=== PATIENT | male | born 2000 | race Two or more races ===

== ENCOUNTER 2018-05-27 19:21 | Observation (INO) | payer SELFPAY ==
[~2018-05-27] VITALS: Ht 185.4 cm; Wt 72.6 kg
[2018-05-27] MEDS ORDERED: SODIUM CHLORIDE 0.9% 1,000 ML IV ONE (20:00)
[2018-05-27 20:27] LABS: Basophils # (auto) 0 uL; Basophils % (auto) 0.6 % (0.0-2.0); Eosinophils # (auto) 0 uL; Eosinophils % (auto) 0.5 % (0.0-7.0); Hematocrit 44.4 % (41.0-53.0); Hemoglobin 15.2 g/dL (13.5-17.5); Lymphocytes # (auto) 0.7 uL; Lymphocytes % (auto) 12.4 % (10.0-50.0); Mean Corpuscular Hemoglobin 31.7 pg (28.0-32.0); Mean Corpuscular Hgb Conc. 34.3 g/dL (32.0-36.0); Mean Corpuscular Volume 92.3 fL (80.0-100.0); Monocytes # (auto) 0.4 uL; Monocytes % (auto) 6.2 % (0.0-12.0); Neutrophils # (auto) 4.6 uL; Neutrophils % (auto) 80.3 % (37.0-80.0); Platelet Count (auto) 237 10^3/uL (140-450); Red Blood Cells 4.81 10^6/uL (4.5-5.90); Red Cell Distribution Width 13.2 % (11.8-14.3); White Blood Cell 5.7 10^3/uL (4.4-10.8)
[2018-05-27 20:30] VITALS: BP 127/57
[2018-05-27 20:43] LABS: Anion Gap 9 (5-15); Blood Alcohol < 3.0 mg/dL (0-5); Calcium 8.3 mg/dL (8.5-10.1); Carbon Dioxide 26 mmol/L (21-32); Chloride 106 mmol/L (98-107); Glucose 125 mg/dL (74-106); Potassium 4.7 mmol/L (3.5-5.1); Sodium 141 mmol/L (136-145)
[2018-05-27 20:48] LABS: Alanine Aminotransferase 18 U/L (16-61); Aspartate Aminotransferase 17 U/L (15-37); Bilirubin, Total 0.6 mg/dL (0.2-1.0); Blood Urea Nitrogen 14 mg/dL (7-18); GFR African American 123 mL/min; GFR Non-African American 101 mL/min
[2018-05-27 20:50] LABS: Alkaline Phosphatase 104 U/L (45-117); Total Protein 7.3 g/dL (6.4-8.2)
[2018-05-27 22:05] LABS: Urine Bacteria NONE SEEN /hpf (None Seen); Urine Blood Negative /uL (Negative); Urine Hyaline Cast FEW /lpf (0 - 2); Urine Mucus FEW (None Seen); Urine Specific Gravity 1.024 (1.001-1.035); Urine WBC 2 /hpf (0 - 3)
[2018-05-27 22:16] LABS: Amphetamine Screen, Urine NEGATIVE (NEGATIVE); Barbiturate Scree,Urine NEGATIVE (NEGATIVE); Benzodiazephine Screen, Urine NEGATIVE (NEGATIVE); Cannabinoid Screen, Urine POSITIVE (NEGATIVE); Cocaine Screen, Urine NEGATIVE (NEGATIVE); Opiate Scree,Urine NEGATIVE (NEGATIVE); Phencyclidine Screen, Urine NEGATIVE (NEGATIVE)
== END 2018-05-27 22:45 | disposition home or self-care (01) | DRG 312 ==
LOC: ER 19:21 → OVERFLOW 19:22 → ER 22:43
PROVIDERS: ADMIT Family Medicine; ATTEND Family Medicine
DX: R55 Syncope and collapse (principal); F12.90 Cannabis use, unspecified, uncomplicated; R51 Headache
CPT/HCPCS: 36415; 70450; 71045; 80053; 80307; 80320; 81001; 82962; 83735; 85025; 96360; 99285; G0378

== ENCOUNTER 2020-02-13 17:55 | Inpatient (IN) | payer MEDICAID ==
[~2020-02-13] VITALS: Ht 188 cm; Wt 79.6 kg
[2020-02-13] MEDS ORDERED: MORPHINE SULFATE 4 MG/ML SYR/VIAL IV ONE (19:00)
[2020-02-13] MEDS ORDERED: ONDANSETRON HCL 4 MG/2 ML VIAL IV ONE (19:00)
[2020-02-13 19:22] LABS: Basophils # (auto) 0 10 ^3/uL (0-0.2); Basophils % (auto) 0.3 % (0.0-2.0); Eosinophils # (auto) 0.1 10 ^3/uL (0-0.8); Eosinophils % (auto) 0.8 % (0.0-7.0); Hematocrit 42.8 % (41.0-53.0); Hemoglobin 14.4 g/dL (13.5-17.5); Lymphocytes # (auto) 0.9 10 ^3/uL (0.4-5.4); Lymphocytes % (auto) 8.7 % (10.0-50.0); Mean Corpuscular Hemoglobin 31.6 pg (28.0-32.0); Mean Corpuscular Hgb Conc. 33.6 g/dL (32.0-36.0); Mean Corpuscular Volume 93.9 fL (80.0-100.0); Monocytes # (auto) 0.8 10 ^3/uL (0-1.3); Monocytes % (auto) 7.7 % (0.0-12.0); Neutrophils # (auto) 8.2 10 ^3/uL (1.6-8.6); Neutrophils % (auto) 82.5 % (37.0-80.0); Nucleated Red Blood Cells % 0.1 %; Platelet Count (auto) 227 10^3/uL (140-450); Red Blood Cells 4.56 10^6/uL (4.5-5.90); Red Cell Distribution Width 12.9 % (11.8-14.3); White Blood Cell 9.9 10^3/uL (4.4-10.8)
[2020-02-13] MEDS ORDERED: SODIUM CHLORIDE 0.9% 1,000 ML IV SCH (19:32)
[2020-02-13 19:37] LABS: Albumin 3.2 g/dL (3.4-5.0); Calcium 7.9 mg/dL (8.5-10.1); Potassium 3.9 mmol/L (3.5-5.1)
[2020-02-13 19:40] LABS: BUN/Creatinine Ratio 15.1; Bilirubin, Total 0.2 mg/dL (0.2-1.0); Total Protein 6.5 g/dL (6.4-8.2)
[2020-02-13] MEDS ORDERED: DOCUSATE SOD 100 MG CAP PO PRN (19:45)
[2020-02-13] MEDS ORDERED: ALUM & MAG HYDROX-SIMETH LIQ(MAALOX) 30 ML PO PRN (19:45)
[2020-02-13] MEDS ORDERED: METOCLOPRAMIDE HCL 5MG/ml INJ 2ml VIAL IV PRN (19:45)
[2020-02-13] MEDS ORDERED: MORPHINE SULF INJ 2 MG/ML SYRINGE 1ML IV PRN (19:45)
[2020-02-13] MEDS ORDERED: NITROGLYCERIN 0.4 MG SL TAB SL PRN (19:45)
[2020-02-13] MEDS ORDERED: LORazepam 0.5 MG TAB PO PRN (19:45)
[2020-02-13 19:48] LABS: INR 1.07 (0.9-1.15); Partial Thromboplastin Time 25.1 sec (23.64-32.05)
[2020-02-13] MEDS: HYDROcodone-ACET 5/325MG TAB PO PRN (20:05)
--- NOTE | 2020-02-13 21:15 | NUR ---
MS admit from ER GABI HANNA admitted to tele/MS after SBAR received. Patient oriented to Evelia Myrick, primary RN, unit, room, bed, and unit policies regarding patient care and visiting hours. Patient weighed by bedscale and encouraged to call if they need something. All questions and concerns addressed, patient verbalized understanding. Note:
[2020-02-13 21:30] VITALS: BP 134/83
[2020-02-13] MEDS: MORPHINE SULFATE 4 MG/ML SYR/VIAL IV PRN (21:33)
--- NOTE | 2020-02-13 21:33 | NUR ---
PT MEDICATED WITH MORPHINE FOR PAIN IN RIGHT LEG SCALE 1-10 -9.
[2020-02-14] VITALS (7 sets, daily range): BP systolic 144–170; BP diastolic 81–96
[2020-02-14] MEDS: SODIUM CHLORIDE 0.9% 1,000 ML IV SCH ×3 (00:30→21:30)
[2020-02-14] MEDS: HYDROcodone-ACET 5/325MG TAB PO PRN ×2 (05:56→12:52)
[2020-02-14 06:06] LABS: Basophils # (auto) 0 10 ^3/uL (0-0.2); Basophils % (auto) 0.3 % (0.0-2.0); Eosinophils # (auto) 0.2 10 ^3/uL (0-0.8); Eosinophils % (auto) 2.6 % (0.0-7.0); Hemoglobin 14.4 g/dL (13.5-17.5); Lymphocytes # (auto) 1.4 10 ^3/uL (0.4-5.4); Lymphocytes % (auto) 19.3 % (10.0-50.0); Mean Corpuscular Hgb Conc. 34.2 g/dL (32.0-36.0); Mean Corpuscular Volume 93.5 fL (80.0-100.0); Monocytes # (auto) 0.8 10 ^3/uL (0-1.3); Monocytes % (auto) 11.2 % (0.0-12.0); Neutrophils # (auto) 4.8 10 ^3/uL (1.6-8.6); Neutrophils % (auto) 66.6 % (37.0-80.0); Nucleated Red Blood Cells % 0.1 %; Platelet Count (auto) 214 10^3/uL (140-450); Red Blood Cells 4.49 10^6/uL (4.5-5.90); Red Cell Distribution Width 12.7 % (11.8-14.3); White Blood Cell 7.2 10^3/uL (4.4-10.8)
[2020-02-14 06:23] LABS: INR 1.05 (0.9-1.15); Partial Thromboplastin Time 26.8 sec (23.64-32.05)
[2020-02-14 06:36] LABS: Potassium 3.9 mmol/L (3.5-5.1)
[2020-02-14 06:53] LABS: Albumin 3.1 g/dL (3.4-5.0); BUN/Creatinine Ratio 14.1; Bilirubin, Total 0.4 mg/dL (0.2-1.0); Magnesium 2.3 mg/dL (1.6-2.6); Phosphorus 4.1 mg/dL (2.5-4.90); Total Protein 6.2 g/dL (6.4-8.2)
--- NOTE | 2020-02-14 07:21 | NUR ---
GOOD RELIEF FROM [facility] 1 TAB GIVEN AT 0556 FOR BONE PAIN. PT RESTING COMFORTABLY WITH EYES CLOSED AND RESP EVEN UNLAB. CALL LIGHT IN REACH WITH TWO SIDERAILS UP.
--- NOTE | 2020-02-14 07:25 | NUR ---
CARE ENDORSED TO ALEXANDER TOBIN.
--- NOTE | 2020-02-14 07:25 | NUR ---
Opening Shift Note Assumed care of patient, resting in bed with eyes closed. No S/S of distress/SOB or pain. Bed is set in lowest locked position with side rails up x 2 for safety and call light is within reach, will continue to monitor for changes Q1hr and PRN.
[2020-02-14] MEDS: ENOXAPARIN SOD 40 MG/0.4 ML SYRINGE SC SCH (10:00)
[2020-02-14] MEDS: MORPHINE SULFATE 4 MG/ML SYR/VIAL IV PRN ×3 (10:43→21:36)
--- NOTE | 2020-02-14 16:00 | NUR ---
paged in regards to pain Dr. Logan, patient reports pain at a level of 10/10 to his right leg. Awaiting call back.
[2020-02-14] MEDS ORDERED: HYDROcodone-ACET 5/325MG TAB PO ONE (16:30)
--- NOTE | 2020-02-14 16:30 | NUR ---
Spoke to MD Dr. Doreen MD aware of patient's pain level, new orders received and read back for verification, will proceed to carry out orders.
--- NOTE | 2020-02-14 17:50 | NUR ---
overhead crane technician at bedside Zoran, currently assessing patient and re-applied splint to right leg.
--- NOTE | 2020-02-14 18:30 | NUR ---
Spoke to MD in regards to pain Patient states he has pain to his right leg 07/25. New orders received and read back for verification. Will proceed to carry out orders.
[2020-02-14] MEDS: CALCIUM W/VIT D (600MG/400IU) TAB PO SCH (18:41)
[2020-02-14] MEDS: HYDROmorphone HCL 2 MG/ML VL IV PRN ×2 (18:41→23:11)
--- NOTE | 2020-02-14 19:19 | NUR ---
Care endorsed to NOC RN.
--- NOTE | 2020-02-14 19:25 | NUR ---
Opening Shift Note Received report from Radha TOBIN. Assumed care of patient, asleep at this time. No S/S of distress/SOB or pain. Will continue to monitor for changes Q1hr and PRN.
[2020-02-15 01:50] LABS: Urine WBC None Seen /hpf (0 - 3)
[2020-02-15 01:59] LABS: Urine Amorphous Crystal FEW /hpf (None Seen); Urine Bacteria NONE SEEN /hpf (None Seen); Urine Blood Negative /uL (Negative); Urine Specific Gravity 1.009 (1.001-1.035)
[2020-02-15] MEDS: MORPHINE SULFATE 4 MG/ML SYR/VIAL IV PRN (03:37)
[2020-02-15 05:00] VITALS: BP 147/77
--- NOTE | 2020-02-15 05:00 | NUR ---
Patient's temp is 99.9, ice pack placed under armpit, will recheck after 1 hour.
[2020-02-15] MEDS: HYDROmorphone HCL 2 MG/ML VL IV PRN ×2 (05:25→11:40)
--- NOTE | 2020-02-15 06:00 | NUR ---
Latest temp is 98.8, continue care.
--- NOTE | 2020-02-15 07:18 | NUR ---
Opening Shift Note Assumed care of patient, resting in bed with eyes closed. No S/S of distress/SOB or pain, breaths are even and unlabored. Right leg is elevated at this time, splint is in place. Bed is set in lowest locked position with side rails up x 2 for safety and call light is within reach, will continue to monitor for changes Q1hr and PRN.
[2020-02-15] MEDS: HYDROcodone-ACET 7.5/325MG TAB PO PRN ×2 (07:58→13:21)
[2020-02-15] MEDS: SODIUM CHLORIDE 0.9% 1,000 ML IV SCH (08:00)
[2020-02-15 08:02] VITALS: BP 132/84
[2020-02-15] MEDS: CALCIUM W/VIT D (600MG/400IU) TAB PO SCH (08:12)
[2020-02-15 09:00] VITALS: BP 149/89
[2020-02-15] MEDS: ENOXAPARIN SOD 40 MG/0.4 ML SYRINGE SC SCH (09:31)
--- NOTE | 2020-02-15 09:58 | NUR ---
Spoke to , Dr. Logan Per MD, Dr. Bolton communicated verbally patient is clear to be discharged home from orthopedic standpoint. Patient is to follow up with orthopedic MD outpatient 10 days following discharge for intervention due to skin risk, patient is to be non-weight bearing to right leg, and to be discharged home on PO antibiotics and pain medication. Per MD request, will communicate message to the hospitalist assigned to patient.
--- NOTE | 2020-02-15 12:51 | NUR ---
Physical therapy at bedside Currently adjusting crutches to patient, patient educated on proper use of crutches at this time. All questions answered.
[2020-02-15 13:00] VITALS: BP 148/88
[2020-02-15 13:03] VITALS: BP_SYST 132; BP_SYST 148; BP_DIAS 84; BP_DIAS 88
--- NOTE | 2020-02-15 13:55 | NUR ---
Spoke to patient's friend Eileen, after verifying the patient information password, updated friend on patient's plan for discharge, provided discharge instructions and answered all questions. Eileen verbalized understanding.
--- NOTE | 2020-02-15 14:44 | NUR ---
Discharge instructions given as ordered. Encourage to follow up with PMD as instructed. All questions and concerns addressed. Patient verbalized understanding. IV removed with catheter intact, pressure dressing applied. Patient educated on non-weight bearing to right lower extremity, use of crutches and to follow-up with Dr. Bolton 10 days following discharge. Patient taken to vehicle via wheelchair with all personal belongings, accompanied by staff. No distress noted at time of departure.
== END 2020-02-15 14:46 | disposition home or self-care (01) | DRG 342 ==
LOC: ER 17:55 → OVERFLOW 17:56 → CENTRAL 21:29
PROVIDERS: ADMIT Hospitalist; ATTEND Internal Medicine Nephrology
PROC: 2W3MX1Z Immobilization of Left Lower Extremity using Splint (ICD-10-PCS; principal; 2020-02-13)
DX: S82.251A Displaced comminuted fracture of shaft of right tibia, initial encounter for closed fracture (principal); E83.51 Hypocalcemia; E88.09 Other disorders of plasma-protein metabolism, not elsewhere classified; F90.9 Attention-deficit hyperactivity disorder, unspecified type; S82.301A Unspecified fracture of lower end of right tibia, initial encounter for closed fracture; Y92.89 Other specified places as the place of occurrence of the external cause; S82.491A Other fracture of shaft of right fibula, initial encounter for closed fracture; R74.0 Nonspecific elevation of levels of transaminase and lactic acid dehydrogenase [LDH]; Z79.899 Other long term (current) drug therapy; Y99.8 Other external cause status; Z86.79 Personal history of other diseases of the circulatory system; V86.56XA Driver of dirt bike or motor/cross bike injured in nontraffic accident, initial encounter; Y93.55 Activity, bike riding; Z86.59 Personal history of other mental and behavioral disorders
CPT/HCPCS: 36415; 71045; 73590; 73610; 73630; 73700; 80053; 81001; 83735; 84100; 85025; 85610; 85730; 86850; 86900; 86901; G0378; J2405

== ENCOUNTER 2021-03-16 14:09 | Inpatient (IN) | payer MEDICAID ==
[~2021-03-16] VITALS: Ht 193 cm; Wt 72.1 kg
[2021-03-16] MEDS ORDERED: methylPREDNISolone SOD SUCC 125 MG/2 ML VL ONE (14:18)
[2021-03-16] MEDS ORDERED: diphenhdrAMINE HCL 50 MG/1 ML VL ONE (14:18)
[2021-03-16] MEDS ORDERED: FAMOTIDINE (10MG/ML) 2ML VL IV ONE ×2 (14:18→14:30)
[2021-03-16] MEDS ORDERED: methylPREDNISolone SOD SUCC 125 MG/2 ML VL IV ONE (14:30)
[2021-03-16] MEDS ORDERED: diphenhdrAMINE HCL 50 MG/1 ML VL IV ONE (14:30)
[2021-03-16] MEDS ORDERED: SODIUM CHLORIDE 0.9% 1,000 ML IV ONE (14:30)
[2021-03-16 15:22] LABS: Basophils # (auto) 0 10 ^3/uL (0-0.2); Basophils % (auto) 0.2 % (0.0-2.0); Eosinophils # (auto) 0 10 ^3/uL (0-0.8); Eosinophils % (auto) 0.4 % (0.0-7.0); Hematocrit 37.8 % (41.0-53.0); Hemoglobin 13.4 g/dL (13.5-17.5); Lymphocytes # (auto) 0.6 10 ^3/uL (0.4-5.4); Lymphocytes % (auto) 6.2 % (10.0-50.0); Mean Corpuscular Hemoglobin 32.3 pg (28.0-32.0); Mean Corpuscular Hgb Conc. 35.5 g/dL (32.0-36.0); Mean Corpuscular Volume 90.9 fL (80.0-100.0); Monocytes # (auto) 0.6 10 ^3/uL (0-1.3); Monocytes % (auto) 5.3 % (0.0-12.0); Neutrophils # (auto) 9.2 10 ^3/uL (1.6-8.6); Neutrophils % (auto) 87.9 % (37.0-80.0); Platelet Count (auto) 214 10^3/uL (140-450); Red Blood Cells 4.16 10^6/uL (4.5-5.90); Red Cell Distribution Width 13.1 % (11.8-14.3); White Blood Cell 10.5 10^3/uL (4.4-10.8)
[2021-03-16 15:34] LABS: Calcium 7.9 mg/dL (8.5-10.1); Potassium 3.7 mmol/L (3.5-5.1)
[2021-03-16 15:49] LABS: Albumin 3.4 g/dL (3.4-5.0); BUN/Creatinine Ratio 16.3; Bilirubin, Total 0.3 mg/dL (0.2-1.0); Magnesium 2.1 mg/dL (1.6-2.6); Total Protein 6.5 g/dL (6.4-8.2)
[2021-03-16] MEDS ORDERED: diphenhdrAMINE HCL 50 MG/1 ML VL IV PRN (16:15)
[2021-03-16] MEDS ORDERED: MORPHINE SULF INJ 2 MG/ML SYRINGE 1ML IV PRN (16:15)
[2021-03-16 16:22] LABS: Urine Bacteria NONE SEEN /hpf (None Seen); Urine Blood Negative /uL (Negative); Urine Specific Gravity 1.021 (1.001-1.035); Urine WBC <1 /hpf (0 - 3)
[2021-03-16] MEDS: SODIUM CHLORIDE 0.9% 1,000 ML IV SCH (16:40)
[2021-03-16] MEDS: ONDANSETRON HCL 4 MG/2 ML VIAL IV PRN (16:53)
[2021-03-16] MEDS ORDERED: KETOROLAC TROMETH 30 MG/ML 1ML VIAL IV ONE (20:00)
[2021-03-16] MEDS ORDERED: KETOROLAC TROMETH 60MG/2ML VIAL ONE (20:01)
[2021-03-16] MEDS: FAMOTIDINE (10MG/ML) 2ML VL IV SCH (21:24)
[2021-03-16] MEDS: methylPREDNISolone SOD SUCC 125 MG/2 ML VL IV SCH (21:24)
[2021-03-16 22:00] VITALS: BP 122/61
[2021-03-17] MEDS: SODIUM CHLORIDE 0.9% 1,000 ML IV SCH ×2 (01:48→13:34)
[2021-03-17 04:35] VITALS: BP 107/48
[2021-03-17] MEDS: methylPREDNISolone SOD SUCC 125 MG/2 ML VL IV SCH (05:13)
[2021-03-17] MEDS: MORPHINE SULF INJ 2 MG/ML SYRINGE 1ML IV PRN ×4 (05:14→22:30)
[2021-03-17 09:00] VITALS: BP 120/64
[2021-03-17] MEDS ORDERED: cefTRIAXone 1GM/50ML D5W 50 ML IV SCH (09:00)
[2021-03-17] MEDS: FAMOTIDINE (10MG/ML) 2ML VL IV SCH ×2 (09:54→22:10)
[2021-03-17] MEDS ORDERED: AZITHROMYCIN 500MG/ 250ML 250 ML IV SCH (10:00)
[2021-03-17] MEDS ORDERED: AMOXICILLIN/CLAVUL 875 MG TAB PO SCH (11:15)
[2021-03-17] MEDS ORDERED: IOHEXOL 300 MG/ML 100ML BOTTLE IJ ONE (11:27)
[2021-03-17 13:00] VITALS: BP 128/77
[2021-03-17] MEDS: THROAT LOZENGES(CEPASTAT) MT PRN ×2 (13:34→19:51)
[2021-03-17] MEDS ORDERED: VANCOMYCIN 1GM/250ML 250 ML IV ONE (14:59)
[2021-03-17] MEDS ORDERED: VANCOMYCIN PER PHARMACY 0 MG IV SCH (15:00)
[2021-03-17 17:00] VITALS: BP 136/75
[2021-03-17] MEDS: D5W/SOD CHL 0.45% 1,000 ML IV SCH (17:25)
[2021-03-17] MEDS: ACETAMINOPHEN 325 MG TAB PO PRN (17:26)
[2021-03-17 21:57] VITALS: BP 123/77
[2021-03-18] MEDS: VANCOMYCIN 1GM/250ML 250 ML IV SCH ×3 (01:56→17:34)
[2021-03-18] MEDS: D5W/SOD CHL 0.45% 1,000 ML IV SCH ×3 (04:38→21:48)
[2021-03-18 04:46] VITALS: BP 112/64
[2021-03-18 07:30] VITALS: BP 133/78
[2021-03-18] MEDS: FAMOTIDINE (10MG/ML) 2ML VL IV SCH ×2 (09:02→21:48)
[2021-03-18] MEDS: cefTRIAXone 1GM/50ML D5W 50 ML IV SCH (09:02)
[2021-03-18] MEDS: predniSONE 20 MG TAB PO SCH (09:03)
[2021-03-18] MEDS: ONDANSETRON HCL 4 MG/2 ML VIAL IV PRN ×2 (09:03→13:15)
[2021-03-18] MEDS: MORPHINE SULF INJ 2 MG/ML SYRINGE 1ML IV PRN ×4 (09:03→21:48)
[2021-03-18 13:00] VITALS: BP 121/67
[2021-03-18] MEDS ORDERED: methylPREDNISolone SOD SUCC 40 MG/ML VL IV ONE (15:00)
[2021-03-18 16:19] VITALS: BP 118/63
[2021-03-18] MEDS: THROAT LOZENGES(CEPASTAT) MT PRN (19:34)
[2021-03-18 22:00] VITALS: BP 136/77
[2021-03-19] MEDS: VANCOMYCIN 1GM/250ML 250 ML IV SCH ×2 (01:42→10:00)
[2021-03-19 05:00] VITALS: BP 109/60
[2021-03-19 06:03] VITALS: BP 109/60
[2021-03-19] MEDS: D5W/SOD CHL 0.45% 1,000 ML IV SCH (07:00)
[2021-03-19 08:00] VITALS: BP 126/78
[2021-03-19] MEDS: cefTRIAXone 1GM/50ML D5W 50 ML IV SCH ×2 (09:37→09:39)
[2021-03-19] MEDS: FAMOTIDINE (10MG/ML) 2ML VL IV SCH (10:00)
[2021-03-19] MEDS: predniSONE 20 MG TAB PO SCH (10:00)
[2021-03-19] MEDS: ACETAMINOPHEN 325 MG TAB PO PRN (10:48)
== END 2021-03-19 11:40 | disposition short-term general hospital (02) | DRG 113 ==
LOC: ER 14:09 → OVERFLOW 16:10 → CENTRAL 18:33 → TELE-CENTR 03-17 16:24
PROVIDERS: ADMIT Nurse Practitioner Acute Care; ATTEND Internal Medicine
DX: J05.10 Acute epiglottitis without obstruction (principal); B95.0 Streptococcus, group A, as the cause of diseases classified elsewhere; T78.3XXA Angioneurotic edema, initial encounter; Z83.3 Family history of diabetes mellitus; Z87.892 Personal history of anaphylaxis; Z20.822 Contact with and (suspected) exposure to COVID-19
CPT/HCPCS: 36415; 70491; 71045; 80053; 80202; 81001; 82565; 83735; 85025; 87040; 87426; 87880; 96365; 96367; 96375; 99291; G0378; J0696; J1885; J2405; J3490

== ENCOUNTER 2022-08-03 04:33 | Emergency (ER) | payer BC, MEDICAID ==
[~2022-08-03] VITALS: Ht 182.9 cm; Wt 68.0 kg
[2022-08-03] MEDS ORDERED: IOHEXOL 300 MG/ML 100ML BOTTLE IJ ONE (05:00)
[2022-08-03 06:32] LABS: Basophils # (auto) 0 10 ^3/uL (0-0.2); Basophils % (auto) 0.2 % (0.0-2.0); Eosinophils # (auto) 0 10 ^3/uL (0-0.8); Eosinophils % (auto) 0.1 % (0.0-7.0); Hematocrit 40.9 % (41.0-53.0); Hemoglobin 14.2 g/dL (13.5-17.5); Lymphocytes # (auto) 0.3 10 ^3/uL (0.4-5.4); Lymphocytes % (auto) 2.1 % (10.0-50.0); Mean Corpuscular Hemoglobin 31.1 pg (28.0-32.0); Mean Corpuscular Hgb Conc. 34.7 g/dL (32.0-36.0); Mean Corpuscular Volume 89.6 fL (80.0-100.0); Monocytes # (auto) 0.6 10 ^3/uL (0-1.3); Monocytes % (auto) 4.9 % (0.0-12.0); Neutrophils % (auto) 92.7 % (37.0-80.0); Red Blood Cells 4.56 10^6/uL (4.5-5.90); White Blood Cell 12.9 10^3/uL (4.4-10.8)
[2022-08-03] MEDS ORDERED: DexAMETHasone SOD PHOS 10MG/1ML VIAL INJ IV ONE ×2 (06:45→09:00)
[2022-08-03] MEDS ORDERED: LACTATED RINGER'S 1,000 ML IV ONE (06:45)
[2022-08-03] MEDS ORDERED: ACETAMINOPHEN 325 MG TAB PO ONE (06:45)
[2022-08-03] MEDS ORDERED: CLINDAMYCIN 600MG IV 50 ML IV ONE (06:45)
[2022-08-03 06:52] LABS: Albumin 3.5 g/dL (3.4-5.0); Potassium 3.9 mmol/L (3.5-5.1)
[2022-08-03 06:54] LABS: BUN/Creatinine Ratio 10.5
[2022-08-03] MEDS ORDERED: MORPHINE SULFATE INJ 2 MG/ml SYRG IV ONE (07:00)
[2022-08-03 07:09] LABS: Bilirubin, Total 0.4 mg/dL (0.2-1.0); Total Protein 6.7 g/dL (6.4-8.2)
[2022-08-03] MEDS ORDERED: CEFTRIAXONE SODIUM 2 GM in D5W 5% 50 ML IV ONE (07:15)
[2022-08-03] MEDS ORDERED: ACETAMINOPHEN 650 MG RECT SUPP PR ONE (07:15)
[2022-08-03] MEDS ORDERED: VANCOMYCIN 1GM/250ML 250 ML IV ONE (07:15)
[2022-08-03] MEDS ORDERED: D5W/SOD CHLO 0.9% 1,000 ML IV ONE (07:15)
[2022-08-03] MEDS ORDERED: LORazepam 2MG/ML-1ML VIAL IV ONE ×2 (07:30→08:45)
[2022-08-03] MEDS ORDERED: ONDANSETRON HCL 4 MG/2 ML VIAL IV ONE (07:30)
[2022-08-03] MEDS ORDERED: EPINEPHrine HCL 0.5 ML NEB NEB ONE ×2 (07:30→09:15)
[2022-08-03] MEDS ORDERED: ACETAMINOPHEN 325 MG RECT SUPP PR ONE (08:00)
[2022-08-03] MEDS ORDERED: EPINEPHrine HCL 0.5 ML NEB ONE (09:06)
[2022-08-03 12:04] VITALS: BP 134/77
== END 2022-08-03 09:49 | disposition short-term general hospital (02) ==
LOC: ER 04:33 → EDBD 04:33 → ER 09:49
DX: J05.10 Acute epiglottitis without obstruction (principal); D72.829 Elevated white blood cell count, unspecified; J03.90 Acute tonsillitis, unspecified; R51.9 Headache, unspecified; Z20.822 Contact with and (suspected) exposure to COVID-19
CPT/HCPCS: 36415; 70491; 80053; 83605; 85025; 87426; 93005; 94640; 96365; 96368; 96375; 99285; J0696; J1100; J2060; J2270; J2405; J3370; J7060; Q9967

== ENCOUNTER 2025-07-16 01:24 | Inpatient (IN) | payer BC, MEDICAID ==
[~2025-07-16] VITALS: Ht 182.9 cm; Wt 81.7 kg
--- NOTE | 2025-07-16 01:50 | ECG ---
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
--- NOTE | 2025-07-16 01:54 | ED.PDOC ---
SOB-HPI HPI Comments 25-year-old male who came to ER for shortness of breath. Patient has history of SVTs. States for the past 2 weeks, he has been having shortness of breath associated with the cough with the occasional blood-tinged sputum, associated with left-sided chest pains, pressure, with nausea and vomiting states he could not keep anything in. Patient is saturating 100% on room air Chief Complaint: Shortness of Breath Time Seen by MD: 01:54 Primary Care Provider: NONE Reviewed notes: Nurses Notes Information Source: Patient Mode of Arrival: Ambulatory Severity: Moderate Timing: Hours Duration: Minutes Past Medical History Past Medical History (Other): SVTs Surgical History: Denies all surgeries Family History Family History: Family hx of DM Social History Smoker: Non-Smoker Alcohol: Denies ETOH Use Drugs: Denies Drug Use Lives In: Home Constitutional: denies: chills, diaphoresis, fatigue, fever, malaise, sweats, weakness, others EENTM: denies: blurred vision, double vision, ear bleeding, ear discharge, ear drainage, ear pain, ear ringing, eye pain, eye redness, hearing loss, mouth pain, mouth swelling, nasal discharge, nose bleeding, nose congestion, nose pain, photophobia, tearing, throat pain, throat swelling, voice changes, others Respiratory: reports: cough, SOB at rest, shortness of breath; denies: hemoptysis, orthopnea, SOB with excertion, stridor, wheezing, others Cardiovascular: reports: chest pain; denies: dizzy spells, diaphoresis, Dyspnea on exertion, edema, irregular heart beat, left arm pain, lightheadedness, palpitations, PND, syncope, others Gastrointestinal: reports: nausea, vomiting; denies: abdomen distended, abdominal pain, blood streaked bowels, constipated, diarrhea, dysphagia, difficulty swallowing, hematemesis, melena, poor appetite, poor fluid intake, rectal bleeding, rectal pain, others Genitourinary: denies: burning, dysuria, flank pain, frequency, hematuria, incontinence, penile discharge, penile sore, pain, testicle pain, testicle swelling, urgency, others Neurological: denies: dizziness, fainting, headache, left sided numbness, left sided weakness, numbness, paresthesia, pre-existing deficit, right sided numbness, right sided weakness, seizure, speech problems, tingling, tremors, weakness, others Musculoskeletal: denies: back pain, gout, joint pain, joint swelling, muscle pain, muscle stiffness, neck pain, others Integumetry: denies: bruises, change in color, change in hair/nails, dryness, laceration, lesions, lumps, rash, wounds, others Allergic/Immunocompromised: denies: Difficulty Healing, Frequent Infections, Hives, Itching, others Hematologic/Lymphatic: denies: anemia, blood clots, easy bleeding, easy bruising, swollen glands, others Endocrine: denies: excessive hunger, excessive sweating, excessive thirst, excessive urination, flushing, intolerance to cold, intolerance to heat, unexplained weight gain, unexplained weight loss, others Psychiatric: denies: anxiety, bipolar disorder, depression, hopeless, panic disorder, schizophrenia, sleepless, suicidal, others Physical Exam General Appearance: No Apparent Distress, Normal HEENT: Normal ENT Inspection, Pharynx Normal, TMs Normal Neck: Full Range of Motion, Non-Tender, Normal, Normal Inspection Respiratory: Chest Non-Tender, Lungs Clear, No Accessory Muscle Use, No Respiratory Distress, Normal Breath Sounds Cardiovascular: No Edema, No JVD, No Murmur, No Gallop, Normal Peripheral Pulses, Tachycardia Breast Exam: Deferred Gastrointestinal: No Organomegaly, Non Tender, No Pulsatile Mass, Normal Bowel Sounds, Soft Genitalia: Deferred Pelvic: Deferred Rectal: Deferred Extremities: No calf tenderness, Normal capillary refill, Normal inspection, Normal range of motion, Non-tender, No pedal edema Musculoskeletal : Apperance: Normal Neurologic: Alert, optometric tech II-XII nml as Tested, No Motor Deficits, Normal Affect, Normal Mood, No Sensory Deficits Cerebellar Function: Normal Reflexes: Normal Skin: Dry, Normal Color, Warm Lymphatic: No Adenopathy EKG EKG : Pulse Rate (adult): 123 Cardiac Rhythm: ST Hypertrophy: LAE Was a procedure done? Was a procedure done?: No Differential Dx Differential Diagnosis: Bronchitis, Panic Attack, Pneumonia, Respiratory Distre ss, Pharyngitis, URI X-Ray, Labs, Meds, VS Vital Signs Date Time Temp Pulse Resp B/P (MAP) Pulse Ox O2 Delivery O2 Flow Rate FiO2 07/16/25 04:42 128 07/16/25 02:54 98.1 130 20 123/88 (100) 100 98.1 07/16/25 02:43 130 07/16/25 01:54 123 07/16/25 01:40 133 07/16/25 01:32 97.5 67 18 124/79 100 97.5 Lab Test 07/16/25 04:44 07/16/25 02:26 07/16/25 01:46 Range/Units Lactic Acid Level Pending 3.1 *H 0.4-2.0 mmol/L Troponin I High Sensitivity Pending 42 45 </=54 ng/L White Blood Count 6.7 4.4-10.8 10^3/uL Red Blood Count 5.00 4.5-5.90 10^6/uL Hemoglobin 15.6 13.5-17.5 g/dL Hematocrit 46.3 41.0-53.0 % Mean Corpuscular Volume 92.7 80.0-100.0 fL Mean Corpuscular Hemoglobin 31.1 28.0-32.0 pg Mean Corpuscular Hemoglobin Concent 33.6 32.0-36.0 g/dL Red Cell Distribution Width 14.6 H 11.8-14.3 % Platelet Count 234 140-450 10^3/uL Mean Platelet Volume 8.6 6.9-10.8 fL Neutrophils (%) (Auto) 73.1 37.0-80.0 % Lymphocytes (%) (Auto) 20.4 10.0-50.0 % Monocytes (%) (Auto) 5.9 0.0-12.0 % Eosinophils (%) (Auto) 0.3 0.0-7.0 % Basophils (%) (Auto) 0.3 0.0-2.0 % Neutrophils # (Auto) 4.9 1.6-8.6 10 ^3/uL Lymphocytes # (Auto) 1.4 0.4-5.4 10 ^3/uL Monocytes # (Auto) 0.4 0-1.3 10 ^3/uL Eosinophils # (Auto) 0 0-0.8 10 ^3/uL Basophils # (Auto) 0 0-0.2 10 ^3/uL Nucleated Red Blood Cells 0.3 % D-Dimer, Quantitative 7.29 H 0.0-0.49 mg/L FEU Sodium Level 139 136-145 mmol/L Potassium Level 4.6 3.5-5.1 mmol/L Chloride Level 105 98-107 mmol/L Carbon Dioxide Level 20 20-31 mmol/L Anion Gap 14 5-15 Blood Urea Nitrogen 14 9-23 mg/dL Creatinine 1.31 H 0.700-1.30 mg/dL Glomerular Filtration Rate Calc 77 >90 mL/min BUN/Creatinine Ratio 10.7 10.0-20.0 Serum Glucose 127 H 74-106 mg/dL Calcium Level 8.6 L 8.7-10.4 mg/dL Total Bilirubin 1.7 H 0.2-1.0 mg/dL Aspartate Amino Transferase (AST) 215 H 13-40 U/L Alanine Aminotransferase (ALT) 152 H 7-40 U/L Alkaline Phosphatase 169 H 46-116 U/L B-Type Natriuretic Peptide 1066.13 0-100 pg/mL Total Protein 6.5 5.7-8.2 g/dL Albumin 4.1 3.2-4.8 g/dL Current Medications Medications (Trade) Dose Ordered Sig/Chrystal Route Start Time Stop Time Status Last Admin Sodium Chloride 1,000 ml @ 1,000 mls/hr Q1H ONCE IV 07/16/25 02:00 07/16/25 02:59 DC 07/16/25 03:29 Ondansetron HCl (Zofran) 4 mg ONCE ONCE IV 07/16/25 02:00 07/16/25 02:01 DC 07/16/25 03:29 Piperacillin Sod/ Tazobactam Sod 100 ml @ 100 mls/hr ONCE ONCE IV 07/16/25 03:45 07/16/25 04:44 DC 07/16/25 04:06 CHEST RADIOGRAPH Indication: SOB Technique: Single frontal view of the chest was obtained COMPARISON: EKG on DOS: 08/03/22, CHEST PORTABLE on DOS: 03/16/21 FINDINGS: Lines and Tubes: None Lungs: Clear Pleura: No effusion. No pneumothorax. Cardiomediastinal contours: Cardiomegaly. Bones: Unremarkable IMPRESSION: 1. Cardiomegaly. Time of 1ST Reevaluation: 01:50 Reevaluation 1ST: Unchanged Patient Education/Counseling: Diagnosis, Treatment Family Education/Counseling: Diagnosis, Treatment SEPSIS Sepsis Screen Date sepsis recognized/suspect: Jul 16, 2025 Time Sepsis recognized/suspect: 0138 Recent Procedure: No On Antibiotic Therapy: No Respiratory Rate >20: No Heart Rate >90: No Temp<36 C (96.8 F) or >38.3 C: No SBP <90 or MAP <65 mmHG: No New Acute Mental Status Change: No Is the patient on CPAP, BIPAP,: No Physician Orders Chest Portable (07/16/25 01:47) Troponin-I Hs (07/16/25 04:47) Blood Culture (07/16/25 01:47) Covid19 Antigen Kait (07/16/25 ) Rapid Influenza A&B (07/16/25 01:47) Ct Angio Chest Contrast (07/16/25 03:43) Vital Signs Date Time Temp Pulse Resp B/P (MAP) Pulse Ox O2 Delivery O2 Flow Rate FiO2 07/16/25 04:42 128 07/16/25 02:54 98.1 130 20 123/88 (100) 100 98.1 07/16/25 02:43 130 07/16/25 01:54 123 07/16/25 01:40 133 07/16/25 01:32 97.5 67 18 124/79 100 97.5 Laboratory Tests Test 07/16/25 01:46 07/16/25 02:26 07/16/25 04:44 White Blood Count 6.7 10^3/uL (4.4-10.8) Lactic Acid Level 3.1 mmol/L (0.4-2.0) *H Pending Medications Medications Dose Ordered Sig/Chrystal Route Start Time Stop Time Status Last Admin Dose Admin Ondansetron HCl 4 mg ONCE ONCE IV 07/16/25 02:00 07/16/25 02:01 DC 07/16/25 03:29 Piperacillin Sod/ Tazobactam Sod 100 ml @ 100 mls/hr ONCE ONCE IV 07/16/25 03:45 07/16/25 04:44 DC 07/16/25 04:06 Sodium Chloride 1,000 ml @ 1,000 mls/hr Q1H ONCE IV 07/16/25 02:00 07/16/25 02:59 DC 07/16/25 03:29 Departure 1 Departure Time of Disposition: 05:22 Impression: Primary Impression: Diastolic congestive heart failure Disposition: 09 ADMITTED INPATIENT Admit to: Tele Condition: Guarded e-Prescriptions No Active Prescriptions or Reported Meds Discharged With: Self Comments 25-year-old male with shortness of breath. Patient noted to be tachycardic. On his lab review his BNP is quite elevated at a 1000. Chest x-ray shows cardiomegaly. His D-dimer was quite elevated is 7. A CT angio of the chest did not conclusive they show pulmonary embolus. There were some pleural effusions. Patient appears to have diastolic congestive heart failure. Patient will need to be admitted for further cardiac workup and supportive care. Critical Care Note Critical Care Time?: Yes (35 min-critical care time only) Critical care comment: Total critical care time: Approximately 36 minutes Due to a high probability of clinically significant, life threatening deterioration, the patient required my highest level of preparedness to intervene emergently and I personally spent this critical care time directly and personally managing the patient. This critical care time included obtaining a history; examining the patient; pulse oximetry; ordering and review of studies; arranging urgent treatment with development of a management plan; evaluation of patient's response to treatment; frequent reassessment; and, discussions with other providers. This critical care time was performed to assess and manage the high probability of imminent, life-threatening deterioration that could result in multi-organ failure. It was exclusive of separately billable procedures and treating other patients. Stability Stability form required: No Heart Score Heart Score: Heart Score Response (Comments) Value History Moderate Suspicious 1 EKG Repolarization Disturb 1 Age <45 0 Risk Factors 1 or 2 risk factors 1 Troponin Normal limit 0 Total 3 I personally scribed for SOO OLEA MD ([email or web address]) on 07/16/25 at 01:54. Electronically submitted by Ben Dubon ([email or web address]). I personally scribed for SOO OLEA MD ([email or web address]) on 07/16/25 at 03:35. Electronically submitted by Ben Dubon ([email or web address]). SOO OLEA MD Jul 16, 2025 01:54
[2025-07-16 02:15] LABS: Hematocrit 46.3 % (41.0-53.0); Hemoglobin 15.6 g/dL (13.5-17.5); Mean Corpuscular Hemoglobin 31.1 pg (28.0-32.0); Mean Corpuscular Volume 92.7 fL (80.0-100.0); Nucleated Red Blood Cells % 0.3 %
--- NOTE | 2025-07-16 02:17 | DVH ---
CHEST RADIOGRAPH Indication: SOB Technique: Single frontal view of the chest was obtained COMPARISON: EKG on DOS: 08/03/22, CHEST PORTABLE on DOS: 03/16/21 FINDINGS: Lines and Tubes: None Lungs: Clear Pleura: No effusion. No pneumothorax. Cardiomediastinal contours: Cardiomegaly. Bones: Unremarkable IMPRESSION: 1. Cardiomegaly.
[2025-07-16 02:31] LABS: Anion Gap 14 (5-15); BUN/Creatinine Ratio 10.7 (10.0-20.0); Blood Urea Nitrogen 14 mg/dL (9-23); Carbon Dioxide 20 mmol/L (20-31); Chloride 105 mmol/L (98-107); Potassium 4.6 mmol/L (3.5-5.1); Sodium 139 mmol/L (136-145); Total Protein 6.5 g/dL (5.7-8.2)
[2025-07-16 02:32] LABS: Albumin 4.1 g/dL (3.2-4.8)
--- NOTE | 2025-07-16 02:46 | ECG ---
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
[2025-07-16 03:06] LABS: Alanine Aminotransferase 152 U/L (7-40); Alkaline Phosphatase 169 U/L (46-116); Bilirubin, Total 1.7 mg/dL (0.2-1.0); Calcium 8.6 mg/dL (8.7-10.4); Glucose 127 mg/dL (74-106)
[2025-07-16 03:23] LABS: Lactic Acid w/Reflex 3.1 mmol/L (0.4-2.0)
[2025-07-16] MEDS: SODIUM CHLORIDE 0.9% 1,000 ML IV ONE (03:29)
[2025-07-16] MEDS: ONDANSETRON HCL 4 MG/2 ML VIAL IV ONE (03:29)
[2025-07-16] MEDS: IOHEXOL 350 MG/ML 100ML IJ ONE (04:05)
[2025-07-16] MEDS: PIPERACILLIN-TAZOB 3.375GM 100 ML IV ONE ×2 (04:06→10:15)
--- NOTE | 2025-07-16 04:50 | ECG ---
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
--- NOTE | 2025-07-16 05:04 | DVH ---
CTA Chest with intravenous contrast INDICATION: SOB r/o PE. COMPARISON: XY CHEST PORTABLE on DOS: 07/16/25 TECHNIQUE: Multidetector spiral CTA of the chest was performed of the chest with 100 cc of Omnipaque 350 intravenous contrast. PULMONARY ANGIOGRAPHY PROTOCOL was utilized using a bolus-tracking techniqu e centered on the main pulmonary artery. Coronal and sagittal multiplanar and MIP reformats were perf ormed. Radiation Dose : 1. Chest: CTDI volume is 21.52 mGy. Dose-length product is 2.54 mGy*cm The dose indicators for CT are the volume Computed Tomography (CT) Dose Index (CTDIvol) and the Dose Length Product (DLP), and are measured in units of mGy and mGy-cm, respectively. These indicators are not patient dose, but values generated from the CT scanner acquisition factors. The report includes radiation exposure data for exposures received during this examination. FINDINGS: Pulmonary artery: No central or lobar pulmonary embolus. There is limited enhancement of the segme ntal branches of the pulmonary arteries which precludes assessment. Lower neck: Unremarkable thyroid. Lungs: Bilateral lower lobe atelectasis. Pleura: No pneumothorax. Moderate right and small left pleural effusion. Heart/Vascular Structures: The heart is enlarged. No pericardial effusion. Thoracic aorta is normal i n caliber. No aneurysm or dissection. Lymph Nodes: No mediastinal or hilar lymphadenopathy. Esophagus:Grossly unremarkable. Musculoskeletal: Unremarkable. Body wall: Unremarkable. Upper abdomen: Unremarkable. IMPRESSION: 1. No central or lobar pulmonary embolus. Limited evaluation of the segmental branches of the pulmon daniela arteries due to poor contrast opacification. 2. Moderate right and small left pleural effusion. 3. Bilateral lower lobe atelectasis. 4. Cardiomegaly.
[2025-07-16] MEDS ORDERED: NITROGLYCERIN 0.4 MG SL TAB SL PRN ×2 (08:30)
[2025-07-16] MEDS ORDERED: MORPHINE SULFATE INJ 2 MG/ml SYRG IV PRN (08:30)
--- NOTE | 2025-07-16 09:21 | DVHHP2 ---
History of Present Illness Reason for Visit: Chest pain with shortness of breath History of Present Illness John Guevara is a 25-year-old male with past medical history of SVTs and right 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 Patient reports that the pain is 10/10 sharp and constant. He states that there are no alleviating or triggering factors. Patient also reports that he drinks 2-3 shots of hard liquor per day. Patient reports that he does not take any medications at home. He also denies any family history of medical problems. Patient denies any recent trauma or injury, recent sick contacts, recent travels, recent ingestion of spoiled food, fever, chills, lightheadedness, weakness, dizziness, abdominal pain, nausea, vomiting, diarrhea, or urinary symptoms. Past Medical History SVTs Past Surgical History: Other (Right tib-fib surgery) Family History: None Smoke: No ALCOHOL: heavy Drugs: None Lives: with Family Domestic Violence: Neg Review of Systems Respiratory: Shortness of breath Cardiovascular: Chest Pain Allergies: Coded Allergies: NO KNOWN ALLERGIES (Unverified , 11/18/15) Medications Current Medications Medications Dose Ordered Sig/Chrystal Route Start Time Stop Time Status Last Admin Dose Admin Enoxaparin Sodium 80 mg Q12HR SC 07/16/25 10:00 UNV Furosemide 40 mg BIDD IV 07/16/25 18:00 UNV Exam Vital Signs Vital Signs Date Time Temp Pulse Resp B/P (MAP) Pulse Ox O2 Delivery O2 Flow Rate FiO2 07/16/25 08:51 126 07/16/25 08:51 97.5 18 110/90 (97) 100 97.5 General Appearance: Alert, Oriented X3, Cooperative, mild distress HEENT: Atraumatic, PERRLA, EOMI, Mucous membr. moist/pink Respiratory: Clear to auscultation, Normal air movement Cardiovascular: Normal S1, Normal S2, No murmurs Abdominal: Normal bowel sounds, Soft Extremities: Normal pulses Skin: No significant lesion Neuro: Normal gait, Normal speech, Strength at 5/5 X4 ext, Normal tone, Sensation intact Psych/Mental Status: Mental status NL, Mood NL Labs/Xrays Labs Test 07/16/25 04:44 07/16/25 01:46 Range/Units Lactic Acid Level 3.2 *H 0.4-2.0 mmol/L Troponin I High Sensitivity 41 </=54 ng/L White Blood Count 6.7 4.4-10.8 10^3/uL Red Blood Count 5.00 4.5-5.90 10^6/uL Hemoglobin 15.6 13.5-17.5 g/dL Hematocrit 46.3 41.0-53.0 % Mean Corpuscular Volume 92.7 80.0-100.0 fL Mean Corpuscular Hemoglobin 31.1 28.0-32.0 pg Mean Corpuscular Hemoglobin Concent 33.6 32.0-36.0 g/dL Red Cell Distribution Width 14.6 H 11.8-14.3 % Platelet Count 234 140-450 10^3/uL Mean Platelet Volume 8.6 6.9-10.8 fL Neutrophils (%) (Auto) 73.1 37.0-80.0 % Lymphocytes (%) (Auto) 20.4 10.0-50.0 % Monocytes (%) (Auto) 5.9 0.0-12.0 % Eosinophils (%) (Auto) 0.3 0.0-7.0 % Basophils (%) (Auto) 0.3 0.0-2.0 % Neutrophils # (Auto) 4.9 1.6-8.6 10 ^3/uL Lymphocytes # (Auto) 1.4 0.4-5.4 10 ^3/uL Monocytes # (Auto) 0.4 0-1.3 10 ^3/uL Eosinophils # (Auto) 0 0-0.8 10 ^3/uL Basophils # (Auto) 0 0-0.2 10 ^3/uL Nucleated Red Blood Cells 0.3 % D-Dimer, Quantitative 7.29 H 0.0-0.49 mg/L FEU Sodium Level 139 136-145 mmol/L Potassium Level 4.6 3.5-5.1 mmol/L Chloride Level 105 98-107 mmol/L Carbon Dioxide Level 20 20-31 mmol/L Anion Gap 14 5-15 Blood Urea Nitrogen 14 9-23 mg/dL Creatinine 1.31 H 0.700-1.30 mg/dL Glomerular Filtration Rate Calc 77 >90 mL/min BUN/Creatinine Ratio 10.7 10.0-20.0 Serum Glucose 127 H 74-106 mg/dL Calcium Level 8.6 L 8.7-10.4 mg/dL Total Bilirubin 1.7 H 0.2-1.0 mg/dL Aspartate Amino Transferase (AST) 215 H 13-40 U/L Alanine Aminotransferase (ALT) 152 H 7-40 U/L Alkaline Phosphatase 169 H 46-116 U/L B-Type Natriuretic Peptide 1066.13 0-100 pg/mL Total Protein 6.5 5.7-8.2 g/dL Albumin 4.1 3.2-4.8 g/dL CTA Chest with intravenous contrast INDICATION: SOB r/o PE. COMPARISON: XY CHEST PORTABLE on DOS: 07/16/25 TECHNIQUE: Multidetector spiral CTA of the chest was performed of the chest with 100 cc of Omnipaque 350 intravenous contrast. PULMONARY ANGIOGRAPHY PROTOCOL was utilized using a bolus-tracking technique centered on the main pulmonary artery. Coronal and sagittal multiplanar and MIP reformats were performed. Radiation Dose : 1. Chest: CTDI volume is 21.52 mGy. Dose-length product is 2.54 mGy*cm The dose indicators for CT are the volume Computed Tomography (CT) Dose Index (CTDIvol) and the Dose Length Product (DLP), and are measured in units of mGy and mGy-cm, respectively. These indicators are not patient dose, but values generated from the CT scanner acquisition factors. The report includes radiation exposure data for exposures received during this examination. FINDINGS: Pulmonary artery: No central or lobar pulmonary embolus. There is limited enhancement of the segmental branches of the pulmonary arteries which precludes assessment. Lower neck: Unremarkable thyroid. Lungs: Bilateral lower lobe atelectasis. Pleura: No pneumothorax. Moderate right and small left pleural effusion. Heart/Vascular Structures: The heart is enlarged. No pericardial effusion. Thoracic aorta is normal in caliber. No aneurysm or dissection. Lymph Nodes: No mediastinal or hilar lymphadenopathy. Esophagus:Grossly unremarkable. Musculoskeletal: Unremarkable. Body wall: Unremarkable. Upper abdomen: Unremarkable. IMPRESSION: 1. No central or lobar pulmonary embolus. Limited evaluation of the segmental branches of the pulmonary arteries due to poor contrast opacification. 2. Moderate right and small left pleural effusion. 3. Bilateral lower lobe atelectasis. 4. Cardiomegaly. CHEST RADIOGRAPH Indication: SOB Technique: Single frontal view of the chest was obtained COMPARISON: EKG on DOS: 08/03/22, CHEST PORTABLE on DOS: 03/16/21 FINDINGS: Lines and Tubes: None Lungs: Clear Pleura: No effusion. No pneumothorax. Cardiomediastinal contours: Cardiomegaly. Bones: Unremarkable IMPRESSION: 1. Cardiomegaly. SEPSIS Sepsis Screen Date sepsis recognized/suspect: Jul 16, 2025 Time Sepsis recognized/suspect: 0138 Recent Procedure: No On Antibiotic Therapy: No Respiratory Rate >20: No Heart Rate >90: No Temp<36 C (96.8 F) or >38.3 C: No SBP <90 or MAP <65 mmHG: No New Acute Mental Status Change: No Is the patient on CPAP, BIPAP,: No Physician Orders Chest Portable (07/16/25 01:47) Blood Culture (07/16/25 01:47) Covid19 Antigen Kait (07/16/25 ) Rapid Influenza A&B (07/16/25 01:47) Ct Angio Chest Contrast (07/16/25 03:43) Enoxaparin Sodium (Lovenox) (07/16/25 10:00) Furosemide Injection (Lasix Injection) (07/16/25 18:00) Admit (07/16/25 08:25) Code Status (07/16/25 08:25) Vital Signs .PER UNIT PROTOCOL (07/16/25 08:25) Grease Rack Worker (07/16/25 08:25) Aspirin Tablet (07/16/25 10:00) Lipitor 40mg Hs Hi-Intensity (07/16/25 22:00) Morphine Sulfate Injection (07/16/25 08:30) Acetaminophen Tablet (Tylenol Tablet) (07/16/25 08:30) Complete Blood Count (07/17/25 04:00) Basic Metabolic Panel (07/17/25 04:00) Magnesium (07/17/25 04:00) Lipid Panel (07/17/25 04:00) Echo 2d Mode Cardiac Dop (07/16/25 08:25) Nitroglycerin Sublingual (Ntrostat Subli (07/16/25 08:30) Ondansetron Hcl (Zofran) (07/16/25 08:30) Electrocardigram (07/17/25 04:00) Troponin-I Hs (07/17/25 04:00) Cardiac Rehabilitation - Outpa (07/16/25 ) Nitroglycerin Sublingual (Ntrostat Subli (07/16/25 08:30) Morphine Sulfate Injection (07/16/25 08:30) Stat Ekg For Chest Pain (07/16/25 08:25) Notify Of Changes From Base (07/16/25 08:25) Border Measurer And Cutter For 24 Hours (07/16/25 08:25) Emergency Dysrhythmia Protocol (07/16/25:25) Rhythm Strips Once Every Shift (07/16/25 08:25) Oxygen By Nasal Cannula (07/16/25:25) Urinalysis (07/16/25:) Drug Screen (07/16/25:25) Free T4 (Free Thyroxine) (07/16/25:) Thyroid Stimulating Hormone (07/16/25:25) Hemoglobin A1c (07/16/25:25) Vital Signs Date Time Temp Pulse Resp B/P (MAP) Pulse Ox O2 Delivery O2 Flow Rate FiO2 07/16/25 08:51 126 07/16/25 08:51 97.5 126 18 110/90 (97) 100 97.5 07/16/25 05:39 98.3 125 20 116/82 (93) 99 98.3 07/16/25 04:42 128 07/16/25 02:54 98.1 130 20 123/88 (100) 100 98.1 07/16/25 02:43 130 07/16/25 01:54 123 07/16/25 01:40 133 07/16/25 01:32 97.5 67 18 124/79 100 97.5 Laboratory Tests Test 07/16/25 01:46 07/16/25 02:26 07/16/25 04:44 White Blood Count 6.7 10^3/uL (4.4-10.8) Lactic Acid Level 3.1 mmol/L (0.4-2.0) *H 3.2 mmol/L (0.4-2.0) *H Medications Medications Dose Ordered Sig/Chrystal Route Start Time Stop Time Status Last Admin Dose Admin Ondansetron HCl 4 mg ONCE ONCE IV 07/16/25 02:00 07/16/25 02:01 DC 07/16/25 03:29 4 MG Piperacillin Sod/ Tazobactam Sod 100 ml @ 100 mls/hr ONCE ONCE IV 07/16/25 03:45 07/16/25 04:44 DC 07/16/25 04:06 100 MLS/HR Sodium Chloride 1,000 ml @ 1,000 mls/hr Q1H ONCE IV 07/16/25 02:00 07/16/25 02:59 DC 07/16/25 03:29 1,000 MLS/HR Assessment/Plan Assessment/Plan Assessment Chest pain with shortness of breath likely due to PE, possibly segmental Moderate right and small left pleural effusion Bilateral lower lobe atelectasis Cardiomegaly Alcohol use History of right tib-fib surgery due to crushed bones now has rods in them patient reports History of SVTs Plan Admit to tele Aspirin + statin IV antibiotics Zosyn given in ED NS 1 L given ED Chest x-ray CTA chest noted EKG Flu test COVID test D-dimer noted Blood cultures Lactic BNP Troponin noted negative x3 Diuretics ACS workup Echo ordered CIWA Multivitamins Thiamine Folic acid UA UDS Antiemetics Pain management No home medications taken per patient DVT prophylaxis-therapeutic Lovenox PUD prophylaxis-not indicated no history of GERD or GI bleed Discussed plan of care with patient and nurse Consider Cardiology consult Counseled patient on cessation of alcohol use [id number] Preventive counseling healthy eating habits, physical activity, and regular checkups Plan discussed with: Patient My Orders Orders - SEVERO CRUZ GLASS SCIENCE ENGINEER Procedure Category Date Status Time Enoxaparin Sodium PHA 07/16/25 Logged (Lovenox) 10:00 Furosemide Injection PHA 07/16/25 Logged (Lasix Injection) 18:00 Admit ADMIT 07/16/25 Transmitted 08:25 Code Status CODE 07/16/25 Transmitted 08:25 Vital Signs MONICO 07/16/25 Transmitted 08:25 Grease Rack Worker MONICO 07/16/25 Transmitted 08:25 Aspirin Tablet PHA 07/16/25 Transmitted 10:00 Lipitor 40mg Hs PHA 07/16/25 Transmitted Hi-Intensity 22:00 Morphine Sulfate PHA 07/16/25 Transmitted Injection 08:30 Acetaminophen Tablet PHA 07/16/25 Transmitted (Tylenol Tablet) 08:30 Complete Blood Count LAB 07/17/25 Verified 04:00 Basic Metabolic Panel LAB 07/17/25 Verified 04:00 Magnesium LAB 07/17/25 Verified 04:00 Lipid Panel LAB 07/17/25 Verified 04:00 Echo 2d Mode Cardiac US 07/16/25 Transmitted DOP 08:25 Nitroglycerin PHA 07/16/25 Transmitted Sublingual (Ntrostat 08:30 Ondansetron Hcl PHA 07/16/25 Transmitted (Zofran) 08:30 Electrocardigram EKG 07/17/25 Transmitted 04:00 Troponin-I Hs LAB 07/17/25 Verified 04:00 Cardiac MONICO 07/16/25 Transmitted Rehabilitation - Outpa Nitroglycerin PHA 07/16/25 Transmitted Sublingual (Ntrostat 08:30 Morphine Sulfate PHA 07/16/25 Transmitted Injection 08:30 Stat Ekg For Chest MONICO 07/16/25 Transmitted Pain 08:25 Notify Of Changes MONICO 07/16/25 Transmitted From Base 08:25 Border Measurer And Cutter For MONICO 07/16/25 Transmitted 24 Hours 08:25 Emergency Dysrhythmia MONICO 07/16/25 Transmitted Protocol 08:25 Rhythm Strips Once MONICO 07/16/25 Transmitted Every Shift 08:25 Oxygen By Nasal RT 07/16/25 Transmitted Cannula 08:25 Urinalysis LAB 07/16/25 Verified 08:25 Drug Screen LAB 07/16/25 Verified 08:25 Free T4 (Free LAB 07/16/25 Verified Thyroxine) 08:25 Thyroid Stimulating LAB 07/16/25 Verified Hormone 08:25 Hemoglobin A1c LAB 07/16/25 Verified 08:25 Date of Service: Jul 16, 2025 Billing Provider: SEVERO CRUZ Common Visit Codes: [id number] INP/OBS CARE (HIGH) Secondary Visit Codes: [id number] COUNSELING IND SEVERO CRUZ Jul 16, 2025 09:21
[2025-07-16] MEDS: ONDANSETRON HCL 4 MG/2 ML VIAL ONE (09:40)
[2025-07-16] MEDS: ONDANSETRON HCL 4 MG/2 ML VIAL IV PRN (09:40)
[2025-07-16] MEDS: MULTIPLE VITAMIN TAB PO SCH (10:00)
[2025-07-16 12:16] LABS: COVID19 ANTIGEN SOFIA FIA NEGATIVE (NEGATIVE)
[2025-07-16] MEDS: FOLIC ACID 1 MG TAB PO SCH (12:46)
[2025-07-16] MEDS: ENOXAPARIN SOD 80 MG/0.8ML SYRINGE SC SCH (12:46)
[2025-07-16] MEDS: THIAMINE HCL 100 MG TAB PO SCH (12:58)
[2025-07-16 13:34] VITALS: PULSE 124; RESP 14; O2SAT 98
[2025-07-16] MEDS ORDERED: IPRATROPIUM BROM 0.5 MG/2.5ML INH SOL NEB PRN (13:45)
[2025-07-16] MEDS ORDERED: ALBUTEROL SULF 2.5 MG/0.5ML(0.5%) NEB SOLN NEB PRN (13:45)
[2025-07-16] MEDS: ACETAMINOPHEN 325 MG TAB PO PRN (13:52)
[2025-07-16] MEDS: PIPERACILLIN-TAZOB 3.375GM 100 ML IV SCH (14:00)
[2025-07-16 14:49] VITALS: BP 119/90; PULSE 126; RESP 20; TEMP 97.5; O2SAT 97
[2025-07-16 15:27] LABS: Magnesium 1.8 mg/dL (1.6-2.6); Triglycerides 87 mg/dL (< 150)
[2025-07-16 15:29] LABS: Cholesterol 102 mg/dL (< 200)
[2025-07-16 15:31] LABS: HDL Cholesterol 22 mg/dL (40-59)
[2025-07-16] MEDS: MORPHINE SULFATE 4 MG/ML SYR/VIAL IV PRN (15:55)
--- NOTE | 2025-07-16 16:04 | DVHINCON2 ---
Date Seen: Jul 16, 2025 Referring Physician HAIM Null Reason for Consultation CHF History of Present Illness This is a 25-year-old male patient who presents to emergency room with chief complaint of chest pain, shortness of breath, nausea and vomiting for two weeks. The patient reports he has been experiencing symptoms such as chest pain and shortness of breath for approximately two weeks. He also describes nausea and vomiting episodes after every meal. He describes the chest pain as constant, sharp in nature, left-sided and nonradiating. He reports that the pain is worse when lying down and feels better when he sits up. Initial troponin level of 45ng/L with flat trend thereafter. Initial twelve lead electrocardiogram reveals sinus tachycardia with nonspecific ST segment changes to lateral leads. Significant past medical history includes supraventricular tachycardia, epiglottitis, and alcohol abuse. The patient admits he drinks a fifth of Vodka per day. He denies taking any prescribed medications and does not follow up with a dispatcher street department in the outpatient setting. Past Medical History Past medical history reviewed. No other significant than mentioned above. Past Surgical History Tibia and fibula repair Family History: Diabetes mellitus G8 FATHER Family History Family history reviewed. Social History Patient admits to drinking a fifth of vodka per day. States that his last drink was one month ago. The patient admits to vaping nicotine daily Denies illicit drug use. Toxicology screen positive for amphetamines Allergies: Coded Allergies: NO KNOWN ALLERGIES (Unverified , 11/18/15) Home Meds No Active Prescriptions or Reported Meds Home Meds Denies taking any prescribed medications Current Medications Current Medications Medications (Trade) Dose Ordered Sig/Chrystal Route PRN Reason Start Time Stop Time Status Last Admin Enoxaparin Sodium (Lovenox) 80 mg Q12HR SC 07/16/25 10:07/16/25 12:46 Furosemide (Lasix Injection) 40 mg BIDD IV 07/16/25 18:00 Aspirin 81 mg DAILY PO 07/16/25 10:07/16/25 10:00 Atorvastatin Calcium (Lipitor) 40 mg HS PO 07/16/25 22:00 Morphine Sulfate 2 mg Q30MP PRN IV FOR CHEST PAIN 07/16/25 08:30 Acetaminophen (Tylenol Tablet) 650 mg Q6HP PRN PO MILD PAIN (1-3 PAIN SCALE) 07/16/25 08:30 07/16/25 13:52 Nitroglycerin (Ntrostat Sublingual) 0.4 mg Q5MINP PRN SL FOR CHEST PAIN 07/16/25 08:30 07/16/25 09:48 DC Ondansetron HCl (Zofran) 4 mg Q4HP PRN IV NAUSEA / VOMITING 07/16/25 08:30 07/16/25 09:40 Nitroglycerin (Ntrostat Sublingual) 0.4 mg Q5MINP PRN SL FOR CHEST PAIN 07/16/25 08:30 Morphine Sulfate 2 mg Q30M PRN IV FOR CHEST PAIN 07/16/25 08:30 07/16/25 09:48 DC Thiamine HCl 100 mg DAILY PO 07/16/25 10:00 07/16/25 12:58 Folic Acid 1 mg DAILY PO 07/16/25 10:00 07/16/25 12:46 Multivitamins (Mvi Tab) 1 tab DAILY PO 07/16/25 10:00 07/16/25 10:00 Piperacillin Sod/ Tazobactam Sod 100 ml @ 25 mls/hr Q8HR IV 07/16/25 14:00 Oseltamivir Phosphate (Tamiflu 75MG Capsule) 75 mg Q12HR PO 07/16/25 22:00 07/21/25 21:59 Albuterol (Ventolin Medneb) 2.5 mg Q4HPRN PRN NEB SHORTNESS OF BREATH 07/16/25 13:45 Ipratropium Fortuna (Atrovent Medneb) 0.5 mg Q4HPRN PRN NEB SHORTNESS OF BREATH 07/16/25 13:45 Review of Systems Constitutional: No symptom reported Ears, Nose, & Throat: No symptom reported Eyes: No symptom reported Neurological: No symptoms reported Pulmonary/Respiratory: Shortness of breath Cardiovascular: Chest pain Gastrointestinal: Nausea and vomiting Genitourinary: No symptom reported Musculoskeletal: No symptom reported Skin: No symptom reported Psychiatric: No symptom reported Endocrine: No symptom reported Hematologic/Lymphatic: No symptom reported Vital Signs Vital Signs Date Time Temp Pulse Resp B/P (MAP) Pulse Ox O2 Delivery O2 Flow Rate FiO2 07/16/25 14:49 97.5 126 20 119/90 97 0.0 21 97.5 Physical Exam General Appearance: Cooperative. Restless, anxious Pulmonary/Respiratory: Clear, bilateral breaths sounds. Cardiovascular/Chest: Regular rate and rhythm. Peripheral Pulses: 2+ Radial (R). 2+ Radial (L). 2+ Pedal (R). 2+ Pedal (L) Abdominal Exam: Normal bowel sounds. Ankle Exam: Nonpitting bilateral ankle edema Lower extremities: Negative lower extremity edema Neuro/Mental Status: A/OX4, coherent. Thoughts/Psych: Normal thought pattern. Appropriate mood and affect. Good judgment and insight. Appearance: No acute distress. Skin Exam: Normal inspection. Normal color. Warm and dry. Labs/Diagnostic Data Labs Test 07/16/25 09:30 07/16/25 09:19 07/16/25 04:44 07/16/25 04:16 Range/Units Influenza Type A Antigen Negative Negative Influenza Type B Antigen Positive Negative SARS-CoV-2 Antigen (Rapid) Negative NEGATIVE Hemoglobin A1c 5.8 H <5.7 % A1C Thyroid Stimulating Hormone (TSH) 4.87 H 0.55-4.78 uIU/mL Free Thyroxine (T4) Calculated 1.47 0.89-1.76 ng/dL Lactic Acid Level 3.2 *H 0.4-2.0 mmol/L Troponin I High Sensitivity 41 </=54 ng/L Magnesium Level 1.8 1.6-2.6 mg/dL Triglycerides Level 87 < 150 mg/dL Cholesterol Level 102 < 200 mg/dL LDL Cholesterol 71 < 100 mg/dL HDL Cholesterol 22 L 40-59 mg/dL Plasma/Serum Blood Alcohol < 3.0 <10 mg/dL Test 07/16/25 01:46 Range/Units White Blood Count 6.7 4.4-10.8 10^3/uL Red Blood Count 5.00 4.5-5.90 10^6/uL Hemoglobin 15.6 13.5-17.5 g/dL Hematocrit 46.3 41.0-53.0 % Mean Corpuscular Volume 92.7 80.0-100.0 fL Mean Corpuscular Hemoglobin 31.1 28.0-32.0 pg Mean Corpuscular Hemoglobin Concent 33.6 32.0-36.0 g/dL Red Cell Distribution Width 14.6 H 11.8-14.3 % Platelet Count 234 140-450 10^3/uL Mean Platelet Volume 8.6 6.9-10.8 fL Neutrophils (%) (Auto) 73.1 37.0-80.0 % Lymphocytes (%) (Auto) 20.4 10.0-50.0 % Monocytes (%) (Auto) 5.9 0.0-12.0 % Eosinophils (%) (Auto) 0.3 0.0-7.0 % Basophils (%) (Auto) 0.3 0.0-2.0 % Neutrophils # (Auto) 4.9 1.6-8.6 10 ^3/uL Lymphocytes # (Auto) 1.4 0.4-5.4 10 ^3/uL Monocytes # (Auto) 0.4 0-1.3 10 ^3/uL Eosinophils # (Auto) 0 0-0.8 10 ^3/uL Basophils # (Auto) 0 0-0.2 10 ^3/uL Nucleated Red Blood Cells 0.3 % D-Dimer, Quantitative 7.29 H 0.0-0.49 mg/L FEU Sodium Level 139 136-145 mmol/L Potassium Level 4.6 3.5-5.1 mmol/L Chloride Level 105 98-107 mmol/L Carbon Dioxide Level 20 20-31 mmol/L Anion Gap 14 5-15 Blood Urea Nitrogen 14 9-23 mg/dL Creatinine 1.31 H 0.700-1.30 mg/dL Glomerular Filtration Rate Calc 77 >90 mL/min BUN/Creatinine Ratio 10.7 10.0-20.0 Serum Glucose 127 H 74-106 mg/dL Calcium Level 8.6 L 8.7-10.4 mg/dL Total Bilirubin 1.7 H 0.2-1.0 mg/dL Aspartate Amino Transferase (AST) 215 H 13-40 U/L Alanine Aminotransferase (ALT) 152 H 7-40 U/L Alkaline Phosphatase 169 H 46-116 U/L B-Type Natriuretic Peptide 1066.13 0-100 pg/mL Total Protein 6.5 5.7-8.2 g/dL Albumin 4.1 3.2-4.8 g/dL Assessment De Dottie HFrEF, NYHA class III ?Alcohol-induced cardiomyopathy Rule out apical thrombus Influenza B positive Pneumonia Moderate right sided pleural effusion Transaminitis Prediabetes Alcohol abuse Acute amphetamine intoxication Plan/Recommendation We will continue with the following plan/recommendations (Dr. Sullivan): Case discussed with . Preliminary echocardiogram reveals an EF of approximately 10%. Initiate guideline directed medical therapy for CHF as tolerated. We will start MRA (spironolactone) with stable potassium level. Transition metoprolol tartrate to metoprolol succinate with stable blood pressures. Preload and afterload reduction. Possible apical thrombus seen on transthoracic echocardiogram. Initiate therapeutic Lovenox in the meantime. Given patients history of severe alcohol abuse (drinks one fifth of vodka per day), CIWA score of 13 points, initiate Librium and Ativan therapy as needed. Upgrade to LUIS for possible risk of cardiogenic shock and/or delirium tremens. Given patient's severely reduced ejection fraction and end-stage heart failure, we will recommend to transfer the patient to higher level of care for possible heart transplant evaluation. In the meantime, continue with close cardiac surveillance. Thank you for allowing us to care for this patient. Please call with any questions or concerns. Critical care time spent: 44 minutes This medical document was created using an electronic medical record system with voice recognition software and computerized dictation system. Although this document has been carefully reviewed, there might still be some phonetic and typographical errors. Occasional wrong-word or ``sound-alike substitutions ma y have occurred due to the inherent limitations of voice recognition software. These areas are purely typographical due to imperfections of the software programs and do not reflect any compromise in the patient's medical care. Please read the chart carefully and recognize, using context, where these substitutions have occurred. Plan discussed with: Patient NYHA Physical activity limitations: Class3(Marked) ordinary (activity causes symtoms) Date of Service: Jul 16, 2025 Billing Provider: ZELALEM LUONG Cardiology Common Codes: [id number] INP/OBS CARE (High) Cardiology Consultation Codes: [id number] CONSULT <45MIN ZELALEM LUONG Jul 16, 2025 16:04
--- NOTE | 2025-07-16 18:01 | DVH ---
BILATERAL upper extremities. Date: 07/16/2025 04:25 PM Clinical History: Cyanotic DANIEL hands Comparison: None Technique: Duplex Doppler evaluation including color Doppler and spectral/pulsed waveform analysis of the upper extremity arteries was performed. Finding: RIGHT: Peak systolic velocities are as follows: Subclavian: 71 cm per sec triphasic waveform Axillary artery: 25 cm/sec, triphasic waveform Proximal Brachial artery: 52 cm/sec, triphasic waveform Mid brachial artery: 51 cm/s Distal brachial artery: 49 cm/sec Radial artery: 31 cm/sec, triphasic waveform Ulnar artery: 16 cm/sec, triphasic waveform The waveforms are triphasic waveform throughout LEFT: Peak systolic velocities are as follows: Subclavian artery: 57 cm/sec, triphasic waveform Axillary artery: 29 cm/sec, triphasic waveform Proximal Brachial artery: 54 cm/sec, triphasic waveform Mid brachial artery: 54 cm/sec triphasic waveform. Distal brachial artery: 47 cm/sec, triphasic waveform Radial artery: 20 m/sec, triphasic waveform Ulnar artery: 36 m/sec, triphasic waveform The waveforms are triphasic waveform throughout IMPRESSION: 1. Decreased right ulnar flow 16 cm/sec compared to the left which is 36 cm/sec. 2. Normal left arterial flow. HS:Y
[2025-07-16] MEDS: FUROSEMIDE 40 MG/4 ML VIAL IV SCH (18:41)
[2025-07-16 19:54] VITALS: PULSE 111; RESP 20; O2SAT 96
[2025-07-16 20:00] VITALS: O2SAT 100
[2025-07-16 21:03] LABS: Opiate Scree,Urine Neg (NEGATIVE)
[2025-07-16 21:04] LABS: Phencyclidine Screen, Urine Neg (NEGATIVE)
[2025-07-16] MEDS: METOPROLOL TARTRATE 25 MG TAB PO SCH (21:25)
[2025-07-16 21:27] LABS: Urine Budding Yeast OCCASIONAL /hpf (None Seen); Urine Protein, UAD 1+ (Negative)
[2025-07-16 21:28] LABS: Amphetamine Screen, Urine Pos (NEGATIVE); Barbiturate Scree,Urine Neg (NEGATIVE); Benzodiazephine Screen, Urine Neg (NEGATIVE); Cannabinoid Screen, Urine Neg (NEGATIVE); Cocaine Screen, Urine Neg (NEGATIVE)
[2025-07-16] MEDS: SACUBITRIL-VALSARTAN 24mg/26mg TAB PO SCH (21:34)
[2025-07-16] MEDS: ATORVASTATIN 20 MG TAB PO SCH (21:35)
[2025-07-16] MEDS: OSELTAMIVIR 75 MG CAP PO SCH (21:35)
[2025-07-17] VITALS (25 sets, daily range): BP systolic 84–103; BP diastolic 48–65; PULSE 90–110; RESP 15–25; TEMP 99.7–101.1; O2SAT 89–100
[2025-07-17] MEDS: ALBUMIN 5% 250 ML IV ONE (01:30)
[2025-07-17 03:47] LABS: Hematocrit 43.0 % (41.0-53.0); Hemoglobin 14.4 g/dL (13.5-17.5); Mean Corpuscular Hemoglobin 31.1 pg (28.0-32.0); Mean Corpuscular Volume 93.2 fL (80.0-100.0); Nucleated Red Blood Cells % 0.2 %
[2025-07-17 03:51] LABS: Chloride 101 mmol/L (98-107); Potassium 4.7 mmol/L (3.5-5.1)
[2025-07-17 03:52] LABS: Anion Gap 12 (5-15); Carbon Dioxide 23 mmol/L (20-31)
[2025-07-17 03:57] LABS: BUN/Creatinine Ratio 12.8 (10.0-20.0); Blood Urea Nitrogen 23 mg/dL (9-23); Calcium 7.8 mg/dL (8.7-10.4); Sodium 136 mmol/L (136-145); Triglycerides 46 mg/dL (< 150)
[2025-07-17 03:58] LABS: Glucose 112 mg/dL (74-106); Magnesium 1.8 mg/dL (1.6-2.6)
[2025-07-17 03:59] LABS: Cholesterol 69 mg/dL (< 200)
[2025-07-17 04:00] LABS: HDL Cholesterol 15 mg/dL (40-59)
[2025-07-17] MEDS: FUROSEMIDE 40 MG/4 ML VIAL IV ONE (08:26)
[2025-07-17] MEDS: EMPAGLIFLOZIN 10 MG TAB PO SCH (10:00)
[2025-07-17 14:05] LABS: Base Excess -6.9 mmol/L (-2.0-3.0)
--- NOTE | 2025-07-17 15:07 | DVH ---
Bilateral Chest Sonogram Date: 07/17/2025 02:42 PM Clinical history: bilateral effusion Findings: Limited sonographic evaluation of the right and left chest was performed to localize and jesus fluid f or thoracentesis. Moderate right pleural effusion. Small left pleural effusion IMPRESSION: Moderate right pleural effusion. Small left pleural effusion
--- NOTE | 2025-07-17 15:11 | DVH ---
CHEST RADIOGRAPH Indication: chf Technique: Single frontal view of the chest was obtained Comparison: XY CHEST PORTABLE on DOS: 07/16/25, EKG on DOS: 08/03/22, CHEST PORTABLE on DOS: 03/16/21 FINDINGS: Lines and Tubes: None Lungs: Bibasilar airspace disease and small pleural effusions. Pleura: No effusion. No pneumothorax. Cardiomediastinal contours: Cardiomegaly Bones: No acute osseous abnormality. IMPRESSION: 1. Findings may represent pneumonia. 2. Possibility of congestive failure is also in the differential although unlikely in a person of the age of 25. HS:Y
--- NOTE | 2025-07-17 15:27 | DVHPN2 ---
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 Borderline low blood pressures at time of assessment (SBP 90's) Objective vital signs Vital Sign Date Time Temp Pulse Resp B/P (MAP) Pulse Ox O2 Delivery O2 Flow Rate FiO2 07/17/25 12:00 98.0 109 21 97/64 (75) 95 98.0 07/17/25 07:46 Nasal Cannula* 4 36 Total Intake and Output 07/16/25 07/16/25 07/17/25 15:00 23:00 07:00 Intake Total 25 ml 350 ml Output Total 400 ml 1200 ml Balance -375 ml -850 ml medications Current Medications Medications Dose Ordered Sig/Chrystal Route Start Time Stop Time Status Last Admin Dose Admin Enoxaparin Sodium 80 mg Q12HR SC 07/16/25 10:00 07/17/25 10:25 80 MG Furosemide 40 mg BIDD IV 07/16/25 18:00 07/16/25 18:41 40 MG Aspirin 81 mg DAILY PO 07/16/25 10:00 07/17/25 10:27 81 MG Atorvastatin Calcium 40 mg HS PO 07/16/25 22:00 07/16/25 21:35 40 MG Morphine Sulfate 2 mg Q30MP PRN IV 07/16/25 08:30 07/16/25 19:55 2 MG Acetaminophen 650 mg Q6HP PRN PO 07/16/25 08:30 07/16/25 13:52 650 MG Ondansetron HCl 4 mg Q4HP PRN IV 07/16/25 08:30 07/16/25 15:55 4 MG Nitroglycerin 0.4 mg Q5MINP PRN SL 07/16/25 08:30 Thiamine HCl 100 mg DAILY PO 07/16/25 10:00 07/17/25 10:27 100 MG Folic Acid 1 mg DAILY PO 07/16/25 10:00 07/17/25 10:25 1 MG Multivitamins 1 tab DAILY PO 07/16/25 10:00 07/17/25 10:26 1 TAB Oseltamivir Phosphate 75 mg Q12HR PO 07/16/25 22:00 07/21/25 21:59 07/17/25 10:25 75 MG Albuterol 2.5 mg Q4HPRN PRN NEB 07/16/25 13:45 Ipratropium [place] 0.5 mg Q4HPRN PRN NEB 07/16/25 13:45 Chlordiazepoxide HCl 25 mg Q6HR PO 07/16/25 18:00 07/17/25 12:11 25 MG Lorazepam 1 mg Q6HP PRN IV 07/16/25 17:00 Metoprolol Tartrate 12.5 mg BID PO 07/16/25 22:00 07/17/25 10:26 12.5 MG Empaglifozin 10 mg DAILY PO 07/17/25 10:00 07/17/25 10:31 10 MG Examination: GENERAL:Abnormal (Generalized weakness), LUNGS:Abnormal (Diminished bases, now on simple mask), CVS:Normal, NEURO:Normal laboratory and microbiology Laboratory Tests 07/17/25 03:26 Test 07/17/25 03:26 Range/Units Serum Glucose 112 H 74-106 mg/dL Problem List/Assessment/Plan Problem List/Assessment/Plan De Dottie HFrEF, NYHA class III ?Alcohol/Drug-induced cardiomyopathy Rule out apical thrombus Influenza B positive Pneumonia Moderate right sided pleural effusion Transaminitis Prediabetes Alcohol abuse Acute amphetamine intoxication Plan/Recommendations (Dr. Sullivan): Case discussed with . Preliminary echocardiogram reveals an EF of approximately 10%. Initiate guideline directed medical therapy for CHF as tolerated by blood pressure. We will start MRA (spironolactone) with stable potassium level. Transition metoprolol tartrate to metoprolol succinate with stable blood pressures. Preload and afterload reduction. Possible apical thrombus seen on transthoracic echocardiogram. Continue therapeutic Lovenox in the meantime. Given patients history of severe alcohol abuse (drinks one fifth of vodka per day), CIWA score of 13 points, initiate Librium and Ativan therapy as needed. Keep LUIS for possible risk of cardiogenic shock and/or delirium tremens. The patient toxicology also notable for amphetamines. Long discussion had with the patient regarding cessation of drugs and alcohol. Given patient's severely reduced ejection fraction and end-stage heart failure, we will recommend to transfer the patient to higher level of care for possible heart transplant evaluation. Patient has been accepted to [facility], pending authorization from insurance. In the meantime, continue with close cardiac surveillance. Thank you for allowing us to care for this patient. Please call with any questions or concerns. This medical document was created using an electronic medical record system with voice recognition software and computerized dictation system. Although this document has been carefully reviewed, there might still be some phonetic and typographical errors. Occasional wrong-word or ``sound-alike substitutions may have occurred due to the inherent limitations of voice recognition software. These areas are purely typographical due to imperfections of the software programs and do not reflect any compromise in the patient's medical care. Please read the chart carefully and recognize, using context, where these substitutions have occurred. Plan discussed with: Patient Date of Service: Jul 17, 2025 Billing Provider: ZELALEM LUONG Common Visit Codes: [id number] CARE 30-74 MIN ZELALEM LUONG Jul 17, 2025 15:27
[2025-07-17] MEDS: LORazepam 2MG/ML-1ML VIAL IV PRN (16:05)
--- NOTE | 2025-07-17 16:45 | DVHDS2 ---
Discharge Summary Date of Admission Jul 16, 2025 at 08:25 Date of Discharge: Jul 17, 2025 Admitting Diagnosis Rule out PE Labs/Diagnostic Data: Laboratory Results Test 07/17/25 11:21 07/17/25 10:29 07/17/25 03:26 07/16/25 20:44 Blood Gas Specimen Type Arterial Blood Gas Sample Site Right radial Blood Gas Patient Temperature 37.0 Arterial Blood Date Drawn [id number] Arterial Blood pH 7.404 (7.350-7.450) Arterial Blood Partial Pressure CO2 25.7 mmHg (35.0-48.0) Arterial Blood Partial Pressure O2 108.4 mmHg (83.0-108.0) Arterial Blood HCO3 15.7 mmol/L (21.0-28.0) Arterial Blood Oxygen Saturation 97.8 % (94.0-98.0) Arterial Blood Base Excess -6.9 mmol/L (-2.0-3.0) Arterial Blood Oxyhemoglobin 96.3 % (94.0-98.0) Arterial Blood Carboxyhemoglobin 0.8 % (0.5-1.5) Arterial Blood Methemoglobin 0.7 % (0.0-1.5) Alfredo Test Yes Blood Gas Total Hemoglobin 16.10 g/dL (13.5-17.5) Blood Gas Liter Flow 5.00 Blood Gas Modality Nasal cannula FiO2 % 36.0 POC Glucose 116 mg/dl (70-106) White Blood Count 9.9 10^3/uL (4.4-10.8) Red Blood Count 4.62 10^6/uL (4.5-5.90) Hemoglobin 14.4 g/dL (13.5-17.5) Hematocrit 43.0 % (41.0-53.0) Mean Corpuscular Volume 93.2 fL (80.0-100.0) Mean Corpuscular Hemoglobin 31.1 pg (28.0-32.0) Mean Corpuscular Hemoglobin Concent 33.3 g/dL (32.0-36.0) Red Cell Distribution Width 14.1 % (11.8-14.3) Platelet Count 145 10^3/uL (140-450) Mean Platelet Volume 9.4 fL (6.9-10.8) Neutrophils (%) (Auto) 79.6 % (37.0-80.0) Lymphocytes (%) (Auto) 13.4 % (10.0-50.0) Monocytes (%) (Auto) 6.7 % (0.0-12.0) Eosinophils (%) (Auto) 0.1 % (0.0-7.0) Basophils (%) (Auto) 0.2 % (0.0-2.0) Neutrophils # (Auto) 7.9 10 ^3/uL (1.6-8.6) Lymphocytes # (Auto) 1.3 10 ^3/uL (0.4-5.4) Monocytes # (Auto) 0.7 10 ^3/uL (0-1.3) Eosinophils # (Auto) 0 10 ^3/uL (0-0.8) Basophils # (Auto) 0 10 ^3/uL (0-0.2) Nucleated Red Blood Cells 0.2 % Sodium Level 136 mmol/L (136-145) Potassium Level 4.7 mmol/L (3.5-5.1) Chloride Level 101 mmol/L (98-107) Carbon Dioxide Level 23 mmol/L (20-31) Anion Gap 12 (5-15) Blood Urea Nitrogen 23 mg/dL (9-23) Creatinine 1.80 mg/dL (0.700-1.30) Glomerular Filtration Rate Calc 52 mL/min (>90) BUN/Creatinine Ratio 12.8 (10.0-20.0) Serum Glucose 112 mg/dL (74-106) Calcium Level 7.8 mg/dL (8.7-10.4) Magnesium Level 1.8 mg/dL (1.6-2.6) Troponin I High Sensitivity 52 ng/L (</=54) Triglycerides Level 46 mg/dL (< 150) Cholesterol Level 69 mg/dL (< 200) LDL Cholesterol 49 mg/dL (< 100) HDL Cholesterol 15 mg/dL (40-59) Urine Color Yellow (Yellow) Urine Clarity Clear (Clear) Urine pH 5.5 (5.0-9.0) Urine Specific [place] > 1.050 (1.001-1.035) Urine Protein 1+ (Negative) Urine Ketones Trace (Negative) Urine Blood Trace /uL (Negative) Urine Nitrite Negative (Negative) Urine Bilirubin Negative (Negative) Urine Urobilinogen Normal mg/dL (Negative) Urine Leukocyte Esterase Negative /uL (Negative) Urine RBC 2 /hpf (0 - 3) Urine Microscopic WBC 4 /HPF (0-3) Urine Squamous Epithelial Cells Few /hpf (<5) Urine Bacteria Few /hpf (None Seen) Urine Yeast (Budding) Occasional /hpf (None Urine Glucose Normal mg/dL (Normal) Urine Opiates Screen Neg (NEGATIVE) Urine Fentanyl Screen Neg (NEGATIVE) Urine Barbiturates Screen Neg (NEGATIVE) Urine Phencyclidine Screen Neg (NEGATIVE) Urine Amphetamines Screen Pos (NEGATIVE) Urine Benzodiazepines Screen Neg (NEGATIVE) Urine Cocaine Screen Neg (NEGATIVE) Urine Cannabinoids Screen Neg (NEGATIVE) Test 07/16/25 09:30 07/16/25 09:19 07/16/25 04:44 07/16/25 04:16 Influenza Type A Antigen Negative (Negative) Influenza Type B Antigen Positive (Negative) SARS-CoV-2 Antigen (Rapid) Negative (NEGATIVE) Erythrocyte Sedimentation Rate 2 mm/hr (0-20) Hemoglobin A1c 5.8 % A1C (<5.7) C-Reactive Protein High Sensitivity 2.43 mg/dL (<1.0) Thyroid Stimulating Hormone (TSH) 4.87 uIU/mL (0.55-4.78) Free Thyroxine (T4) Calculated 1.47 ng/dL (0.89-1.76) Lactic Acid Level 3.2 mmol/L (0.4-2.0) Plasma/Serum Blood Alcohol < 3.0 mg/dL (<10) Test 07/16/25 01:46 D-Dimer, Quantitative 7.29 mg/L FEU (0.0-0.49) Total Bilirubin 1.7 mg/dL (0.2-1.0) Aspartate Amino Transferase (AST) 215 U/L (13-40) Alanine Aminotransferase (ALT) 152 U/L (7-40) Alkaline Phosphatase 169 U/L (46-116) B-Type Natriuretic Peptide 1066.13 pg/mL (0-100) Total Protein 6.5 g/dL (5.7-8.2) Albumin 4.1 g/dL (3.2-4.8) Other Laboratory Tests 07/17/25 03:26 Brief Hx & Hospital Course: History of Present Illness John Guevara is a 25-year-old male with past medical history of SVTs and right 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 Patient reports that the pain is 10/10 sharp and constant. He states that there are no alleviating or triggering factors. Patient also reports that he drinks 2-3 shots of hard liquor per day. Patient reports that he does not take any medications at home. He also denies any family history of medical problems. Course of hospitalization: Patient had echocardiogram which revealed ejection fraction less than 10% as well as apical thrombus. Patient had CT angiogram of the chest which did rule out pulmonary embolism. Patient was found to have influenza B, for which the patient has been placed on Tamiflu. Cardiology consultation was obtained. Patient was found to be severe tachycardia, for which guideline directed medical therapy was initiated with beta-bonilla therapy, Frederick, GLP 1, as well as given the patient IV diuresis. Patient's pulmonary status has slightly improved. Patient continues to be somewhat lethargic. Patient was found to be positive for amphetamines, with the patient also having positive ETOH use. Recommendations by Cardiology were to have patient transferred to higher level of care for possible transplant evaluation versus implantable LVAD device. Patient will be continued on anticoagulation for thrombus. Patient will also have radiology consultation for possible right thoracentesis for noted moderate effusion on ultrasound. Plan of care has been discussed with the patient's family. At this time he is pending transfer to higher level of care. Current medical modalities to be continued at this time. Physical examination General: Alert and Oriented x3. No acute distress. Well-nourished. Eyes: EOMI. Anicteric. HENT: Moist mucous membranes. Lungs: Clear to auscultation bilaterally. No accessory muscle use. Cardiovascular: Regular rate and rhythm. No murmur. No JVD. Abdomen: Soft, non-tender and non-distended. No palpable masses. Extremities: No edema. Non-tender. Skin: No rashes or lesions. Warm. Neurologic: No focal neurological deficits. CN II-XII grossly intact, but not individually tested. Psychiatric: Cooperative. Appropriate mood and affect. Total time spent with patient discussing and formulating plan of care: 35 minutes. This medical document was created using an electronic medical record system with [employer] dictation system. Although this document has been carefully reviewed, there may still be some phonetic and typographical errors. These areas are purely typographical due to imperfections of the software programs, and do not reflect any compromise in the patient's medical care. Condition at Discharge: Poor Final Diagnosis/Problems List Acute Decompensated systolic heart failure Secondary diagnosis: Pulmonary embolism ruled out Amphetamine use Apical thrombus ETOH use Acute hypoxic respiratory failure Influenza B Bilateral pleural effusions Discharge Disposition: Home Discharge Instruct/Medications Diet: Cardiac 2g Na,low cholest Diet comment: Fluid restriction of 1200 mL daily Activity: No Restrictions, As Tolerated Follow Up/Referral: Per accepting provider Medications: Refer to medication reconciliation form No Active Prescriptions or Reported Meds 36 Discharge Statement: "Patient was advised to return to the ER or call 911 if any headaches, dizziness, shortness of breath, chest pain, abdominal pain, bleeding, fevers, or worsening of medical condition. Patient was counseled about treatment plan, medications, possible side effects, patientverbalized understanding. All questions were answered to the best of my ability. This discharge took greater then 30 minutes in planning, reviewing documentation, counseling the patient, and discussing with other team members." ASSESSMENT ASSESSMENT Assessment Acute Decompensated systolic heart failure Date of Service: Jul 17, 2025 Billing Provider: RUSSELL FRIEDMAN NP Common Visit Codes: [id number] DISCH DAY >30min RUSSELL FRIEDMAN NP Jul 17, 2025 16:45
[2025-07-17] MEDS: LORazepam 2MG/ML-1ML VIAL ONE (17:33)
[2025-07-17] MEDS: LORazepam 2MG/ML-1ML VIAL IV ONE (17:33)
[2025-07-17] MEDS: ETOMIDATE (2MG/ML) 20ML VIAL IV ONE ×2 (17:48→17:51)
[2025-07-17] MEDS: SUCCINYLCHOLINE CHLORIDE 20 MG/ML 10ML VIAL IV ONE ×2 (17:49→17:51)
[2025-07-17] MEDS: MIDAZOLAM DRIP 50 mg/50mL 50 ML IV ONE (17:57)
[2025-07-17] MEDS: NOREPINEPHRINE 8 MG/250ML KIT 250 ML IV ONE (17:58)
[2025-07-17] MEDS: MIDAZOLAM DRIP 50 mg/50mL 50 ML IV SCH (18:00)
[2025-07-17] MEDS: fentaNYL Drip 2500mCg/250mlNS 250 ML IV SCH (18:20)
[2025-07-17] MEDS: NOREPINEPHRINE 8 MG/250ML KIT 250 ML IV SCH (18:25)
[2025-07-17 18:29] LABS: Base Excess -12.0 mmol/L (-2.0-3.0)
[2025-07-17] MEDS: fentaNYL Drip 2500mCg/250mlNS 250 ML IV ONE (18:44)
--- NOTE | 2025-07-17 19:55 | DVH ---
CHEST RADIOGRAPH Indication: s/p intubation and central line Technique: Single frontal view of the chest was obtained COMPARISON: XY CHEST XRAY 1 VIEW on DOS: 07/17/25, CT CT ANGIO CHEST CONTRAST on DOS: 07/16/25, XY CHES T PORTABLE on DOS: 07/16/25, EKG on DOS: 08/03/22, CHEST PORTABLE on DOS: 03/16/21 FINDINGS: Lines and Tubes: Endotracheal tube and right central venous catheter in satisfactory position. Lungs: Pulmonary edema. Pleura: No effusion. No pneumothorax. Cardiomediastinal contours: Cardiomegaly. Bones: Unremarkable. IMPRESSION: Endotracheal tube and right central venous catheter in satisfactory position.
[2025-07-17 20:47] LABS: Hematocrit 44.4 % (41.0-53.0); Hemoglobin 14.6 g/dL (13.5-17.5); Mean Corpuscular Hemoglobin 30.6 pg (28.0-32.0); Mean Corpuscular Volume 93.0 fL (80.0-100.0); Nucleated Red Blood Cells % 0.8 %
[2025-07-17 21:00] LABS: Albumin 3.5 g/dL (3.2-4.8); Anion Gap 13 (5-15); BUN/Creatinine Ratio 13.0 (10.0-20.0); Carbon Dioxide 21 mmol/L (20-31); Chloride 102 mmol/L (98-107); Glucose 99 mg/dL (74-106); Potassium 4.4 mmol/L (3.5-5.1)
[2025-07-17 21:21] LABS: Alanine Aminotransferase 1967 U/L (7-40); Alkaline Phosphatase 134 U/L (46-116); Bilirubin, Total 1.9 mg/dL (0.2-1.0); Blood Urea Nitrogen 28 mg/dL (9-23); Calcium 7.4 mg/dL (8.7-10.4); Sodium 136 mmol/L (136-145); Total Protein 5.7 g/dL (5.7-8.2)
--- NOTE | 2025-07-17 23:12 | DVH ---
EXAM: CT HEAD WITHOUT CONTRAST INDICATION: CHANGE IN STATUS TECHNIQUE: CT of the head without intravenous contrast. Radiation Dose : 1. Head: CT Dose: CTDI volume is 54.65 mGy. Dose-length product is 1077.04 mGy*cm The dose indicators for CT are the volume Computed Tomography (CT) Dose Index (CTDIvol) and the Dose Length Product (DLP), and are measured in units of mGy and mGy-cm, respectively. These indicators are not patient dose, but values generated from the CT scanner acquisition factors. The report includes radiation exposure data for exposures received during this examination. COMPARISON: None FINDINGS: There is no evidence of acute intracranial hemorrhage, extra-axial collection, mass effect, midline s hift, herniation or hydrocephalus. The ventricles, sulci and cisterns are age appropriate. The boyer-white differentiation is intact. Bilateral maxillary mucosal sinus disease. The remaining visualized paranasal sinuses and mastoid ai r cells are clear. The surrounding soft tissues and osseous structures are unremarkable. IMPRESSION: 1. No acute intracranial abnormality. Radiation optimization: All CT scans at this facility use at least one of these dose optimization cici hniques: automated exposure control mA and/or kV adjustment per patient size (includes targeted exam s where dose is matched to clinical indication) or iterative reconstruction.
[2025-07-18] VITALS (10 sets, daily range): BP systolic 87–99; BP diastolic 52–59; PULSE 90–107; RESP 16–18; TEMP 99.1–101.3; O2SAT 98–100
== END 2025-07-18 01:39 | disposition short-term general hospital (02) | DRG 133 ==
LOC: ER 01:24 → OVERFLOW 08:25
PROVIDERS: ADMIT Nurse Practitioner Acute Care; ATTEND Nurse Practitioner Acute Care
PROC: 0BH17EZ Insertion of Endotracheal Airway into Trachea, Via Natural or Artificial Opening (ICD-10-PCS; principal; 2025-07-17)
PROC: 5A1935Z Respiratory Ventilation, Less than 24 Consecutive Hours (ICD-10-PCS; 2025-07-17)
DX: J96.01 Acute respiratory failure with hypoxia (principal); I50.23 Acute on chronic systolic (congestive) heart failure; I51.3 Intracardiac thrombosis, not elsewhere classified; I50.84 End stage heart failure; J10.00 Influenza due to other identified influenza virus with unspecified type of pneumonia; E87.20 Acidosis, unspecified; J90 Pleural effusion, not elsewhere classified; J18.9 Pneumonia, unspecified organism; Z20.822 Contact with and (suspected) exposure to COVID-19; J98.11 Atelectasis; R74.01 Elevation of levels of liver transaminase levels; N17.9 Acute kidney failure, unspecified; E80.6 Other disorders of bilirubin metabolism; R73.03 Prediabetes; F15.129 Other stimulant abuse with intoxication, unspecified; F10.10 Alcohol abuse, uncomplicated; Z83.3 Family history of diabetes mellitus; Z79.01 Long term (current) use of anticoagulants; Z79.899 Other long term (current) drug therapy; Y90.9 Presence of alcohol in blood, level not specified
CPT/HCPCS: 36415; 36600; 70450; 71045; 71275; 76604; 80048; 80053; 80061; 80307; 80320; 81001; 82805; 82962; 83036; 83605; 83735; 83880; 84439; 84443; 84484; 85025; 85379; 85652; 86141; 87040; 87070; 87081; 87205; 87426; 87804; 93005; 93306; 94002; 96365; 99291; G0378; J0330; J2405; J2543

== ENCOUNTER 2025-08-30 04:29 | Inpatient (IN) | payer MEDICAID ==
[~2025-08-30] VITALS: Ht 185.4 cm; Wt 80.8 kg
--- NOTE | 2025-08-30 05:29 | DVH ---
CHEST RADIOGRAPH Indication: CHEST PAIN Technique: 1 view Comparison: XY CHEST PORTABLE on DOS: 07/17/25, XY CHEST XRAY 1 VIEW on DOS: 07/17/25, XY CHEST PORTABLE on DOS: 07/16/25, EKG on DOS: 08/03/22, CHEST PORTABLE on DOS: 03/16/21 FINDINGS: Lines and Tubes: External leads. Lungs/Pleura: Resolution of previous patchy airspace disease in the right lung. Bilateral perihilar interstitial prominence. No evident pleural abnormality. Cardiomediastinum: Unchanged, enlarged heart size. Other: No acute osseous abnormality. IMPRESSION: 1. Mild heart failure pattern. No focal consolidation.
[2025-08-30 05:33] LABS: Hematocrit 42.4 % (41.0-53.0); Hemoglobin 14.1 g/dL (13.5-17.5); Mean Corpuscular Hemoglobin 30.2 pg (28.0-32.0); Mean Corpuscular Volume 90.9 fL (80.0-100.0); Nucleated Red Blood Cells % 0.3 %
--- NOTE | 2025-08-30 05:34 | ED.PDOC ---
HPI Comments HPI: 25-year-old male came to ER via EMS for chest pains. Patient states he woke up from sleep due to sudden-onset shortness of breath, along with a left-sided chest pains. Patient admits that he drank 1 pint of Vodka yesterday, but denies using any methamphetamines. States he last used methamphetamines over a month ago when he got admitted here, discharged on July 18, diagnosed with Acute Decompensated systolic heart failure Pulmonary embolism ruled out Amphetamine use Apical thrombus ETOH use Acute hypoxic respiratory failure Influenza B Bilateral pleural effusions Past Medical History: Congestive heart failure Past Surgical History: Denies Social History: Methamphetamine and alcohol abuse HPI: Poor Historian. : REVIEW OF SYSTEMS: CONSTITUTIONAL: Denies acute: fever, diaphoresis, chills, HEAD: Denies acute: headache, photophobia Eyes: Denies acute: Double vision, vision loss, eye pain, eye discharge. EARS: Denies acute: tinnitus, hearing loss, ear discharge, ear pain, THROAT: Denies acute: sore throat, swelling, difficulty swallowing , pain with swallowing, change in voice. NECK: Denies acute: neck pain, neck swelling, stiff neck. HEART: Denies acute : chest pain, palpitations, LUNGS: Denies acute: wheezing, cough, hemoptysis ABDOMEN: Denies acute: abdominal pain, Nausea, Vomiting, diarrhea, melena , hematemesis, hematochezia SKIN: Denies acute: rash, redness, lesions, itchiness. EXTREMITIES: Denies acute: calf pain, numbness, tingling, weakness, denies pain in extremity. Denies acute: Low back pain. Neuro: Denies acute: focal neurological deficit, motor or sensory focal neurological deficit, tremors, seizure like activity, confusion, dizziness, change in mental status, loss of bowel or bladder function, cauda equina like symptoms. : Denies acute: dysuria, hematuria, flank pain, increase in urinary frequency. PSYCH: Denies acute: hallucination, suicidal ideation, homicidal ideation. PHYSICAL EXAM: General: ---[id number]-----acute distress, awake and alert. Head: normocephalic, atraumatic. No raccoon's eyes, no rodríguez sign. Neck: supple, trachea is midline, no swelling. Throat: Normal phonation. Eyes:, no erythema, no purulent discharge, no proptosis, no icterus. Heart: regular tachycardic, no significant murmur appreciated. Lungs: Mild respiratory distress, Able to speak in full sentences. No wheezing, no rhonchi, no crackles. No stridors Clear to auscultation bilaterally. Abdomen: non tender to palpation, non distended, soft, no guarding, no rebound, + bowel sounds. Neuro: Awake, Alert, oriented to name, self, situation, follows commands GCS=15. Speech is normal. Skin: no petechia, no purpura, no cyanosis, non-pale, not jaundice. Lower extremities: --no - Pitting edema no deformity, no focal swelling, no calf TTP. Makes eye contact. moves all four extremities. Face: no apparent facial droop. ED COURSE: DISCLAIMER: This medical document was created using an electronic medical record system with voice recognition software and computerized dictation system. Although this document has been carefully reviewed, there might still be some phonetic and typographical errors. Occasional wrong-word or "sound-alike" substitutions may have occurred due to the inherent limitations of voice recognition software. These areas are purely typographical due to imperfections of the software programs and do not reflect any compromise in the patient's medical care. Please read the chart carefully and recognize, using context, where these substitutions have occurred. Chief Complaint: Chest Pain Time Seen by MD: 05:36 Primary Care Provider: NONE Reviewed Notes: Nurses Notes, Allergies Allergies: Coded Allergies: NO KNOWN ALLERGIES (Unverified , 11/18/15) Home Meds Reported Medications Spironolactone (Spironolactone) 25 Mg Tab, 1 TAB PO DAILY 09/05/25 Dapagliflozin Propanediol (Farxiga) 10 Mg Tab, 1 TAB PO DAILY 09/05/25 Information Source: Patient Mode of Arrival: EMS Past Medical History PAST MEDICAL HISTORY: CHF Surgical History: Denies all surgeries Family History Family History: Family hx of DM Social History Smoker: Non-Smoker Alcohol: Heavy Drugs: Methamphetamine Lives In: Home Was a procedure done? Was a procedure done?: No CP Differential Dx Differential Diagnosis: N/A Differential Diagnosis: Other (Ddx include but not limitied to gastritis, mu sculoskeletal pain, radiculopathy, atypical chest pain, dissection, aneurysm, ACS, unstable angina, hiatal hernia, GERD, anxiety, costochondritis, PE, pneumothroax, neoplasm, cardiac ischemia, drug abuse, anemia.) X-Ray, Labs, Meds, VS Vital Signs Date Time Temp Pulse Resp B/P (MAP) Pulse Ox O2 Delivery O2 Flow Rate FiO2 08/30/25 08:00 97.7 97 12 108/80 (89) 99 97.7 08/30/25 08:00 97 12 99 Nasal Cannula* 2 28 08/30/25 06:26 100 12 100 Nasal Cannula* 2 28 08/30/25 06:26 97.8 106 12 106/76 (86) 100 97.8 08/30/25 05:56 106/76 08/30/25 05:45 103 08/30/25 04:34 111 08/30/25 04:30 97.8 112 24 106/88 99 97.8 Lab Test 08/30/25 08:00 08/30/25 07:57 08/30/25 06:24 08/30/25 05:13 Range/Units Troponin I High Sensitivity 903 *H 953 *H 1001 *H </=54 ng/L Urine Opiates Screen Neg NEGATIVE Urine Fentanyl Screen Neg NEGATIVE Urine Barbiturates Screen Neg NEGATIVE Urine Phencyclidine Screen Neg NEGATIVE Urine Amphetamines Screen Pos NEGATIVE Urine Benzodiazepines Screen Neg NEGATIVE Urine Cocaine Screen Neg NEGATIVE Urine Cannabinoids Screen Neg NEGATIVE Lactic Acid Level 1.9 0.4-2.0 mmol/L White Blood Count 5.9 4.4-10.8 10^3/uL Red Blood Count 4.67 4.5-5.90 10^6/uL Hemoglobin 14.1 13.5-17.5 g/dL Hematocrit 42.4 41.0-53.0 % Mean Corpuscular Volume 90.9 80.0-100.0 fL Mean Corpuscular Hemoglobin 30.2 28.0-32.0 pg Mean Corpuscular Hemoglobin Concent 33.2 32.0-36.0 g/dL Red Cell Distribution Width 14.4 H 11.8-14.3 % Platelet Count 211 140-450 10^3/uL Mean Platelet Volume 9.3 6.9-10.8 fL Neutrophils (%) (Auto) 68.1 37.0-80.0 % Lymphocytes (%) (Auto) 25.6 10.0-50.0 % Monocytes (%) (Auto) 4.9 0.0-12.0 % Eosinophils (%) (Auto) 1.1 0.0-7.0 % Basophils (%) (Auto) 0.3 0.0-2.0 % Neutrophils # (Auto) 4.0 1.6-8.6 10 ^3/uL Lymphocytes # (Auto) 1.5 0.4-5.4 10 ^3/uL Monocytes # (Auto) 0.3 0-1.3 10 ^3/uL Eosinophils # (Auto) 0.1 0-0.8 10 ^3/uL Basophils # (Auto) 0 0-0.2 10 ^3/uL Nucleated Red Blood Cells 0.3 % Sodium Level 136 136-145 mmol/L Potassium Level 3.9 3.5-5.1 mmol/L Chloride Level 99 98-107 mmol/L Carbon Dioxide Level 25 20-31 mmol/L Anion Gap 12 5-15 Blood Urea Nitrogen 18 9-23 mg/dL Creatinine 1.31 H 0.700-1.30 mg/dL Glomerular Filtration Rate Calc 77 >90 mL/min BUN/Creatinine Ratio 13.7 10.0-20.0 Serum Glucose 117 H 74-106 mg/dL Calcium Level 9.2 8.7-10.4 mg/dL Magnesium Level 1.8 1.6-2.6 mg/dL Total Bilirubin 1.1 H 0.2-1.0 mg/dL Aspartate Amino Transferase (AST) 52 H 13-40 U/L Alanine Aminotransferase (ALT) 26 7-40 U/L Alkaline Phosphatase 147 H 46-116 U/L B-Type Natriuretic Peptide 1475.61 0-100 pg/mL Total Protein 6.7 5.7-8.2 g/dL Albumin 3.8 3.2-4.8 g/dL [address] [address] Ph: [phone] DIAGNOSTIC IMAGING Diagnostic Imaging Report : [id number] Signed PATIENT: GABI HANNA ACCT: [id number] UNIT: [id number] : 2000 LOC: ER ROOM / BED: / AGE / SEX: 25 / M ADM STATUS: REG ER SERVICE [id number] ORDERING PHYSICIAN: CHAPINCITO CARDONA DO PROCEDURE(s): CXRP - CHEST PORTABLE REASON: CHEST PAIN ORDER NUMBER(s): [id number], ACCESSION NUMBER(s): [id number] CHEST RADIOGRAPH Indication: CHEST PAIN Technique: 1 view Comparison: XY CHEST PORTABLE on DOS: 07/17/25, XY CHEST XRAY 1 VIEW on DOS: 07/17/25, XY CHEST PORTABLE on DOS: 07/16/25, EKG on DOS: 08/03/22, CHEST PORTABLE on DOS: 03/16/21 FINDINGS: Lines and Tubes: External leads. Lungs/Pleura: Resolution of previous patchy airspace disease in the right lung. Bilateral perihilar interstitial prominence. No evident pleural abnormality. Cardiomediastinum: Unchanged, enlarged heart size. Other: No acute osseous abnormality. IMPRESSION: 1. Mild heart failure pattern. No focal consolidation. ATED BY: ERIKA URBINA MD DICTATED DATE/TIME: 08/30/25525 SIGNED BY: ERIKA URBINA MD SIGNED DATE/TIME: 08/30/25525 CC: Time of 1ST Reevaluation: 05:31 Reevaluation 1ST: Unchanged Patient Education/Counseling: Diagnosis, Treatment Family Education/Counseling: No Family Present Comments MDM: patient presented with the above HPI.---cardiac---workup was initiated. patient was found with the above mentioned diagnosis. the following medications were ordered: please refer to order lists of meds and tests obtained by myself Dr. Cardona. Patient ED course and VS have been stabilized. Patient has been reassessed in the ED and remained in a stable condition. Pertinent incidental findings were discussed with the patient and/or family. Patient/family voices understanding and is agreeable with plan. Patient has been observed in the ED adequate length of time to insure improvement/stability. Escalation of care considered: Consideration of escalation to observation or admission Cardiology was consulted. Patient was given aspirin and thiamine and Lasix. Patient later was started on heparin by the hospitalist team. Patient was ADMITTED to the medicine team for further evaluation and treatment of their presentation. All the reports of any imaging studies that were ordered by myself were reviewed by myself. SEPSIS Sepsis Screen Date sepsis recognized/suspect: Aug 30, 2025 Time Sepsis recognized/suspect: 043 Recent Procedure: No On Antibiotic Therapy: No Respiratory Rate >20: Yes Heart Rate >90: Yes Temp<36 C (96.8 F) or >38.3 C: No SBP <90 or MAP <65 mmHG: No New Acute Mental Status Change: No Is the patient on CPAP, BIPAP,: No Physician Orders Chest Portable (08/30/25 04:35) Electrocardigram (08/30/25 04:35) Electrocardigram (08/30/25 05:35) Electrocardigram (08/30/25 07:35) Certified Professional Coder (08/30/25 ) Vital Signs Date Time Temp Pulse Resp B/P (MAP) Pulse Ox O2 Delivery O2 Flow Rate FiO2 08/30/25 08:00 97.7 97 12 108/80 (89) 99 97.7 08/30/25 08:00 97 12 99 Nasal Cannula* 2 28 08/30/25 06:26 100 12 100 Nasal Cannula* 2 28 08/30/25 06:26 97.8 106 12 106/76 (86) 100 97.8 08/30/25 05:56 106/76 08/30/25 05:45 103 08/30/25 04:34 111 08/30/25 04:30 97.8 112 24 106/88 99 97.8 Laboratory Tests Test 08/30/25 05:13 08/30/25 06:24 White Blood Count 5.9 10^3/uL (4.4-10.8) Lactic Acid Level 1.9 mmol/L (0.4-2.0) Departure 1 Departure Time of Disposition: 05:53 Impression: Primary Impression: Congestive heart failure Additional Impressions: Acute respiratory distress syndrome Tachycardia NSTEMI (non-ST elevated myocardial infarction) Alcohol abuse Methamphetamine abuse Disposition: 09 ADMITTED INPATIENT Admit to: [facility] Condition: Guarded Discharged With: Self Critical Care Note Critical Care Time?: Yes (1 hr-critical care time only) Heart Score Heart Score: Heart Score Response (Comments) Value History Moderate Suspicious 1 EKG Normal 0 Age <45 0 Risk Factors 1 or 2 risk factors 1 Troponin >3 x's Normal limit 2 Total 4 I personally scribed for CHAPINCITO CARDONA DO ([email or web address]) on 08/30/25 at 05:34. Electronically submitted by Ben Dubon ([facility]). I personally scribed for CHAPINCITO CARDONA DO ([email or web address]) on 08/30/25 at 05:36. Electronically submitted by [facility]Bn Dubon ([facility]). I personally scribed for CHAPINCITO CARDONA DO ([email or web address]) on 08/30/25 at 05:37. Electronically submitted by Ben Dubon ([facility] I personally scribed for CHAPINCITO CARDONA DO ([email or web address]) on 08/30/25 at 05:45. Electronically submitted by Ben Dubon ([facility] I personally scribed for CHAPINCITO CARDONA DO ([email or web address]) on 08/30/25 at 05:59. Electr onically submitted by Ben Dubon ([facility]). I personally scribed for CHAPINCITO CARDONA DO ([email or web address]) on 08/30/25 at 06:03. El ectronically submitted by Ben Dubon ([facility] CHAPINCITO CARDONA DO Aug 30, 2025 05:34
[2025-08-30 05:50] LABS: Alanine Aminotransferase 26 U/L (7-40); Albumin 3.8 g/dL (3.2-4.8); Anion Gap 12 (5-15); BUN/Creatinine Ratio 13.7 (10.0-20.0); Blood Urea Nitrogen 18 mg/dL (9-23); Calcium 9.2 mg/dL (8.7-10.4); Carbon Dioxide 25 mmol/L (20-31); Chloride 99 mmol/L (98-107); Magnesium 1.8 mg/dL (1.6-2.6); Potassium 3.9 mmol/L (3.5-5.1); Sodium 136 mmol/L (136-145); Total Protein 6.7 g/dL (5.7-8.2)
[2025-08-30 05:51] LABS: Bilirubin, Total 1.1 mg/dL (0.2-1.0)
[2025-08-30 05:54] LABS: Alkaline Phosphatase 147 U/L (46-116); Glucose 117 mg/dL (74-106)
[2025-08-30] MEDS: FUROSEMIDE 40 MG/4 ML VIAL IV ONE (05:56)
[2025-08-30] MEDS: THIAMINE HCL 100 MG TAB PO ONE (05:57)
[2025-08-30] MEDS: ASPirin-EC 325mg tab PO ONE (05:59)
[2025-08-30 06:26] VITALS: PULSE 100; RESP 12; O2SAT 100
[2025-08-30 08:00] VITALS: PULSE 97; RESP 12; O2SAT 99
[2025-08-30 08:33] LABS: Amphetamine Screen, Urine Pos (NEGATIVE)
[2025-08-30 08:37] LABS: Opiate Scree,Urine Neg (NEGATIVE)
[2025-08-30 08:38] LABS: Barbiturate Scree,Urine Neg (NEGATIVE); Benzodiazephine Screen, Urine Neg (NEGATIVE); Cannabinoid Screen, Urine Neg (NEGATIVE); Cocaine Screen, Urine Neg (NEGATIVE); Phencyclidine Screen, Urine Neg (NEGATIVE)
--- NOTE | 2025-08-30 08:57 | DVHHP2 ---
Admitting Diagnosis: Chest pain History of Present Illness 25-year-old male came to ER via EMS for chest pains. Patient states he woke up from sleep due to sudden-onset shortness of breath, along with a left-sided chest pains. Patient admits that he drank 1 pint of Vodka yesterday, but denies using any methamphetamines. States he last used methamphetamines over a month ago when he got admitted here, discharged on July 18, diagnosed with Acute Decompensated systolic heart failure Pulmonary embolism ruled out Amphetamine use Apical thrombus ETOH use Acute hypoxic respiratory failure Influenza B Bilateral pleural effusions. Patient denies dizziness, nausea vomiting, fever chills, melena. REVIEW OF SYSTEMS: CONSTITUTIONAL: Denies acute: fever, diaphoresis, chills, HEAD: Denies acute: headache, photophobia Eyes: Denies acute: Double vision, vision loss, eye pain, eye discharge. EARS: Denies acute: tinnitus, hearing loss, ear discharge, ear pain, THROAT: Denies acute: sore throat, swelling, difficulty swallowing , pain with swallowing, change in voice. NECK: Denies acute: neck pain, neck swelling, stiff neck. HEART: Denies acute : chest pain, palpitations, LUNGS: Denies acute: wheezing, cough, hemoptysis ABDOMEN: Denies acute: abdominal pain, Nausea, Vomiting, diarrhea, melena , hematemesis, hematochezia SKIN: Denies acute: rash, redness, lesions, itchiness. EXTREMITIES: Denies acute: calf pain, numbness, tingling, weakness, denies pain in extremity. Denies acute: Low back pain. Neuro: Denies acute: focal neurological deficit, motor or sensory focal neurological deficit, tremors, seizure like activity, confusion, dizziness, change in mental status, loss of bowel or bladder function, cauda equina like symptoms. : Denies acute: dysuria, hematuria, flank pain, increase in urinary frequency. PSYCH: Denies acute: hallucination, suicidal ideation, homicidal ideation. PAST MEDICAL HISTORY: CHF Surgical History: Denies all surgeries Family History Family History: Family hx of DM Social History Smoker: Non-Smoker Alcohol: Heavy Drugs: Methamphetamine Lives In: Home Patient Family History: Diabetes mellitus G8 FATHER Allergies: Coded Allergies: NO KNOWN ALLERGIES (Unverified , 11/18/15) Home Meds No Active Prescriptions or Reported Meds Vital Signs Vital Signs Date Time Temp Pulse Resp B/P (MAP) Pulse Ox O2 Delivery O2 Flow Rate FiO2 08/30/25 06:26 100 12 100 Nasal Cannula* 2 28 08/30/25 06:26 97.8 106/76 (86) 97.8 Physical Exam Generally-25 years old male, well nourished well developed. Mild distress HEENT-atraumatic, normocephalic Heart-regular rate and rhythm Lungs clear to auscultate Abdomen soft nontender nondistended Musculoskeletal positive pedal edema negative cyanosis Neuro-resident until, no focal deficits SEPSIS Sepsis Screen Date sepsis recognized/suspect: Aug 30, 2025 Time Sepsis recognized/suspect: 429 Recent Procedure: No On Antibiotic Therapy: No Respiratory Rate >20: Yes Heart Rate >90: Yes Temp<36 C (96.8 F) or >38.3 C: No SBP <90 or MAP <65 mmHG: No New Acute Mental Status Change: No Is the patient on CPAP, BIPAP,: No Physician Orders Chest Portable (08/30/25 04:35) Electrocardigram (08/30/25 04:35) Troponin-I Hs (08/30/25 07:35) Electrocardigram (08/30/25 05:35) Electrocardigram (08/30/25 07:35) Arch Cushion Press Operator (08/30/25 ) * Cardiology Consult (08/30/25 05:53) Admit (08/30/25 08:53) Code Status (08/30/25 08:53) Vital Signs .PER UNIT PROTOCOL (08/30/25 08:53) Review Orders With Adm. (08/30/25 08:53) Encourage Activity As Tolerate (08/30/25 08:53) Sodium Chloride Lock (Saline Lock Ns) (08/30/25 14:00) Docusate Sodium Capsule (Colace Capsule) (08/30/25 09:00) Acetaminophen Tablet (Tylenol Tablet) (08/30/25 09:00) Notify Md Of Changes From Base (08/30/25 08:53) Advance Directive (08/30/25 08:53) Patient Condition (08/30/25 08:53) Allergies (08/30/25 08:53) Hydrocodone-Acet 5/325mg Tab ([place] 5/32 (08/30/25 09:00) Hydromorphone Injection (Dilaudid Inject (08/30/25 09:00) Ondansetron Hcl (Zofran) (08/30/25 09:00) Lovenox 40mg (08/30/25 10:00) Nitroglycerin Sublingual (Ntrostat Subli (08/30/25 09:00) Morphine Sulfate Injection (08/30/25 09:00) Stat Ekg For Chest Pain (08/30/25 08:53) Notify Of Changes From Base (08/30/25 08:53) [place] For 24 Hours (08/30/25 08:53) Emergency Dysrhythmia Protocol (08/30/25 08:53) Rhythm Strips Once Every Shift (08/30/25 08:53) Oxygen By Nasal Cannula (08/30/25 08:53) Cardiac Diet-2gna,Lofat,Lochol (08/30/25 Breakfast) Vital Signs Date Time Temp Pulse Resp B/P (MAP) Pulse Ox O2 Delivery O2 Flow Rate FiO2 08/30/25 06:26 100 12 100 Nasal Cannula* 2 28 08/30/25 06:26 97.8 106 12 106/76 (86) 100 97.8 08/30/25 05:56 106/76 08/30/25 05:45 103 08/30/25 04:34 111 08/30/25 04:30 97.8 112 24 106/88 99 97.8 Laboratory Tests Test 08/30/25 05:13 08/30/25 06:24 White Blood Count 5.9 10^3/uL (4.4-10.8) Lactic Acid Level 1.9 mmol/L (0.4-2.0) Medications Medications Dose Ordered Sig/Chrystal Route Start Time Stop Time Status Last Admin Dose Admin Aspirin 325 mg ONCE ONCE PO 08/30/25 06:00 08/30/25 06:01 DC 08/30/25 05:59 Furosemide 40 mg ONCE ONCE IV 08/30/25 05:45 08/30/25 05:50 DC 08/30/25 05:56 Thiamine HCl 100 mg ONCE ONCE PO 08/30/25 05:45 08/30/25 05:50 DC 08/30/25 05:57 Results Labs Test 08/30/25 08:00 08/30/25 07:57 08/30/25 06:24 08/30/25 05:13 Range/Units Urine Opiates Screen Neg NEGATIVE Urine Fentanyl Screen Neg NEGATIVE Urine Barbiturates Screen Neg NEGATIVE Urine Phencyclidine Screen Neg NEGATIVE Urine Amphetamines Screen Pos NEGATIVE Urine Benzodiazepines Screen Neg NEGATIVE Urine Cocaine Screen Neg NEGATIVE Urine Cannabinoids Screen Neg NEGATIVE Lactic Acid Level 1.9 0.4-2.0 mmol/L White Blood Count 5.9 4.4-10.8 10^3/uL Red Blood Count 4.67 4.5-5.90 10^6/uL Hemoglobin 14.1 13.5-17.5 g/dL Hematocrit 42.4 41.0-53.0 % Mean Corpuscular Volume 90.9 80.0-100.0 fL Mean Corpuscular Hemoglobin 30.2 28.0-32.0 pg Mean Corpuscular Hemoglobin Concent 33.2 32.0-36.0 g/dL Red Cell Distribution Width 14.4 H 11.8-14.3 % Platelet Count 211 140-450 10^3/uL Mean Platelet Volume 9.3 6.9-10.8 fL Neutrophils (%) (Auto) 68.1 37.0-80.0 % Lymphocytes (%) (Auto) 25.6 10.0-50.0 % Monocytes (%) (Auto) 4.9 0.0-12.0 % Eosinophils (%) (Auto) 1.1 0.0-7.0 % Basophils (%) (Auto) 0.3 0.0-2.0 % Neutrophils # (Auto) 4.0 1.6-8.6 10 ^3/uL Lymphocytes # (Auto) 1.5 0.4-5.4 10 ^3/uL Monocytes # (Auto) 0.3 0-1.3 10 ^3/uL Eosinophils # (Auto) 0.1 0-0.8 10 ^3/uL Basophils # (Auto) 0 0-0.2 10 ^3/uL Nucleated Red Blood Cells 0.3 % Sodium Level 136 136-145 mmol/L Potassium Level 3.9 3.5-5.1 mmol/L Chloride Level 99 98-107 mmol/L Carbon Dioxide Level 25 20-31 mmol/L Anion Gap 12 5-15 Blood Urea Nitrogen 18 9-23 mg/dL Creatinine 1.31 H 0.700-1.30 mg/dL Glomerular Filtration Rate Calc 77 >90 mL/min BUN/Creatinine Ratio 13.7 10.0-20.0 Serum Glucose 117 H 74-106 mg/dL Calcium Level 9.2 8.7-10.4 mg/dL Magnesium Level 1.8 1.6-2.6 mg/dL Total Bilirubin 1.1 H 0.2-1.0 mg/dL Aspartate Amino Transferase (AST) 52 H 13-40 U/L Alanine Aminotransferase (ALT) 26 7-40 U/L Alkaline Phosphatase 147 H 46-116 U/L B-Type Natriuretic Peptide 1475.61 0-100 pg/mL Total Protein 6.7 5.7-8.2 g/dL Albumin 3.8 3.2-4.8 g/dL Primary Diagnosis Chest pain rule out ACS Acute on chronic CHF exacerbation Methamphetamines abuse Plan Elevated troponin 1000, plateau at 900 Cardiology consult Check echo of the heart Resume home meds Consult on drug use IV Lasix 40 mg b.i.d. Daily weights Fluid restriction Strict in and out Full code Cardiac diet Lovenox for DVT prophylaxis No GI prophylaxis needed Plan discussed with: Patient Problems List: (1) Congestive heart failure Status: Acute (2) Alcohol abuse Status: Acute Date of Service: Aug 30, 2025 Billing Provider: FRIEDA GARCIA MD Common Visit Codes: 13486-BNOQGAP INP/OBS CARE (HIGH) FRIEDA GARCIA MD Aug 30, 2025 08:57
[2025-08-30] MEDS ORDERED: ACETAMINOPHEN 325 MG TAB PO PRN (09:00)
[2025-08-30] MEDS ORDERED: NITROGLYCERIN 0.4 MG SL TAB SL PRN (09:00)
[2025-08-30] MEDS ORDERED: DOCUSATE SOD 100 MG CAP PO PRN (09:00)
[2025-08-30] MEDS ORDERED: HYDROcodone-ACET 5/325MG TAB PO PRN (09:00)
[2025-08-30] MEDS ORDERED: ONDANSETRON HCL 4 MG/2 ML VIAL IV PRN (09:00)
[2025-08-30] MEDS ORDERED: MORPHINE SULFATE INJ 2 MG/ml SYRG IV PRN (09:00)
--- NOTE | 2025-08-30 10:22 | DVH ---
CLINICAL HISTORY: gael TECHNIQUE: Complete ultrasound exam of the kidneys and bladder was performed. COMPARISON: None FINDINGS: The right kidney has normal echogenicity and measures 8.9 cm. There is no focal parenchymal abnormality or evidence for stone. There is no hydronephrosis. The left kidney has normal echogenicity and measures 10.0 cm. There is no focal parenchymal abnormality or evidence for stone. There is no hydronephrosis. The bladder is grossly unremarkable. There are partially imaged bilateral pleural effusion IMPRESSION: No significant sonographic abnormality of the kidneys. Partially imaged bilateral pleural effusions.
[2025-08-30] MEDS: ENOXAPARIN SOD 40 MG/0.4 ML SYRINGE SC SCH (10:53)
[2025-08-30] MEDS: FUROSEMIDE 40 MG/4 ML VIAL IV SCH (10:54)
[2025-08-30 12:47] VITALS: PULSE 93; RESP 20; RESP 21; O2SAT 100
--- NOTE | 2025-08-30 13:46 | DVHSR ---
APPROVED REPORT EXAM: Two-dimensional and M-mode echocardiogram with Doppler and color Doppler. Blood Pressure: 106/76 mmHg INDICATION Chest Pain R/O ACS RISK FACTORS Height: 6' 1", Weight: 170 DIMENSIONS LVDd 6.2 (3.8-5.7cm) LA (2D) 6.0 (1.9-4.0cm) Aortic Root 3.2 (2.0-3.7cm) LVDs 6.1 (2.5-4.0cm) LA (MM) (1.9-4.0cm) Aortic Cusp Exc 1.9 (1.5-2.0cm) EF (%) 5.0 (55-70%) Rt. Atrium 5.6 (1.9-4.0cm) Asc. Aorta cm IVSd 1.1 (0.7-1.1cm) RV (D) (1.8-2.4cm) PWd 1.2 (0.7-1.1cm) Mitral Valve Mitral Mitral Stenosis E wave 1.00m/s MV Mean GR. mmHg A wave 0.40m/s MV Peak GR. mmHg E/A ratio 2.5 2D MVA cm2 Aortic Valve Aortic Valve Aortic Stenosis V1 0.20m/s AO Mean GR. 0mmHg V2 0.40m/s AO Peak GR. 1mmHg LVOT Diameter 2.4 (1.8-2.4cm) Doppler NIKKY 2.26cm2 Pulmonic Valve V2 0.20m/s Tricuspid Valve TR Velocity 2.10m/s RVSP 25mmHg Conclusion DILATED ALL CARDIAC CHAMBERS LV EF IS ONLY 5% SEVERE GLOBAL HYPOKINESIS OF ALL CARDIAC CHAMBERS SEVERE MR AND TR NORMAL VALVES IT IS END STAGE DILATED CARDIOMYOPATHY NO EFFUSION
[2025-08-30] MEDS: SODIUM CHLOR 0.9% PF (SALINE LOCK) 10ML VIAL/SYR IV SCH (14:03)
[2025-08-30 19:45] VITALS: PULSE 95; RESP 20; O2SAT 100
[2025-08-30 21:24] VITALS: BP 111/70; PULSE 97; RESP 18; TEMP 97.8; O2SAT 97
[2025-08-30 22:20] VITALS: BP 111/70; PULSE 98; RESP 18; TEMP 97.8; O2SAT 98
[2025-08-31] VITALS (9 sets, daily range): BP systolic 82–107; BP diastolic 52–80; PULSE 91–157; RESP 18–20; TEMP 97.6–98.9; O2SAT 94–100
[2025-08-31] MEDS: HYDROmorphone HCL 2 MG/ML VL/or syr IV PRN (01:32)
--- NOTE | 2025-08-31 15:28 | DVHPN2 ---
Subjective The patient is seen and examined at bedside. Very tired and sleepy today. He said the last time he used methamphetamine was three months ago Reviewed: Care Plan, H&P, Labs, Medications, Previous Orders, Radiology Changes from previous H/P or p: No Changes Objective Vitals Vital Signs Date Time Temp Pulse Resp B/P (MAP) Pulse Ox O2 Delivery O2 Flow Rate FiO2 08/31/25 12:48 97.7 101 18 97/71 (80) 94 97.7 08/31/25 08:00 Nasal Cannula* 2 28 Intake/Output Intake and Output 08/31/25 07:00 Intake Total 460 ml Output Total 250 ml Balance 210 ml Intake Oral 460 ml Output Urine Total 250 ml General Appearance: Alert, Cooperative, No acute distress HEENT: Atraumatic, PERRLA, EOMI, Mucous membr. moist/pink Neck: Supple Lungs: Clear to auscultation, Normal air movement Cardiovascular: Regular rate, Normal S1, Normal S2, No murmurs, Gallops, Rubs Abdomen: Normal bowel sounds, Soft, No tenderness Neuro: Cranial nerves 3-12 NL Psych/Mental Status: Mental status NL Medications Current Medications Medications Dose Ordered Sig/Chrystal Route Start Time Stop Time Status Last Admin Dose Admin Sodium Chloride 10 ml Q8HR IV 08/30/25 14:00 08/31/25 13:20 10 ML Docusate Sodium 100 mg BIDPRN PRN PO 08/30/25 09:00 Acetaminophen 650 mg Q6HP PRN PO 08/30/25 09:00 Acetaminophen/ Hydrocodone Bitart 1 tab Q4HP PRN PO 08/30/25 09:00 Hydromorphone HCl 0.5 mg Q4HP PRN IV 08/30/25 09:00 08/31/25 01:32 0.5 MG Ondansetron HCl 4 mg Q4HP PRN IV 08/30/25 09:00 Enoxaparin Sodium 40 mg DAILY SC 08/30/25 10:00 08/31/25 11:09 40 MG Nitroglycerin 0.4 mg Q5MINP PRN SL 08/30/25 09:00 Morphine Sulfate 2 mg Q30M PRN IV 08/30/25 09:00 Furosemide 40 mg BIDD IV 08/30/25 10:00 08/31/25 05:27 40 MG Laboratory Results Laboratory Tests 08/30/25 05:13 Labs and/or images reviewed: Labs reviewed by me Assessment/Plan Assessment/Plan Chest pain rule out ACS Acute on chronic CHF exacerbation Methamphetamines abuse Alcohol abuse Plan Continuing current management. Waiting for 2D echo Continuing Lasix 40 mg b.i.d. Waiting for veterinary hospital attendant to see the patient Counseled the patient to stop drinking more than 12 minutes Also counseled The patient to stop using methamphetamine more than 15 minutes This medical document was created using an electronic medical record system with [employer] computerized dictation system. Although this document has been carefully reviewed, there may still be some phonetic and typographical errors. These areas are purely typographical due to imperfections of the software programs, and do not reflect any compromise in the patient's medical care. Plan discussed with: Patient Date of Service: Aug 31, 2025 Billing Provider: JORDON ORTIZ MD Common Visit Codes: [id number] INP/OBS CARE(HIGH) JORDON ORTIZ MD Aug 31, 2025 15:28
[2025-08-31] MEDS: LIDOCAINE 5% TOPICAL PATCH TOP ONE (17:00)
[2025-08-31] MEDS: HEPARIN DRIP/D5W 100UNITS/ML 250 ML IV SCH ×2 (17:15→19:07)
[2025-08-31 18:30] LABS: Hematocrit 42.7 % (41.0-53.0); Hemoglobin 14.3 g/dL (13.5-17.5); Mean Corpuscular Hemoglobin 30.8 pg (28.0-32.0); Mean Corpuscular Volume 91.8 fL (80.0-100.0); Nucleated Red Blood Cells % 0.3 %
[2025-08-31 18:45] LABS: INR 1.26 (0.9-1.15); Partial Thromboplastin Time 27.2 SEC (24.5-34.5); Prothrombin Time 13.1 sec (9.3-11.8)
--- NOTE | 2025-08-31 20:04 | DVHINCON2 ---
Date of service: Aug 31, 2025 Reason for Consultation SHUN History of Present Illness 25 years old male with past medical history of SVT presented with chief complaint of palpitations and chest pain he has a history of methamphetamine abuse he also has history of Congestive heart failure, amphetamine abuse, apical thrombus, His ejection fraction is only 5 percent severe MR and TR he also has end-stage dilated cardiomyopathy Past Medical History As per HPI Past Surgical History As per HPI Allergies: Coded Allergies: NO KNOWN ALLERGIES (Unverified , 11/18/15) Home Meds Unable to Obtain Active Prescriptions or Reported Meds Current Medications Current Medications Medications (Trade) Dose Ordered Sig/Chrystal Route PRN Reason Start Time Stop Time Status Last Admin Heparin Sodium/ Dextrose 250 ml @ 10 mls/hr Q24H IV 08/31/25 17:15 08/31/25 19:40 DC 08/31/25 17:15 Heparin Sodium/ Dextrose 250 ml @ 10 mls/hr Q24H IV 08/31/25 19:30 Family History: Diabetes mellitus G8 FATHER Review of Systems As per HPI H&P Exam Vital Signs/I&O Vital Sign Date Time Temp Pulse Resp B/P (MAP) Pulse Ox O2 Delivery O2 Flow Rate FiO2 08/31/25 17:32 97.6 110 20 102/54 (70) 97 97.6 08/31/25 08:00 Nasal Cannula* 2 28 Intake and Output 08/30/25 08/31/25 19:00 07:00 Intake Total 460 ml Output Total 250 ml Balance -250 ml 460 ml Intake Oral 460 ml Output Urine Total 250 ml Physical Exam General-not in any distress HEENT-normocephalic, no icterus, no pallor, neck supple Respiratory-fair air entry bilateral, no rhonchi, no wheeze [id number] heard, tachycardic irregular rate Abdominal-soft, nontender, nondistended Musculoskeletal-no pedal edema, no calf tenderness Genitourinary-deferred Neuro-awake alert oriented x3, Psychiatric-not agitated, cooperative, Labs/Diagnostic Data Labs/Diagnostic Data Laboratory Tests Test 08/31/25 18:16 08/30/25 22:36 08/30/25 08:00 08/30/25 07:57 Range/Units White Blood Count 5.3 4.4-10.8 10^3/uL Red Blood Count 4.66 4.5-5.90 10^6/uL Hemoglobin 14.3 13.5-17.5 g/dL Hematocrit 42.7 41.0-53.0 % Mean Corpuscular Volume 91.8 80.0-100.0 fL Mean Corpuscular Hemoglobin 30.8 28.0-32.0 pg Mean Corpuscular Hemoglobin Concent 33.6 32.0-36.0 g/dL Red Cell Distribution Width 14.7 H 11.8-14.3 % Platelet Count 211 140-450 10^3/uL Mean Platelet Volume 9.4 6.9-10.8 fL Neutrophils (%) (Auto) 55.8 37.0-80.0 % Lymphocytes (%) (Auto) 34.2 10.0-50.0 % Monocytes (%) (Auto) 7.3 0.0-12.0 % Eosinophils (%) (Auto) 2.0 0.0-7.0 % Basophils (%) (Auto) 0.7 0.0-2.0 % Neutrophils # (Auto) 3.0 1.6-8.6 10 ^3/uL Lymphocytes # (Auto) 1.8 0.4-5.4 10 ^3/uL Monocytes # (Auto) 0.4 0-1.3 10 ^3/uL Eosinophils # (Auto) 0.1 0-0.8 10 ^3/uL Basophils # (Auto) 0 0-0.2 10 ^3/uL Nucleated Red Blood Cells 0.3 % Prothrombin Time 13.1 H 9.3-11.8 sec Prothrombin Time INR 1.26 H 0.9-1.15 Activated Partial Thromboplast Time 27.2 24.5-34.5 SEC Troponin I High Sensitivity 232 *H 903 *H </=54 ng/L Urine Opiates Screen Neg NEGATIVE Urine Fentanyl Screen Neg NEGATIVE Urine Barbiturates Screen Neg NEGATIVE Urine Phencyclidine Screen Neg NEGATIVE Urine Amphetamines Screen Pos NEGATIVE Urine Benzodiazepines Screen Neg NEGATIVE Urine Cocaine Screen Neg NEGATIVE Urine Cannabinoids Screen Neg NEGATIVE Test 08/30/25 06:24 08/30/25 05:13 Range/Units Lactic Acid Level 1.9 0.4-2.0 mmol/L Troponin I High Sensitivity 953 *H 1001 *H </=54 ng/L White Blood Count 5.9 4.4-10.8 10^3/uL Red Blood Count 4.67 4.5-5.90 10^6/uL Hemoglobin 14.1 13.5-17.5 g/dL Hematocrit 42.4 41.0-53.0 % Mean Corpuscular Volume 90.9 80.0-100.0 fL Mean Corpuscular Hemoglobin 30.2 28.0-32.0 pg Mean Corpuscular Hemoglobin Concent 33.2 32.0-36.0 g/dL Red Cell Distribution Width 14.4 H 11.8-14.3 % Platelet Count 211 140-450 10^3/uL Mean Platelet Volume 9.3 6.9-10.8 fL Neutrophils (%) (Auto) 68.1 37.0-80.0 % Lymphocytes (%) (Auto) 25.6 10.0-50.0 % Monocytes (%) (Auto) 4.9 0.0-12.0 % Eosinophils (%) (Auto) 1.1 0.0-7.0 % Basophils (%) (Auto) 0.3 0.0-2.0 % Neutrophils # (Auto) 4.0 1.6-8.6 10 ^3/uL Lymphocytes # (Auto) 1.5 0.4-5.4 10 ^3/uL Monocytes # (Auto) 0.3 0-1.3 10 ^3/uL Eosinophils # (Auto) 0.1 0-0.8 10 ^3/uL Basophils # (Auto) 0 0-0.2 10 ^3/uL Nucleated Red Blood Cells 0.3 % Sodium Level 136 136-145 mmol/L Potassium Level 3.9 3.5-5.1 mmol/L Chloride Level 99 98-107 mmol/L Carbon Dioxide Level 25 20-31 mmol/L Anion Gap 12 5-15 Blood Urea Nitrogen 18 9-23 mg/dL Creatinine 1.31 H 0.700-1.30 mg/dL Glomerular Filtration Rate Calc 77 >90 mL/min BUN/Creatinine Ratio 13.7 10.0-20.0 Serum Glucose 117 H 74-106 mg/dL Calcium Level 9.2 8.7-10.4 mg/dL Magnesium Level 1.8 1.6-2.6 mg/dL Total Bilirubin 1.1 H 0.2-1.0 mg/dL Aspartate Amino Transferase (AST) 52 H 13-40 U/L Alanine Aminotransferase (ALT) 26 7-40 U/L Alkaline Phosphatase 147 H 46-116 U/L B-Type Natriuretic Peptide 1475.61 0-100 pg/mL Total Protein 6.7 5.7-8.2 g/dL Albumin 3.8 3.2-4.8 g/dL Assessment Acute kidney injury likely cardiorenal etiology Acute on chronic systolic chf exacerbation ef 5 Methamphetamine abuse SVT End-stage cardiomyopathy NSTEMI recs Agree with diuretics Lasix IV b.i.d. Renal function acceptable We will follow closely Plan discussed with: Patient MARGARET CAPPS MD Aug 31, 2025 20:04
--- NOTE | 2025-08-31 22:30 | DVHINCON2 ---
Date of service: Aug 31, 2025 Referring Physician Lee Reason for Consultation NSTEMI History of Present Illness This is a 25-year-old male with a PMH of Congestive heart failure who was brought in by EMS for a complaint of chest pains. Patient states he woke up from sleep due to sudden-onset shortness of breath, along with a left-sided chest pains. Patient admits that he drank 1 pint of Vodka yesterday, but denies using any methamphetamines. States he last used methamphetamines over a month ago when he got admitted here to [facility] previously. Troponin 953 > 903 > 232. Chest x-ray shows mild heart failure pattern. Patient was admitted to the hospital. I am asked to consult on this patient. Family History: Diabetes mellitus G8 FATHER Allergies: Coded Allergies: NO KNOWN ALLERGIES (Unverified , 11/18/15) Home Meds Unable to Obtain Active Prescriptions or Reported Meds Current Medications Current Medications Medications (Trade) Dose Ordered Sig/Chrystal Route PRN Reason Start Time Stop Time Status Last Admin Heparin Sodium/ Dextrose 250 ml @ 10 mls/hr Q24H IV 08/31/25 17:15 08/31/25 19:40 DC 08/31/25 17:15 Heparin Sodium/ Dextrose 250 ml @ 10 mls/hr Q24H IV 08/31/25 19:30 Review of Systems CONSTITUTIONAL: Denies acute: fever, diaphoresis, chills, HEAD: Denies acute: headache, photophobia Eyes: Denies acute: Double vision, vision loss, eye pain, eye discharge. EARS: Denies acute: tinnitus, hearing loss, ear discharge, ear pain, THROAT: Denies acute: sore throat, swelling, difficulty swallowing , pain with swallowing, change in voice. NECK: Denies acute: neck pain, neck swelling, stiff neck. HEART: Denies acute : chest pain, palpitations, LUNGS: Denies acute: wheezing, cough, hemoptysis ABDOMEN: Denies acute: abdominal pain, Nausea, Vomiting, diarrhea, melena , hematemesis, hematochezia SKIN: Denies acute: rash, redness, lesions, itchiness. EXTREMITIES: Denies acute: calf pain, numbness, tingling, weakness, denies pain in extremity. Denies acute: Low back pain. Neuro: Denies acute: focal neurological deficit, motor or sensory focal neurological deficit, tremors, seizure like activity, confusion, dizziness, change in mental status, loss of bowel or bladder function, cauda equina like symptoms. : Denies acute: dysuria, hematuria, flank pain, increase in urinary frequency. PSYCH: Denies acute: hallucination, suicidal ideation, homicidal ideation. Vital Signs Vital Signs Date Time Temp Pulse Resp B/P (MAP) Pulse Ox O2 Delivery O2 Flow Rate FiO2 08/31/25 17:32 97.6 110 20 102/54 (70) 97 97.6 08/31/25 08:00 Nasal Cannula* 2 28 Physical Exam GENERAL: Alert and oriented x 3. No acute distress. EYES: PERRL, EOMI. Anicteric. HENT: Moist mucous membranes. LUNGS: Clear to auscultation bilaterally. CARDIOVASCULAR: Regular rate and rhythm. ABDOMEN: Soft, nontender and nondistended. EXTREMITIES: No edema. NEUROLOGIC: No focal neurological deficits. SKIN: Warm, dry. Labs/Diagnostic Data Labs Test 08/31/25 18:16 08/30/25 22:36 08/30/25 07:57 08/30/25 06:24 Range/Units White Blood Count 5.3 4.4-10.8 10^3/uL Red Blood Count 4.66 4.5-5.90 10^6/uL Hemoglobin 14.3 13.5-17.5 g/dL Hematocrit 42.7 41.0-53.0 % Mean Corpuscular Volume 91.8 80.0-100.0 fL Mean Corpuscular Hemoglobin 30.8 28.0-32.0 pg Mean Corpuscular Hemoglobin Concent 33.6 32.0-36.0 g/dL Red Cell Distribution Width 14.7 H 11.8-14.3 % Platelet Count 211 140-450 10^3/uL Mean Platelet Volume 9.4 6.9-10.8 fL Neutrophils (%) (Auto) 55.8 37.0-80.0 % Lymphocytes (%) (Auto) 34.2 10.0-50.0 % Monocytes (%) (Auto) 7.3 0.0-12.0 % Eosinophils (%) (Auto) 2.0 0.0-7.0 % Basophils (%) (Auto) 0.7 0.0-2.0 % Neutrophils # (Auto) 3.0 1.6-8.6 10 ^3/uL Lymphocytes # (Auto) 1.8 0.4-5.4 10 ^3/uL Monocytes # (Auto) 0.4 0-1.3 10 ^3/uL Eosinophils # (Auto) 0.1 0-0.8 10 ^3/uL Basophils # (Auto) 0 0-0.2 10 ^3/uL Nucleated Red Blood Cells 0.3 % Prothrombin Time 13.1 H 9.3-11.8 sec Prothrombin Time INR 1.26 H 0.9-1.15 Activated Partial Thromboplast Time 27.2 24.5-34.5 SEC Troponin I High Sensitivity 232 *H </=54 ng/L Urine Opiates Screen Neg NEGATIVE Urine Fentanyl Screen Neg NEGATIVE Urine Barbiturates Screen Neg NEGATIVE Urine Phencyclidine Screen Neg NEGATIVE Urine Amphetamines Screen Pos NEGATIVE Urine Benzodiazepines Screen Neg NEGATIVE Urine Cocaine Screen Neg NEGATIVE Urine Cannabinoids Screen Neg NEGATIVE Lactic Acid Level 1.9 0.4-2.0 mmol/L Test 08/30/25 05:13 Range/Units Sodium Level 136 136-145 mmol/L Potassium Level 3.9 3.5-5.1 mmol/L Chloride Level 99 98-107 mmol/L Carbon Dioxide Level 25 20-31 mmol/L Anion Gap 12 5-15 Blood Urea Nitrogen 18 9-23 mg/dL Creatinine 1.31 H 0.700-1.30 mg/dL Glomerular Filtration Rate Calc 77 >90 mL/min BUN/Creatinine Ratio 13.7 10.0-20.0 Serum Glucose 117 H 74-106 mg/dL Calcium Level 9.2 8.7-10.4 mg/dL Magnesium Level 1.8 1.6-2.6 mg/dL Total Bilirubin 1.1 H 0.2-1.0 mg/dL Aspartate Amino Transferase (AST) 52 H 13-40 U/L Alanine Aminotransferase (ALT) 26 7-40 U/L Alkaline Phosphatase 147 H 46-116 U/L B-Type Natriuretic Peptide 1475.61 0-100 pg/mL Total Protein 6.7 5.7-8.2 g/dL Albumin 3.8 3.2-4.8 g/dL Assessment Chest pain rule. Acute on chronic CHF exacerbation. Methamphetamines abuse. Plan/Recommendation I agree with your ongoing assessment and care of plan. Echocardiogram. Morphine and Jasper for pain management. Diuretics with Lasix. Heparin drip per protocol. Nitro SL. Additional plan as per the hospital course. A total of 45 minutes was spent reviewing the patient record, examining the patient, making a diagnostic and therapeutic plan, discussing this plan with medical personnel, following up on diagnostic studies and following the patient for clinical stability excluding any and all procedures. At least 50% of this time was spent in direct, poku-[id number] contact. Plan discussed with: Patient AVELINO NUGENT MD Aug 31, 2025 22:13
[2025-09-01] VITALS (8 sets, daily range): BP systolic 97–115; BP diastolic 67–81; PULSE 73–103; RESP 16–20; TEMP 97–98.3; O2SAT 95–100
[2025-09-01 02:11] LABS: INR 1.29 (0.9-1.15); Partial Thromboplastin Time 37.1 SEC (24.5-34.5); Prothrombin Time 13.3 sec (9.3-11.8)
[2025-09-01] MEDS: HEPARIN DRIP/D5W 100UNITS/ML 250 ML IV SCH ×3 (02:32→22:36)
--- NOTE | 2025-09-01 07:20 | ECG ---
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
--- NOTE | 2025-09-01 09:29 | ECG ---
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
--- NOTE | 2025-09-01 09:29 | ECG ---
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
[2025-09-01 11:24] LABS: Hepatitis B Surface Antigen Negative (Negative)
[2025-09-01 11:30] LABS: Hematocrit 41.2 % (41.0-53.0); Hemoglobin 14.0 g/dL (13.5-17.5); Mean Corpuscular Hemoglobin 31.0 pg (28.0-32.0); Mean Corpuscular Volume 91.2 fL (80.0-100.0); Nucleated Red Blood Cells % 0.2 %
[2025-09-01 11:36] LABS: Hepatitis C Antibody Negative (Negative)
[2025-09-01 11:46] LABS: INR 1.29 (0.9-1.15); Partial Thromboplastin Time 43.7 SEC (24.5-34.5); Prothrombin Time 13.3 sec (9.3-11.8)
--- NOTE | 2025-09-01 12:21 | CONS ---
Pharmacy Clinical Information: HEPARIN PER ACS PROTOCOL: APTT result of 43.7 received from draw on 09/01 @1057. Increase rate 200 units per hour per PRx protocol. New rate is 1400 units per hour (14ml/hr). Orders read back and confirmed with CRISTA Chow @1150. Next APTT scheduled for 1800. TO [facility]LLOCK PHARMACIST Sep 01, 2025 12:21
[2025-09-01] MEDS: MORPHINE SULFATE INJ 2 MG/ml SYRG IV PRN (15:24)
--- NOTE | 2025-09-01 16:08 | DVHPN2 ---
Progress Note Date Seen: Sep 01, 2025 Medical Necessity Reason Pt with a Central, PICC or Fol: No Objective vital signs Vital Sign Date Time Temp Pulse Resp B/P (MAP) Pulse Ox O2 Delivery O2 Flow Rate FiO2 09/01/25 15:24 103 16 111/81 09/01/25 12:43 97.7 100 97.7 08/31/25 20:00 Nasal Cannula* 2 28 Total Intake and Output 08/31/25 08/31/25 09/01/25 14:59 22:59 06:59 Intake Total 105 ml 910 ml 320 ml Output Total 600 ml 340 ml Balance 105 ml 310 ml -20 ml medications Current Medications Medications Dose Ordered Sig/Chrystal Route Start Time Stop Time Status Last Admin Dose Admin Sodium Chloride 10 ml Q8HR IV 08/30/25 14:00 09/01/25 14:17 10 ML Docusate Sodium 100 mg BIDPRN PRN PO 08/30/25 09:00 Acetaminophen 650 mg Q6HP PRN PO 08/30/25 09:00 Acetaminophen/ Hydrocodone Bitart 1 tab Q4HP PRN PO 08/30/25 09:00 Hold Ondansetron HCl 4 mg Q4HP PRN IV 08/30/25 09:00 Nitroglycerin 0.4 mg Q5MINP PRN SL 08/30/25 09:00 Morphine Sulfate 2 mg Q30M PRN IV 08/30/25 09:00 Furosemide 40 mg BIDD IV 08/30/25 10:00 09/01/25 05:30 40 MG Heparin Sodium/ Dextrose 250 ml @ 14 mls/hr [id number] IV 09/01/25 12:00 09/01/25 12:03 14 MLS/HR Morphine Sulfate 2 mg Q4HPRN PRN IV 09/01/25 14:30 09/01/25 15:24 2 MG laboratory and microbiology Laboratory Tests 09/01/25 10:58 08/30/25 05:13 Test 08/30/25 05:13 Range/Units Serum Glucose 117 H 74-106 mg/dL Problem List/Assessment/Plan Problem List/Assessment/Plan Acute kidney injury likely cardiorenal etiology Acute on chronic systolic chf exacerbation ef 5 Methamphetamine abuse SVT End-stage cardiomyopathy NSTEMI no labs noted yesterday no labs today will order labs now vitals are stable troponins are elevated, will defer to cardiology currently on heparin drip Agree with diuretics Lasix IV b.i.d. Plan discussed with: Patient My Orders My Orders Orders - MARGIE ISAACS MD Procedure Category Date Status Time Basic Metabolic Panel LAB 09/02/25 Verified 04:00 Basic Metabolic Panel LAB 09/01/25 Verified 16:05 MARGIE ISAACS MD Sep 01, 2025 16:08
--- NOTE | 2025-09-01 18:23 | DVHPN2 ---
Subjective The patient is seen and examined at bedside. Very tired and sleepy today. He said the last time he used methamphetamine was three months ago Reviewed: Care Plan, H&P, Labs, Medications, Previous Orders, Radiology Changes from previous H/P or p: No Changes Objective Vitals Vital Signs Date Time Temp Pulse Resp B/P (MAP) Pulse Ox O2 Delivery O2 Flow Rate FiO2 09/01/25 17:00 97.4 103 16 111/81 (91) 97 97.4 09/01/25 08:00 Room Air* 0 21 Intake/Output Intake and Output 09/01/25 07:00 Intake Total 1335 ml Output Total 940 ml Balance 395 ml Intake Oral 1335 ml Output Urine Total 940 ml General Appearance: Alert, Cooperative, No acute distress HEENT: Atraumatic, PERRLA, EOMI, Mucous membr. moist/pink Neck: Supple Lungs: Clear to auscultation, Normal air movement Cardiovascular: Regular rate, Normal S1, Normal S2, No murmurs, Gallops, Rubs Abdomen: Normal bowel sounds, Soft, No tenderness Neuro: Cranial nerves 3-12 NL Psych/Mental Status: Mental status NL Medications Current Medications Medications Dose Ordered Sig/Chrystal Route Start Time Stop Time Status Last Admin Dose Admin Sodium Chloride 10 ml Q8HR IV 08/30/25 14:00 09/01/25 14:17 10 ML Docusate Sodium 100 mg BIDPRN PRN PO 08/30/25 09:00 Acetaminophen 650 mg Q6HP PRN PO 08/30/25 09:00 Acetaminophen/ Hydrocodone Bitart 1 tab Q4HP PRN PO 08/30/25 09:00 Hold Ondansetron HCl 4 mg Q4HP PRN IV 08/30/25 09:00 Nitroglycerin 0.4 mg Q5MINP PRN SL 08/30/25 09:00 Morphine Sulfate 2 mg Q30M PRN IV 08/30/25 09:00 Furosemide 40 mg BIDD IV 08/30/25 10:00 09/01/25 05:30 40 MG Heparin Sodium/ Dextrose 250 ml @ 14 mls/hr [id number] IV 09/01/25 12:00 09/01/25 12:03 14 MLS/HR Morphine Sulfate 2 mg Q4HPRN PRN IV 09/01/25 14:30 09/01/25 15:24 2 MG Laboratory Results Laboratory Tests 09/01/25 10:58 Chemistry Test 09/01/25 18:03 Calcium Level Pending Coagulation Test 09/01/25 01:28 09/01/25 10:57 09/01/25 18:03 Prothrombin Time 13.3 sec (9.3-11.8) H 13.3 sec (9.3-11.8) H Pending Prothrombin Time INR 1.29 (0.9-1.15) H 1.29 (0.9-1.15) H Pending Activated Partial Thromboplast Time 37.1 SEC (24.5-34.5) H 43.7 SEC (24.5-34.5) H Pending Labs and/or images reviewed: Labs reviewed by me Assessment/Plan Assessment/Plan Chest pain rule out ACS Acute on chronic CHF exacerbation Methamphetamines abuse Alcohol abuse Plan Continuing current management. Waiting for 2D echo Continuing Lasix 40 mg b.i.d. Continue heparin drip Waiting for reading aide to see the patient Counseled the patient to stop drinking more than 12 minutes Also counseled The patient to stop using methamphetamine more than 15 minutes This medical document was created using an electronic medical record system with [employer] direct computerized dictation system. Although this document has been carefully reviewed, there may still be some phonetic and typographical errors. These areas are purely typographical due to imperfections of the software programs, and do not reflect any compromise in the patient's medical care. Plan discussed with: Patient, Other (mother) My Orders Orders - JORDON ORTIZ MD Procedure Category Date Status Time Morphine Sulfate PHA 09/01/25 In Process Injection 14:30 Complete Blood Count LAB 09/02/25 Verified 05:00 Complete Blood Count LAB 09/03/25 Verified 05:00 Complete Blood Count LAB 09/04/25 Verified 05:00 Complete Blood Count LAB 09/05/25 Verified 05:00 Complete Blood Count LAB 09/06/25 Verified 05:00 Basic Metabolic Panel LAB 09/02/25 Verified 05:00 Basic Metabolic Panel LAB 09/03/25 Verified 05:00 Basic Metabolic Panel LAB 09/04/25 Verified 05:00 Basic Metabolic Panel LAB 09/05/25 Verified 05:00 Basic Metabolic Panel LAB 09/06/25 Verified 05:00 Date of Service: Sep 01, 2025 Billing Provider: JORDON ORTIZ MD Common Visit Codes: [id number] INP/OBS CARE(HIGH) JORDON ORTIZ MD Sep 01, 2025 18:23
[2025-09-01 18:29] LABS: Potassium 4.2 mmol/L (3.5-5.1); Sodium 137 mmol/L (136-145)
[2025-09-01 18:30] LABS: Anion Gap 12 (5-15); Calcium 9.1 mg/dL (8.7-10.4); Carbon Dioxide 28 mmol/L (20-31)
[2025-09-01 18:35] LABS: BUN/Creatinine Ratio 17.4 (10.0-20.0); Blood Urea Nitrogen 21 mg/dL (9-23)
[2025-09-01 18:38] LABS: INR 1.25 (0.9-1.15); Partial Thromboplastin Time 33.6 SEC (24.5-34.5); Prothrombin Time 13.0 sec (9.3-11.8)
[2025-09-01 18:55] LABS: Chloride 97 mmol/L (98-107); Glucose 134 mg/dL (74-106)
[2025-09-01] MEDS: HEPARIN SODIUM (PORCINE) 5000 UNITS/ML 1ML VIAL IV ONE (22:35)
--- NOTE | 2025-09-01 23:53 | DVHPN2 ---
Progress Note - Dictate Date Seen: Sep 01, 2025 Medical Necessity Reason Pt with a Central, PICC or Fol: No Subjective Patient was seen and evaluated in follow up. Patient is complaining of left sided chest pain. Patient appears tired today. Patient remains on heparin drip. CBC is WNL. Telemetry reviewed. vital signs Vital Sign Date Time Temp Pulse Resp B/P (MAP) Pulse Ox O2 Delivery O2 Flow Rate FiO2 09/01/25 21:00 98.0 91 16 101/67 (78) 95 98.0 09/01/25 20:00 Room Air* 0 21 Total Intake and Output 08/31/25 08/31/25 09/01/25 15:00 23:00 07:00 Intake Total 105 ml 910 ml 320 ml Output Total 600 ml 340 ml Balance 105 ml 310 ml -20 ml medications Current Medications Medications Dose Ordered Sig/Chrystal Route Start Time Stop Time Status Last Admin Dose Admin Sodium Chloride 10 ml Q8HR IV 08/30/25 14:00 09/01/25 22:00 10 ML Docusate Sodium 100 mg BIDPRN PRN PO 08/30/25 09:00 Acetaminophen 650 mg Q6HP PRN PO 08/30/25 09:00 Acetaminophen/ Hydrocodone Bitart 1 tab Q4HP PRN PO 08/30/25 09:00 Hold Ondansetron HCl 4 mg Q4HP PRN IV 08/30/25 09:00 Nitroglycerin 0.4 mg Q5MINP PRN SL 08/30/25 09:00 Morphine Sulfate 2 mg Q30M PRN IV 08/30/25 09:00 Furosemide 40 mg BIDD IV 08/30/25 10:00 09/01/25 18:23 40 MG Morphine Sulfate 2 mg Q4HPRN PRN IV 09/01/25 14:30 09/01/25 20:05 2 MG Heparin Sodium/ Dextrose 250 ml @ 17 mls/hr [id number] IV 09/01/25 22:30 09/01/25 22:36 17 MLS/HR objective GENERAL: Alert and oriented x 3. No acute distress. EYES: PERRL, EOMI. Anicteric. HENT: Moist mucous membranes. LUNGS: Clear to auscultation bilaterally. CARDIOVASCULAR: Regular rate and rhythm. ABDOMEN: Soft, nontender and nondistended. EXTREMITIES: No edema. NEUROLOGIC: No focal neurological deficits. SKIN: Warm, dry. laboratory and microbiology Laboratory Tests 09/01/25 18:03 09/01/25 10:58 Test 09/01/25 18:03 Range/Units Serum Glucose 134 H 74-106 mg/dL Problem List Chest pain. Acute on chronic CHF exacerbation. Methamphetamines abuse. Assessment/Plan Continued all current supportive medical care. Echocardiogram. Morphine and [place] for pain management. Diuretics with Lasix. Heparin drip per protocol. Nitro SL. Additional plan as per the hospital course. Plan discussed with: Patient AVELINO NUGENT MD Sep 01, 2025 23:53
[2025-09-02 01:00] VITALS: BP 126/64; PULSE 108; RESP 18; TEMP 97.8; O2SAT 96
[2025-09-02 05:00] VITALS: BP 96/60; PULSE 128; RESP 18; TEMP 97.5; O2SAT 95
[2025-09-02 05:00] LABS: Hematocrit 41.6 % (41.0-53.0); Hemoglobin 14.2 g/dL (13.5-17.5); Mean Corpuscular Hemoglobin 31.1 pg (28.0-32.0); Mean Corpuscular Volume 91.3 fL (80.0-100.0); Nucleated Red Blood Cells % 0.1 %
[2025-09-02 05:11] LABS: Potassium 3.9 mmol/L (3.5-5.1); Sodium 138 mmol/L (136-145)
[2025-09-02 05:12] LABS: Anion Gap 9 (5-15); Calcium 9.1 mg/dL (8.7-10.4)
[2025-09-02 05:17] LABS: BUN/Creatinine Ratio 14.4 (10.0-20.0); Blood Urea Nitrogen 16 mg/dL (9-23); Glucose 92 mg/dL (74-106)
[2025-09-02 05:18] LABS: Carbon Dioxide 31 mmol/L (20-31); Chloride 98 mmol/L (98-107)
[2025-09-02 05:25] LABS: INR 1.36 (0.9-1.15); Prothrombin Time 14.0 sec (9.3-11.8)
[2025-09-02 05:33] LABS: Partial Thromboplastin Time 131.7 SEC (24.5-34.5)
[2025-09-02] MEDS: HEPARIN DRIP/D5W 100UNITS/ML 250 ML IV SCH (06:44)
[2025-09-02 08:00] VITALS: PULSE 83; RESP 15
[2025-09-02 09:00] VITALS: BP 105/71; PULSE 92; RESP 15; TEMP 97.8; O2SAT 97
--- NOTE | 2025-09-02 11:25 | DVHPN2 ---
Progress Note Date Seen: Sep 02, 2025 Medical Necessity Reason Pt with a Central, PICC or Fol: No Objective vital signs Vital Sign Date Time Temp Pulse Resp B/P (MAP) Pulse Ox O2 Delivery O2 Flow Rate FiO2 09/02/25 09:00 97.8 92 15 105/71 (82) 97 97.8 09/02/25 08:00 Room Air* 0 21 Total Intake and Output 09/01/25 09/01/25 09/02/25 15:00 23:00 07:00 Intake Total 750 ml 700 ml Output Total 1600 ml Balance -850 ml 700 ml medications Current Medications Medications Dose Ordered Sig/Chrystal Route Start Time Stop Time Status Last Admin Dose Admin Sodium Chloride 10 ml Q8HR IV 08/30/25 14:00 09/02/25 05:41 10 ML Docusate Sodium 100 mg BIDPRN PRN PO 08/30/25 09:00 Acetaminophen 650 mg Q6HP PRN PO 08/30/25 09:00 Acetaminophen/ Hydrocodone Bitart 1 tab Q4HP PRN PO 08/30/25 09:00 Hold Ondansetron HCl 4 mg Q4HP PRN IV 08/30/25 09:00 Nitroglycerin 0.4 mg Q5MINP PRN SL 08/30/25 09:00 Morphine Sulfate 2 mg Q30M PRN IV 08/30/25 09:00 Furosemide 40 mg BIDD IV 08/30/25 10:00 09/02/25 05:42 40 MG Morphine Sulfate 2 mg Q4HPRN PRN IV 09/01/25 14:30 09/01/25 20:05 2 MG Heparin Sodium/ Dextrose 250 ml @ 14 mls/hr [id number] IV 09/02/25 06:45 09/02/25 06:44 14 MLS/HR Examination: GENERAL:Normal, CVS:Normal laboratory and microbiology Laboratory Tests 09/02/25 04:38 Test 09/02/25 04:38 Range/Units Serum Glucose 92 74-106 mg/dL Problem List/Assessment/Plan Problem List/Assessment/Plan Acute kidney injury likely cardiorenal etiology Acute on chronic systolic chf exacerbation ef 5 Methamphetamine abuse SVT End-stage cardiomyopathy NSTEMI labs yesterday and today reviewed Ct resolved stable from renal standpoint convert lasix to po today vitals are stable troponins are elevated, will defer to cardiology currently on heparin drip Plan discussed with: Patient MARGIE ISAACS MD Sep 02, 2025 11:25
--- NOTE | 2025-09-02 12:19 | DVHPN2 ---
Subjective The patient is seen and examined at bedside. Very tired and sleepy today. He said the last time he used methamphetamine was three months ago Reviewed: Care Plan, H&P, Labs, Medications, Previous Orders, Radiology Objective Vitals Vital Signs Date Time Temp Pulse Resp B/P (MAP) Pulse Ox O2 Delivery O2 Flow Rate FiO2 09/02/25 09:00 97.8 92 15 105/71 (82) 97 97.8 09/02/25 08:00 Room Air* 0 21 Intake/Output Intake and Output 09/02/25 07:00 Intake Total 1450 ml Output Total 1600 ml Balance -150 ml Intake Oral 1450 ml Output Urine Total 1600 ml General Appearance: Alert, Cooperative, No acute distress HEENT: Atraumatic, PERRLA, EOMI, Mucous membr. moist/pink Neck: Supple Lungs: Clear to auscultation, Normal air movement Cardiovascular: Regular rate, Normal S1, Normal S2, No murmurs, Gallops, Rubs Abdomen: Normal bowel sounds, Soft, No tenderness Neuro: Cranial nerves 3-12 NL Psych/Mental Status: Mental status NL Medications Current Medications Medications Dose Ordered Sig/Chrystal Route Start Time Stop Time Status Last Admin Dose Admin Sodium Chloride 10 ml Q8HR IV 08/30/25 14:00 09/02/25 05:41 10 ML Docusate Sodium 100 mg BIDPRN PRN PO 08/30/25 09:00 Acetaminophen 650 mg Q6HP PRN PO 08/30/25 09:00 Acetaminophen/ Hydrocodone Bitart 1 tab Q4HP PRN PO 08/30/25 09:00 Hold Ondansetron HCl 4 mg Q4HP PRN IV 08/30/25 09:00 Nitroglycerin 0.4 mg Q5MINP PRN SL 08/30/25 09:00 Morphine Sulfate 2 mg Q30M PRN IV 08/30/25 09:00 Morphine Sulfate 2 mg Q4HPRN PRN IV 09/01/25 14:30 09/01/25 20:05 2 MG Heparin Sodium/ Dextrose 250 ml @ 14 mls/hr [id number] IV 09/02/25 06:45 09/02/25 06:44 14 MLS/HR Furosemide 40 mg BIDD PO 09/02/25 18:00 Laboratory Results Laboratory Tests 09/02/25 04:38 Chemistry Test 09/01/25 18:03 09/02/25 04:38 Calcium Level 9.1 mg/dL (8.7-10.4) 9.1 mg/dL (8.7-10.4) Coagulation Test 09/01/25 18:03 09/02/25 04:38 Prothrombin Time 13.0 sec (9.3-11.8) H 14.0 sec (9.3-11.8) H Prothrombin Time INR 1.25 (0.9-1.15) H 1.36 (0.9-1.15) H Activated Partial Thromboplast Time 33.6 SEC (24.5-34.5) 131.7 SEC (24.5-34.5) *H Assessment/Plan Assessment/Plan Chest pain rule out ACS Acute on chronic CHF exacerbation Methamphetamines abuse Alcohol abuse Plan Continuing current management. Waiting for 2D echo Continuing Lasix 40 mg b.i.d. Continue heparin drip Waiting for shotgun shell assembly machine adjuster to see the patient Counseled the patient to stop drinking more than 12 minutes Also counseled The patient to stop using methamphetamine more than 15 minutes This medical document was created using an electronic medical record system with [employer] direct computerized dictation system. Although this document has been carefully reviewed, there may still be some phonetic and typographical errors. These areas are purely typographical due to imperfections of the software programs, and do not reflect any compromise in the patient's medical care. My Orders Orders - JORDON ORTIZ MD Procedure Category Date Status Time Morphine Sulfate PHA 09/01/25 In Process Injection 14:30 Complete Blood Count LAB 09/03/25 Verified 05:00 Complete Blood Count LAB 09/04/25 Verified 05:00 Complete Blood Count LAB 09/05/25 Verified 05:00 Complete Blood Count LAB 09/06/25 Verified 05:00 Basic Metabolic Panel LAB 09/03/25 Verified 05:00 Basic Metabolic Panel LAB 09/04/25 Verified 05:00 Basic Metabolic Panel LAB 09/05/25 Verified 05:00 Basic Metabolic Panel LAB 09/06/25 Verified 05:00 JORDON ORTIZ MD Sep 02, 2025 12:19
[2025-09-02 13:00] VITALS: BP 110/73; PULSE 75; RESP 16; TEMP 97.7; O2SAT 94
--- NOTE | 2025-09-02 14:36 | DVHPN2 ---
Consult Progress Note Date Seen: Sep 02, 2025 Subjective Review of Systems: CVS:Normal, RESPIRATORY:Normal, NEURO:Normal Objective vital signs Vital Sign Date Time Temp Pulse Resp B/P (MAP) Pulse Ox O2 Delivery O2 Flow Rate FiO2 09/02/25 09:00 97.8 92 15 105/71 (82) 97 97.8 09/02/25 08:00 Room Air* 0 21 Total Intake and Output 09/01/25 09/01/25 09/02/25 15:00 23:00 07:00 Intake Total 750 ml 700 ml Output Total 1600 ml Balance -850 ml 700 ml medications Current Medications Medications Dose Ordered Sig/Chrystal Route Start Time Stop Time Status Last Admin Dose Admin Sodium Chloride 10 ml Q8HR IV 08/30/25 14:00 09/02/25 05:41 10 ML Docusate Sodium 100 mg BIDPRN PRN PO 08/30/25 09:00 Acetaminophen 650 mg Q6HP PRN PO 08/30/25 09:00 Acetaminophen/ Hydrocodone Bitart 1 tab Q4HP PRN PO 08/30/25 09:00 Hold Ondansetron HCl 4 mg Q4HP PRN IV 08/30/25 09:00 Nitroglycerin 0.4 mg Q5MINP PRN SL 08/30/25 09:00 Morphine Sulfate 2 mg Q30M PRN IV 08/30/25 09:00 Morphine Sulfate 2 mg Q4HPRN PRN IV 09/01/25 14:30 09/01/25 20:05 2 MG Heparin Sodium/ Dextrose 250 ml @ 14 mls/hr [id number] IV 09/02/25 06:45 09/02/25 06:44 14 MLS/HR Furosemide 40 mg BIDD PO 09/02/25 18:00 Examination: LUNGS:Normal, CVS:Normal, NEURO:Normal laboratory and microbiology Laboratory Tests 09/02/25 04:38 Test 09/02/25 04:38 Range/Units Serum Glucose 92 74-106 mg/dL Problem List/Assessment/Plan Problem List/Assessment/Plan Acute on chronic decompensated HFrEF, NTHA Class IV NSTEMI, likely type II secondary to above 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 Severe global hypokinesis of all cardiac chambers. Severe MR/TR. End stage dilated cardiomyopathy * Twelve-lead electrocardiogram revealed sinus tachycardia suggestive of left ventricular hypertrophy and non-specific T-wave inversion to lateral leads * Troponin levels peaked at 1,001 ng/L. Initially placed on heparin drip Plan (Dr. Donnelly) Discontinue heparin drip, NSTEMI Type II. Initiate GDMT for HFrEF and titrate as tolerated, mineralocorticoid held secondary to borderline BP. In the meantime continue BB, ACEI, and SGLT2i. Continue preload reduction with Lasix. Conversation held with patient and mother over the phone per patient's request. Stated the patient has a follow-up with primary tools administrator at [facility] on 09/05/2025. Recommendations given by primary tools administrator included a Dependency Course Program and to stay drug/alcohol free for 6 months in order to qualify to be a candidate for a heart transplant. The patient also reported a lapse on home medications as he was not able to refill them on time. Strongly advised on medical compliance and risk factor modifications. There is no further cardiac work-up indicated at this time. Kindly call with any questions or concerns. This medical document was created using an electronic medical record system with voice recognition software and computerized dictation system. Although this document has been carefully reviewed, there might still be some phonetic and typographical errors. Occasional wrong-word or ``sound-alike substitutions may have occurred due to the inherent limitations of voice recognition software. These areas are purely typographical due to imperfections of the software programs and do not reflect any compromise in the patient's medical care. Please read the chart carefully and recognize, using context, where these substitutions have occurred. Plan discussed with: Patient, Other (mother over the phone) Date of Service: Sep 02, 2025 Billing Provider: FELICIANO WOODY Cardiology Common Codes: 02642-[id number] FELICIANO WOODY Sep 02, 2025 14:36
--- NOTE | 2025-09-02 16:23 | DVHDS2 ---
Discharge Summary Date of Admission Aug 30, 2025 at 08:53 Date of Discharge: Sep 02, 2025 Admitting Diagnosis Chest pain rule out ACS Acute on chronic CHF exacerbation Methamphetamines abuse Alcohol abuse Labs/Diagnostic Data: Laboratory Results Test 09/02/25 13:12 09/02/25 04:38 08/31/25 18:16 08/30/25 22:36 Activated Partial Thromboplast Time 55.2 SEC (24.5-34.5) White Blood Count 5.2 10^3/uL (4.4-10.8) Red Blood Count 4.56 10^6/uL (4.5-5.90) Hemoglobin 14.2 g/dL (13.5-17.5) Hematocrit 41.6 % (41.0-53.0) Mean Corpuscular Volume 91.3 fL (80.0-100.0) Mean Corpuscular Hemoglobin 31.1 pg (28.0-32.0) Mean Corpuscular Hemoglobin Concent 34.0 g/dL (32.0-36.0) Red Cell Distribution Width 14.6 % (11.8-14.3) Platelet Count 196 10^3/uL (140-450) Mean Platelet Volume 9.6 fL (6.9-10.8) Neutrophils (%) (Auto) 48.6 % (37.0-80.0) Lymphocytes (%) (Auto) 42.1 % (10.0-50.0) Monocytes (%) (Auto) 7.1 % (0.0-12.0) Eosinophils (%) (Auto) 1.5 % (0.0-7.0) Basophils (%) (Auto) 0.7 % (0.0-2.0) Neutrophils # (Auto) 2.5 10 ^3/uL (1.6-8.6) Lymphocytes # (Auto) 2.2 10 ^3/uL (0.4-5.4) Monocytes # (Auto) 0.4 10 ^3/uL (0-1.3) Eosinophils # (Auto) 0.1 10 ^3/uL (0-0.8) Basophils # (Auto) 0 10 ^3/uL (0-0.2) Nucleated Red Blood Cells 0.1 % Prothrombin Time 14.0 sec (9.3-11.8) Prothrombin Time INR 1.36 (0.9-1.15) Sodium Level 138 mmol/L (136-145) Potassium Level 3.9 mmol/L (3.5-5.1) Chloride Level 98 mmol/L (98-107) Carbon Dioxide Level 31 mmol/L (20-31) Anion Gap 9 (5-15) Blood Urea Nitrogen 16 mg/dL (9-23) Creatinine 1.11 mg/dL (0.700-1.30) Glomerular Filtration Rate Calc 93 mL/min (>90) BUN/Creatinine Ratio 14.4 (10.0-20.0) Serum Glucose 92 mg/dL (74-106) Calcium Level 9.1 mg/dL (8.7-10.4) Troponin I High Sensitivity 232 ng/L (</=54) Hepatitis B Surface Antigen Negative (Negative) Hepatitis C Antibody Negative (Negative) Test 08/30/25 07:57 08/30/25 06:24 08/30/25 05:13 Urine Opiates Screen Neg (NEGATIVE) Urine Fentanyl Screen Neg (NEGATIVE) Urine Barbiturates Screen Neg (NEGATIVE) Urine Phencyclidine Screen Neg (NEGATIVE) Urine Amphetamines Screen Pos (NEGATIVE) Urine Benzodiazepines Screen Neg (NEGATIVE) Urine Cocaine Screen Neg (NEGATIVE) Urine Cannabinoids Screen Neg (NEGATIVE) Lactic Acid Level 1.9 mmol/L (0.4-2.0) Magnesium Level 1.8 mg/dL (1.6-2.6) Total Bilirubin 1.1 mg/dL (0.2-1.0) Aspartate Amino Transferase (AST) 52 U/L (13-40) Alanine Aminotransferase (ALT) 26 U/L (7-40) Alkaline Phosphatase 147 U/L (46-116) B-Type Natriuretic Peptide 1475.61 pg/mL (0-100) Total Protein 6.7 g/dL (5.7-8.2) Albumin 3.8 g/dL (3.2-4.8) Other Laboratory Tests 09/02/25 04:38 Brief Hx & Hospital Course: This is a 25 years old male come into emergency department because severe chest pain. The patient states that he woke up with a sudden onset of shortness for breath and left-sided chest pain. Patient apparently had drink a pt of vodka one day prior to the admission. Patient used to use methamphetamine however give up about a month prior to this admission. Apparently patient was diagnosis with severe cardiomyopathy with systolic congestive heart failure. Patient did not know what is his ejection fraction. He was treated at [place] in was sent home with medications. The patient troponin level was elevated in the 900s range. The patient was admitted. The patient was given IV Lasix for bilateral pleural effusions. The patient on heparin drip. The patient was counseled to stop drinking alcohol and also stop using methamphetamine in length more than 30 minutes. The patient was seen by packing line worker, Dr. Donnelly. No further intervention. Dr. Donnelly recommend continuing current management as outpatient and recommended to see his packing line worker next week at [place] per schedule. The patient was on lisinopril, metoprolol, and Jardiance in the hospital and also as outpatient. The patient did not have any alcohol withdrawal in the hospital. Follow up with primary care physician 1-2 weeks. Activity as tolerated. Diet per home diet. Recommend low-salt low-cholesterol diet Physical exam: HEENT: Normocephalic atraumatic pupils equal react to light and accommodation. Extraocular muscles intact, conjunctiva pink, oropharynx moist, no thrush, no exudate. Lymphatic: No lymphadenopathy Cardiovascular exam: S1, S2 was heard. No murmurs, rubs, gallops Lung: Clear on auscultation bilaterally, no wheeze, rale, rhonchi. GI: Abdominal soft, nondistended, nontenderness, positive bowel sounds. Extremity: No crepitus, cyanosis, edema. Pedal pulses present bilateral. Full range of motion. Skin: Normal turgor, no rash. Psych: Alert, oriented x3. Neurology: No focal deficits, cranial nerve II to XII grossly intact. This medical document was created using an electronic medical record system with [employer] direct computerized dictation system. Although this document has been carefully reviewed, there may still be some phonetic and typographical errors. These areas are purely typographical due to imperfections of the software programs, and do not reflect any compromise in the patient's medical care. Condition at Discharge: Stable Final Diagnosis/Problems List Chest pain probably secondary to NSTEMI type 2 Acute on chronic CHF exacerbation Methamphetamines abuse Alcohol abuse Discharge Disposition: Home Discharge Instruct/Medications Diet: Cardiac 2g Na,low cholest Activity: No Restrictions, As Tolerated Follow Up/Referral: pcp 1-2 weeks packing line worker at [place] per schedule No Active Prescriptions or Reported Meds Discharge Statement: "Patient was advised to return to the ER or call 911 if any headaches, dizziness, shortness of breath, chest pain, abdominal pain, bleeding, fevers, or worsening of medical condition. Patient was counseled about treatment plan, medications, possible side effects, patientverbalized understanding. All questions were answered to the best of my ability. This discharge took greater then 30 minutes in planning, reviewing documentation, counseling the patient, and discussing with other team members." ASSESSMENT ASSESSMENT Assessment chest pain Date of Service: Sep 02, 2025 Billing Provider: JORDON ORTIZ MD Common Visit Codes: 86075-EIM/OBS DISCH DAY >30min JORDON ORTIZ MD Sep 02, 2025 16:23
[2025-09-02] MEDS: METOPROLOL TARTRATE 25 MG TAB PO ONE (16:36)
[2025-09-02] MEDS: LISINOPRIL 5 MG TAB PO ONE (16:37)
[2025-09-02 17:00] VITALS: BP 121/85; PULSE 106; RESP 16; TEMP 97; O2SAT 95
[2025-09-02] MEDS ORDERED: FUROSEMIDE 20 MG TAB PO SCH (18:00)
[2025-09-02] MEDS ORDERED: METOPROLOL TARTRATE 25 MG TAB PO SCH (22:00)
--- NOTE | 2025-09-02 23:11 | DVHPN2 ---
Progress Note - Dictate Date Seen: Sep 02, 2025 Medical Necessity Reason Pt with a Central, PICC or Fol: No Subjective Patient was seen and evaluated in follow up. Patient is complaining of persistent left sided chest pain. Echocardiogram showed an EF of 5%. Heparin drip can be discontinued. Telemetry reviewed. vital signs Vital Sign Date Time Temp Pulse Resp B/P (MAP) Pulse Ox O2 Delivery O2 Flow Rate FiO2 09/02/25 09:00 97.8 92 15 105/71 (82) 97 97.8 09/02/25 08:00 Room Air* 0 21 Total Intake and Output 09/01/25 09/01/25 09/02/25 15:00 23:00 07:00 Intake Total 750 ml 700 ml Output Total 1600 ml Balance -850 ml 700 ml medications Current Medications Medications Dose Ordered Sig/Chrystal Route Start Time Stop Time Status Last Admin Dose Admin Sodium Chloride 10 ml Q8HR IV 08/30/25 14:00 09/02/25 05:41 10 ML Docusate Sodium 100 mg BIDPRN PRN PO 08/30/25 09:00 Acetaminophen 650 mg Q6HP PRN PO 08/30/25 09:00 Acetaminophen/ Hydrocodone Bitart 1 tab Q4HP PRN PO 08/30/25 09:00 Hold Ondansetron HCl 4 mg Q4HP PRN IV 08/30/25 09:00 Nitroglycerin 0.4 mg Q5MINP PRN SL 08/30/25 09:00 Morphine Sulfate 2 mg Q30M PRN IV 08/30/25 09:00 Morphine Sulfate 2 mg Q4HPRN PRN IV 09/01/25 14:30 09/01/25 20:05 2 MG Furosemide 40 mg BIDD PO 09/02/25 18:00 Metoprolol Tartrate 12.5 mg BID PO 09/02/25 22:00 UNV Empaglifozin 10 mg DAILY PO 09/03/25 10:00 UNV Lisinopril 2.5 mg DAILY PO 09/03/25 10:00 UNV objective GENERAL: Alert and oriented x 3. No acute distress. EYES: PERRL, EOMI. Anicteric. HENT: Moist mucous membranes. LUNGS: Clear to auscultation bilaterally. CARDIOVASCULAR: Regular rate and rhythm. ABDOMEN: Soft, nontender and nondistended. EXTREMITIES: No edema. NEUROLOGIC: No focal neurological deficits. SKIN: Warm, dry. laboratory and microbiology Laboratory Tests 09/02/25 04:38 Test 09/02/25 04:38 Range/Units Serum Glucose 92 74-106 mg/dL Problem List Acute on chronic decompensated HFrEF, NTHA Class IV. NSTEMI, likely type II secondary to above. 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 Severe mitral/tricuspid valve regurgitation. History of supraventricular tachycardia. Recent history of apical thrombus (07/2025). Recent history of alcohol abuse. Acute amphetamine intoxication. Prediabetes. Medical non-compliance. Assessment/Plan Continued all current supportive medical care. Patient has been seen by Pily Rodriguez NP on my behalf, her and I discussed the plan with the patient. Transthoracic echocardiogram revealed LVEF only at 5%. Severe global hypokinesis of all cardiac chambers. Severe MR/TR. End stage dilated cardiomyopathy. Twelve-lead electrocardiogram revealed sinus tachycardia suggestive of left ventricular hypertrophy and non-specific T-wave inversion to lateral leads. Troponin levels peaked at 1,001 ng/L. Initially placed on heparin drip. Discontinue heparin drip, NSTEMI Type II. Initiate GDMT for HFrEF and titrate as tolerated, mineralocorticoid held secondary to borderline BP. In the meantime continue BB, ACEI, and SGLT2i. Continue preload reduction with Lasix. Conversation held with patient and mother over the phone per patient's request. Stated the patient has a follow-up with primary type proof reproducer at [facility] on 09/05/2025. Recommendations given by primary type proof reproducer included a Dependency Course Program and to stay drug/alcohol free for 6 months in order to qualify to be a candidate for a heart transplant. The patient also reported a lapse on home medications as he was not able to refill them on time. Strongly advised on medical compliance and risk factor modifications. Additional plan as per the hospital course. Visit Coding Cardiology Date of Service: Sep 02, 2025 Billing Provider: AVELINO NUGENT MD Cardiology Common Codes: [id number] Plan discussed with: Patient AVELINO NUGENT MD Sep 02, 2025 14:26
[2025-09-03] MEDS ORDERED: LISINOPRIL 5 MG TAB PO SCH (10:00)
[2025-09-03] MEDS ORDERED: EMPAGLIFLOZIN 10 MG TAB PO SCH (10:00)
== END 2025-09-02 18:22 | disposition home or self-care (01) | DRG 194 ==
LOC: EDBD 04:29 → ER 04:29 → OVERFLOW 08:53 → TELE-WESTW 21:22
PROVIDERS: ADMIT Internal Medicine; ATTEND Internal Medicine
DX: I50.23 Acute on chronic systolic (congestive) heart failure (principal); N17.0 Acute kidney failure with tubular necrosis; I21.A1 Myocardial infarction type 2; F15.129 Other stimulant abuse with intoxication, unspecified; F10.10 Alcohol abuse, uncomplicated; Y90.9 Presence of alcohol in blood, level not specified; I42.0 Dilated cardiomyopathy; Z83.3 Family history of diabetes mellitus; Z91.199 Patient's noncompliance with other medical treatment and regimen due to unspecified reason; Z79.899 Other long term (current) drug therapy
CPT/HCPCS: 36415; 71045; 76775; 80048; 80053; 80307; 83605; 83735; 83880; 84484; 85025; 85610; 85730; 86803; 87340; 93005; 93306; 96374; 99291; G0378

== ENCOUNTER 2025-09-04 20:53 | Inpatient (IN) | payer MEDICAID ==
[~2025-09-04] VITALS: Ht 172.7 cm; Wt 78.5 kg
[2025-09-04 04:59] VITALS: PULSE 90; RESP 18; O2SAT 94
[2025-09-04 21:12] VITALS: BP 103/66; PULSE 80; RESP 16; TEMP 98.6; O2SAT 94
--- NOTE | 2025-09-04 21:12 | ED.PDOC ---
History of Present Illness HPI Comments 25-year-old male who came to ER via EMS for chest pains. Patient was discharged here 2 days ago diagnosed with 1. Chest pain probably secondary to NSTEMI type 2, 2. Acute on chronic CHF exacerbation, 3. Methamphetamines abuse, 4. Alcohol abuse. 1 hour ago, patient developed sudden onset left-sided chest pains, sharp, constant, nonradiating, 10/10 intensity. Patient took aspirin before calling paramedics. REVIEW OF SYSTEMS: General: No fever, no chills, or fatigue HEENT: No sore throat, no earache, no congestion, no neck pain. Cardiac: (+) chest pain. No palpitations. Lungs: No shortness of breath, no cough. GI: No nausea, no vomiting, no diarrhea, no constipation, no abdominal pain : No dysuria, frequency, or urgency. No hematuria. Musculoskeletal: No joint pain , no joint swelling, no extremity edema. Skin: No rash, no itching. Neuro: No headache, no dizziness, no weakness EXAM: General: Awake, alert and oriented. No acute distress. Skin: Skin in warm, dry and intact. Appropriate color for ethnicity. HEENT: The head is normocephalic and atraumatic. Conjunctivae are clear without exudates or hemorrhage. Sclera is non-icteric. EOM are intact. No signs of nystagmus. Eyelids are normal in appearance without swelling or lesions. Oral mucosa is pink and moist Neck: The neck is supple with normal range of motion. No JVD. Cardiac: Heart rate and rhythm are normal. No murmurs, gallops, or rubs are auscultated. Respiratory: No signs of respiratory distress. Lung sounds are clear in all lobes bilaterally without rales, rhonchi, or wheezes. Abdominal: Abdomen is soft, non-tender without distention. Bowel sounds are present and normoactive in all four quadrants. Extremities: Upper and lower extremities are atraumatic in appearance without deformity or edema. Neurological: The patient is awake, alert and oriented to person, place, and time with normal speech. Speech is clear. There is no facial asymmetry. Psychiatric: Appropriate mood and affect. Good judgement and insight Chief Complaint: Chest Pain Time Seen by MD: 21:12 Primary Care Provider: NONE Reviewed Notes: [place] Hand Notes Allergies: Coded Allergies: NO KNOWN ALLERGIES (Unverified , 2/3/16) Home Meds No Active Prescriptions or Reported Meds Information Source: Patient, Emergency Med Personnel Mode of Arrival: EMS Severity: Moderate Timing: Minutes Duration: Since onset Prehospital treatment: NTG, Oxygen Past Medical History PAST MEDICAL HISTORY: CHF, [place] Surgical History: Denies all surgeries Family History Family History: Family hx of DM Social History Smoker: Non-Smoker Alcohol: Occasionally Drugs: Methamphetamine Lives In: Home Was a procedure done? Was a procedure done?: No Differential Dx Considerations may include: Anemia, electrolyte imbalance, chest pain, CHF, LA X-Ray, Labs, Meds, VS Vital Signs Date Time Temp Pulse Resp B/P (MAP) Pulse Ox O2 Delivery O2 Flow Rate FiO2 09/05/25 00:21 111/64 09/05/25 00:00 85 09/04/25 23:59 80 09/04/25 23:09 101/55 09/04/25 22:31 87 09/04/25 22:06 97 12 111/75 09/04/25 21:36 98 12 105/74 09/04/25 21:22 97.8 100 17 105/74 (84) 97 97.8 09/04/25 21:22 98 Nasal Cannula* 2 28 09/04/25 21:04 96 09/04/25 20:53 98.3 96 20 109/78 99 98.3 Lab Test 09/05/25 00:08 09/04/25 21:51 09/04/25 21:01 Range/Units Troponin I High Sensitivity Pending 47 42 </=54 ng/L White Blood Count 4.9 4.4-10.8 10^3/uL Red Blood Count 4.39 L 4.5-5.90 10^6/uL Hemoglobin 13.6 13.5-17.5 g/dL Hematocrit 40.2 L 41.0-53.0 % Mean Corpuscular Volume 91.6 80.0-100.0 fL Mean Corpuscular Hemoglobin 31.1 28.0-32.0 pg Mean Corpuscular Hemoglobin Concent 33.9 32.0-36.0 g/dL Red Cell Distribution Width 15.2 H 11.8-14.3 % Platelet Count 229 140-450 10^3/uL Mean Platelet Volume 9.9 6.9-10.8 fL Neutrophils (%) (Auto) 68.6 37.0-80.0 % Lymphocytes (%) (Auto) 21.6 10.0-50.0 % Monocytes (%) (Auto) 7.6 0.0-12.0 % Eosinophils (%) (Auto) 1.6 0.0-7.0 % Basophils (%) (Auto) 0.6 0.0-2.0 % Neutrophils # (Auto) 3.4 1.6-8.6 10 ^3/uL Lymphocytes # (Auto) 1.1 0.4-5.4 10 ^3/uL Monocytes # (Auto) 0.4 0-1.3 10 ^3/uL Eosinophils # (Auto) 0.1 0-0.8 10 ^3/uL Basophils # (Auto) 0 0-0.2 10 ^3/uL Nucleated Red Blood Cells 0.2 % Sodium Level 140 136-145 mmol/L Potassium Level 3.8 3.5-5.1 mmol/L Chloride Level 99 98-107 mmol/L Carbon Dioxide Level 27 20-31 mmol/L Anion Gap 14 5-15 Blood Urea Nitrogen 21 9-23 mg/dL Creatinine 1.26 0.700-1.30 mg/dL Glomerular Filtration Rate Calc 80 >90 mL/min BUN/Creatinine Ratio 16.7 10.0-20.0 Serum Glucose 105 74-106 mg/dL Calcium Level 9.2 8.7-10.4 mg/dL B-Type Natriuretic Peptide 1271.56 0-100 pg/mL Current Medications Medications (Trade) Dose Ordered Sig/Chrystal Route Start Time Stop Time Status Last Admin Morphine Sulfate 2 mg ONCE ONCE IV 09/04/25 21:15 09/04/25 21:16 DC 09/04/25 21:36 Fentanyl Citrate 25 mcg ONCE ONCE IV 09/04/25 23:00 09/04/25 23:26 DC 09/04/25 23:09 Fentanyl Citrate 25 mcg ONCE ONCE IV 09/05/25 00:15 09/05/25 00:16 DC 09/05/25 00:21 Time of 1ST Reevaluation: 21:06 Reevaluation 1ST: Unchanged Patient Education/Counseling: Need For Follow Up Family Education/Counseling: No Family Present SEPSIS Sepsis Screen Physician Orders Electrocardigram (09/04/25 22:11) Electrocardigram (09/05/25 00:11) Chest Xray 1 View (09/04/25 21:11) Vital Signs Q1HR (09/04/25 21:11) Saline Lock (09/04/25 21:11) Court Deputy (09/04/25 ) Troponin-I Hs (09/05/25 00:11) Vital Signs Date Time Temp Pulse Resp B/P (MAP) Pulse Ox O2 Delivery O2 Flow Rate FiO2 09/05/25 00:21 111/64 09/05/25 00:00 85 09/04/25 23:59 80 09/04/25 23:09 101/55 09/04/25 22:31 87 09/04/25 22:06 97 12 111/75 09/04/25 21:36 98 12 105/74 09/04/25 21:22 97.8 100 17 105/74 (84) 97 97.8 09/04/25 21:22 98 Nasal Cannula* 2 28 09/04/25 21:04 96 09/04/25 20:53 98.3 96 20 109/78 99 98.3 Laboratory Tests Test 09/04/25 21:01 White Blood Count 4.9 10^3/uL (4.4-10.8) Medications Medications Dose Ordered Sig/Chrystal Route Start Time Stop Time Status Last Admin Dose Admin Fentanyl Citrate 25 mcg ONCE ONCE IV 09/04/25 23:00 09/04/25 23:26 DC 09/04/25 23:09 Fentanyl Citrate 25 mcg ONCE ONCE IV 09/05/25 00:15 09/05/25 00:16 DC 09/05/25 00:21 Morphine Sulfate 2 mg ONCE ONCE IV 09/04/25 21:15 09/04/25 21:16 DC 09/04/25 21:36 Departure 1 Departure Time of Disposition: 00:34 Impression: Primary Impression: Chest pain Disposition: ADMITTED INPATIENT Condition: Stable e-Prescriptions No Active Prescriptions or Reported Meds Comments 25-year-old male with cardiomyopathy chest pain. Patient reports continued chest pain throughout the ED observation. Patient admitted to hospitalist service for further treatment, evaluation and monitoring. Critical Care Note Critical Care Time?: No Stability Stability form required: No Heart Score Heart Score: Heart Score Response (Comments) Value History N/A 0 EKG N/A 0 Age N/A 0 Risk Factors N/A 0 Troponin N/A 0 Total 0 I personally scribed for NICOLE BRAGA MD ([email or web address]) on 09/04/25 at 21:12. Electronically submitted by Ben Dubon ([email or web address]). NICOLE BRAGA MD Sep 04, 2025 21:12
[2025-09-04 21:22] VITALS: O2SAT 98
[2025-09-04 21:28] LABS: Hematocrit 40.2 % (41.0-53.0); Hemoglobin 13.6 g/dL (13.5-17.5); Mean Corpuscular Hemoglobin 31.1 pg (28.0-32.0); Mean Corpuscular Volume 91.6 fL (80.0-100.0); Nucleated Red Blood Cells % 0.2 %
[2025-09-04 21:35] LABS: Chloride 99 mmol/L (98-107); Potassium 3.8 mmol/L (3.5-5.1); Sodium 140 mmol/L (136-145)
[2025-09-04 21:36] LABS: Anion Gap 14 (5-15); Calcium 9.2 mg/dL (8.7-10.4); Carbon Dioxide 27 mmol/L (20-31)
[2025-09-04] MEDS: MORPHINE SULFATE INJ 2 MG/ml SYRG IV ONE (21:36)
[2025-09-04 21:41] LABS: BUN/Creatinine Ratio 16.7 (10.0-20.0); Blood Urea Nitrogen 21 mg/dL (9-23); Glucose 105 mg/dL (74-106)
--- NOTE | 2025-09-04 21:51 | DVH ---
CHEST RADIOGRAPH Indication: cp Technique: Single frontal view of the chest was obtained. Comparison: XY CHEST PORTABLE on DOS: 08/30/25 Findings: Mild pulmonary vascular congestion. No significant pleural effusion. No pneumothorax. Mildly enlarged cardiomediastinal silhouette. IMPRESSION: Mild pulmonary vascular congestion.
[2025-09-04] MEDS: fentaNYL CITRATE 5 ML ONE (23:09)
[2025-09-04] MEDS: fentaNYL CITRATE 100 MCG/2 ML VL IV ONE (23:09)
[2025-09-05] VITALS (7 sets, daily range): BP systolic 107–125; BP diastolic 69–94; PULSE 78–99; RESP 17–20; TEMP 97.3–98.2; O2SAT 94–98
--- NOTE | 2025-09-05 00:01 | ECG ---
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
[2025-09-05] MEDS: fentaNYL CITRATE 100 MCG/2 ML VL IV ONE (00:21)
--- NOTE | 2025-09-05 00:47 | DVHHPRES ---
History of Present Illness Resident Creating Document: BRI FINE RESIDENT History of Present Illness John Guevara, 25-year-old male with past medical history of systolic heart failure with ejection fraction 5%, methamphetamine in and marijuana abuse presented to the ER with a left-sided chest pain, no relation with breathing, sh harish in nature. The pain was gradual onset since last few hours. He also reports having shortness of breaths, improves on sitting up and worsens while lying down. He denies any fever, sick contacts or any other complaints. He does not require home oxygen. 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 Past medical history: As above Past surgical history: Right tibia fibula fracture Home medications: Digoxin, Farxiga, spironolactone, Xarelto Drug allergies: None Smokin pack years, quit now Drug abuse: Methamphetamine, marijuana Alcohol: Occasionally Code status: Revisit later, patient is unsure Review of Systems Respiratory: Shortness of breath Cardiovascular: Chest Pain Allergies: Coded Allergies: NO KNOWN ALLERGIES (Unverified , 11/18/15) Exam Vital Signs Vital Signs Date Time Temp Pulse Resp B/P (MAP) Pulse Ox O2 Delivery O2 Flow Rate FiO2 09/05/25 00:21 111/64 09/05/25 00:00 82 13 99 09/04/25 21:22 97.8 97.8 09/04/25 21:22 Nasal Cannula* 2 28 Exam Pt is lying on bed General Appearance: Alert, Oriented X3, Cooperative, Mild distress HEENT: Atraumatic, Mucous membranes moist/pink Respiratory: Clear to auscultation, Normal air movement, No added sounds Cardiovascular: Regular rate, Normal S1, Normal S2, No murmurs Abdominal/ : Active bowel sounds, Soft, no distention, no tenderness Extremities: No edema, Normal pulses, No tenderness/swelling Skin: No Significant rash, except past surgical scars Neuro: Normal speech, sensorimotor deficits none Psych/Mental Status: Mental status NL, Mood NL Nurse was there as test man during examination Labs/Xrays Labs Test 09/05/25 00:08 09/04/25 21:01 Range/Units White Blood Count 4.9 4.4-10.8 10^3/uL Red Blood Count 4.39 L 4.5-5.90 10^6/uL Hemoglobin 13.6 13.5-17.5 g/dL Hematocrit 40.2 L 41.0-53.0 % Mean Corpuscular Volume 91.6 80.0-100.0 fL Mean Corpuscular Hemoglobin 31.1 28.0-32.0 pg Mean Corpuscular Hemoglobin Concent 33.9 32.0-36.0 g/dL Red Cell Distribution Width 15.2 H 11.8-14.3 % Platelet Count 229 140-450 10^3/uL Mean Platelet Volume 9.9 6.9-10.8 fL Neutrophils (%) (Auto) 68.6 37.0-80.0 % Lymphocytes (%) (Auto) 21.6 10.0-50.0 % Monocytes (%) (Auto) 7.6 0.0-12.0 % Eosinophils (%) (Auto) 1.6 0.0-7.0 % Basophils (%) (Auto) 0.6 0.0-2.0 % Neutrophils # (Auto) 3.4 1.6-8.6 10 ^3/uL Lymphocytes # (Auto) 1.1 0.4-5.4 10 ^3/uL Monocytes # (Auto) 0.4 0-1.3 10 ^3/uL Eosinophils # (Auto) 0.1 0-0.8 10 ^3/uL Basophils # (Auto) 0 0-0.2 10 ^3/uL Nucleated Red Blood Cells 0.2 % Sodium Level 140 136-145 mmol/L Potassium Level 3.8 3.5-5.1 mmol/L Chloride Level 99 98-107 mmol/L Carbon Dioxide Level 27 20-31 mmol/L Anion Gap 14 5-15 Blood Urea Nitrogen 21 9-23 mg/dL Creatinine 1.26 0.700-1.30 mg/dL Glomerular Filtration Rate Calc 80 >90 mL/min BUN/Creatinine Ratio 16.7 10.0-20.0 Serum Glucose 105 74-106 mg/dL Calcium Level 9.2 8.7-10.4 mg/dL B-Type Natriuretic Peptide 1271.56 0-100 pg/mL SEPSIS Sepsis Screen Date sepsis recognized/suspect: Sep 04, 2025 Time Sepsis recognized/suspect: 2121 Recent Procedure: No On Antibiotic Therapy: No Respiratory Rate >20: No Heart Rate >90: Yes Temp<36 C (96.8 F) or >38.3 C: No SBP <90 or MAP <65 mmHG: No New Acute Mental Status Change: No Is the patient on CPAP, BIPAP,: No Physician Orders Electrocardigram (09/04/25 22:11) Electrocardigram (09/05/25 00:11) Chest Xray 1 View (09/04/25 21:11) Vital Signs Q1HR (09/04/25 21:11) Saline Lock (09/04/25 21:11) Information Systems Supervisor (09/04/25 ) Troponin-I Hs (09/05/25 00:11) Vital Signs Date Time Temp Pulse Resp B/P (MAP) Pulse Ox O2 Delivery O2 Flow Rate FiO2 09/05/25 00:21 111/64 09/05/25 00:00 82 13 111/64 (80) 99 09/05/25 00:00 85 09/04/25 23:59 80 09/04/25 23:09 101/55 09/04/25 22:31 87 09/04/25 22:06 97 12 111/75 09/04/25 22:00 97 12 111/75 (87) 99 09/04/25 21:36 98 12 105/74 09/04/25 21:22 97.8 100 17 105/74 (84) 97 97.8 09/04/25 21:22 98 Nasal Cannula* 2 28 09/04/25 21:04 96 09/04/25 20:53 98.3 96 20 109/78 99 98.3 Laboratory Tests Test 09/04/25 21:01 White Blood Count 4.9 10^3/uL (4.4-10.8) Medications Medications Dose Ordered Sig/Chrystal Route Start Time Stop Time Status Last Admin Dose Admin Fentanyl Citrate 25 mcg ONCE ONCE IV 09/04/25 23:00 09/04/25 23:26 DC 09/04/25 23:09 25 MCG Fentanyl Citrate 25 mcg ONCE ONCE IV 09/05/25 00:15 09/05/25 00:16 DC 09/05/25 00:21 25 MCG Morphine Sulfate 2 mg ONCE ONCE IV 09/04/25 21:15 09/04/25 21:16 DC 09/04/25 21:36 2 MG Assessment/Plan Assessment/Plan Acute on chronic decompensated HFrEF, NTHA Class IV NSTEMI, likely type II secondary to above 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 -transthoracic echo: LV ejection fraction only at 5%. Severe global hypokinesis of all cardiac chambers. Severe MR/TR. End-stage dilated cardiomyopathy. -Twelve lead EKG revealed sinus tachycardia suggestive of LVH and repolarization abnormalities. -Troponin levels peaked at 42. -therapeutic Lovenox started due to recent history of apical thrombus (patient was taking Xarelto at home) Recent history of alcohol abuse Acute amphetamine intoxication Patient was counseled regarding cessation Prediabetes Hemoglobin A1c 07/16/2025: 5.8 Counseled regarding healthy lifestyle modifications Medication noncompliance Counseled regarding the importance of medication compliance GI prophylaxis: Pantoprazole DVT prophylaxis: Lovenox Diet: Cardiac Goals of care discussed with the patient for more than 27 minutes: Full code status Case discussed with , patient and RN Plan discussed with: Patient, Other (RN) Date of Service: Sep 05, 2025 Billing Provider: BART MATTHEWS MD Common Visit Codes: 19486-GGO/OBS SAME DATE (HIGH) Secondary Visit Codes: 77136-YFZXOOMX CARE PLAN 30 MINUTES BRI FINE RESIDENT Sep 05, 2025 00:47 DIANNE JERONIMO RESIDENT Sep 05, 2025 05:19
--- NOTE | 2025-09-05 00:49 | ECG ---
[facility] Test Date: 2025-09-04 Test Time: 21:04:03 Pat Name: GABI HANNA Department: ED Room: 0286T Gender: M Manager Personal: LUDY : 2000 Requested By: NICOLE BRAGA Order Number: [id number] Reading MD: Nas Sullivan Measurements Intervals [place] Rate: 96 P: 52 [place]: 174 QRS: 64 QRSD: 102 T: 255 QT: 373 QTc: 472 Interpretive Statements Sinus rhythm Ventricular premature complex Left atrial enlargement Nonspecific repol abnormality, diffuse leads Borderline prolonged QT interval Electronically Signed On 09-05-2025 9:10:43 PST by Nas Sullivan Please click the below link to view image of tracing.
[2025-09-05] MEDS: ENOXAPARIN SOD 80 MG/0.8ML SYRINGE SC SCH (04:53)
[2025-09-05] MEDS: MORPHINE SULFATE INJ 2 MG/ml SYRG IM ONE ×2 (05:00→06:02)
[2025-09-05] MEDS: MORPHINE SULFATE INJ 2 MG/ml SYRG ONE ×2 (05:49→06:41)
[2025-09-05] MEDS: FUROSEMIDE 40 MG/4 ML VIAL IV SCH (05:57)
[2025-09-05] MEDS ORDERED: FUROSEMIDE 40 MG/4 ML VIAL IV SCH (06:00)
[2025-09-05] MEDS: MORPHINE SULFATE INJ 2 MG/ml SYRG IV ONE (06:46)
[2025-09-05] MEDS: DIGOXIN 0.125 MG TAB PO SCH (09:45)
[2025-09-05] MEDS: ATORVASTATIN 20 MG TAB PO ONE (09:46)
[2025-09-05 09:48] LABS: Opiate Scree,Urine Neg (NEGATIVE)
[2025-09-05 09:53] LABS: Amphetamine Screen, Urine Neg (NEGATIVE); Barbiturate Scree,Urine Neg (NEGATIVE); Benzodiazephine Screen, Urine Neg (NEGATIVE); Cannabinoid Screen, Urine Neg (NEGATIVE); Cocaine Screen, Urine Neg (NEGATIVE); Phencyclidine Screen, Urine Neg (NEGATIVE)
[2025-09-05] MEDS ORDERED: ENOXAPARIN SOD 80 MG/0.8ML SYRINGE SC SCH (10:00)
--- NOTE | 2025-09-05 10:07 | ECG ---
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
[2025-09-05 10:08] LABS: Urine Protein, UAD Negative (Negative)
[2025-09-05] MEDS ORDERED: ACETAMINOPHEN 325 MG TAB PO PRN (10:15)
[2025-09-05 12:14] LABS: Hematocrit 43.3 % (41.0-53.0); Hemoglobin 14.4 g/dL (13.5-17.5); Mean Corpuscular Hemoglobin 30.9 pg (28.0-32.0); Mean Corpuscular Volume 92.7 fL (80.0-100.0); Nucleated Red Blood Cells % 0.1 %
[2025-09-05 12:31] LABS: INR 1.49 (0.9-1.15); Partial Thromboplastin Time 31.7 SEC (24.5-34.5); Prothrombin Time 15.2 sec (9.3-11.8)
[2025-09-05] MEDS: HEPARIN SODIUM (PORCINE) 5000 UNITS/ML 1ML VIAL ONE (14:54)
[2025-09-05] MEDS: HEPARIN SODIUM (PORCINE) 5000 UNITS/ML 1ML VIAL IV ONE (14:58)
[2025-09-05] MEDS: HEPARIN DRIP/D5W 100UNITS/ML 250 ML IV SCH ×2 (14:59→23:26)
[2025-09-05] MEDS ORDERED: DAPA1TAB4 PO (16:09)
[2025-09-05] MEDS ORDERED: SPIR25TA8 PO (16:10)
[2025-09-05] MEDS ORDERED: NITROGLYCERIN 2.5 MG CAP PO PRN (17:15)
--- NOTE | 2025-09-05 17:45 | DVHINCON2 ---
Date Seen: Sep 05, 2025 Referring Physician MD Angie Reason for Consultation NSTEMI History of Present Illness This is a 25-year-old male patient who presents to emergency room with chief complaint of chest pain since last night. He describes the pain as unprovoked, intermittent, sharp in nature, left-sided and nonradiating. He denies any associated symptoms. Cardiology has been consulted at this time for elevated troponin level. Initial twelve lead electrocardiogram reveals normal sinus rhythm with diffuse ST segment depression and PVCs. Initial troponin level of 42ng/L with significant up trend and current peak level of 6545ng/L. Significant past medical history includes end-stage cardiomyopathy, apical thrombus, supraventricular tachycardia, polysubstance use and alcohol abuse. The patient was scheduled to follow up with his drag out worker at [facility] today. Past Medical History Past medical history reviewed. No other significant than mentioned above. Past Surgical History Tibia and fibula repair Family History: Diabetes mellitus G8 FATHER, Onset:40's - 50 Family History Family history reviewed. Social History Patient admits to drinking a fifth of vodka per day. States that his last drink was one month ago. The patient admits to vaping nicotine daily Patient has recent toxicology screening positive for amphetamines and fentanyl Allergies: Coded Allergies: NO KNOWN ALLERGIES (Unverified , 11/18/15) Home Meds Reported Medications Spironolactone (Spironolactone) 25 Mg Tab, 1 TAB PO DAILY 09/05/25 Dapagliflozin Propanediol (Farxiga) 10 Mg Tab, 1 TAB PO DAILY 09/05/25 Home Meds Home medications reviewed. Current Medications Current Medications Medications (Trade) Dose Ordered Sig/Chrystal Route PRN Reason Start Time Stop Time Status Last Admin Furosemide (Lasix Injection) 40 mg BIDD IV 09/05/25 06:00 09/05/25 01:29 DC Enoxaparin Sodium (Lovenox) 80 mg Q12HR SC 09/05/25 10:00 09/05/25 01:29 DC Furosemide (Lasix Injection) 40 mg BIDD IV 09/05/25 06:00 Enoxaparin Sodium (Lovenox) 80 mg Q12H SC 09/05/25 02:00 09/05/25 16:08 DC 09/05/25 04:53 Digoxin (Lanoxin Tablet) 0.125 mg DAILY PO 09/05/25 10:00 09/05/25 09:45 Acetaminophen (Tylenol Tablet) 650 mg Q4HP PRN PO PAIN SCALE 1-3 OR TEMP>100.4 09/05/25 10:15 Heparin Sodium/ Dextrose 250 ml @ 9 mls/hr Q24H IV 09/05/25 15:00 09/05/25 14:59 Atorvastatin Calcium (Lipitor) 80 mg HS PO 09/06/25 22:00 Aspirin 81 mg DAILY PO 09/06/25 10:00 Spironolactone (Aldactone) 25 mg DAILY PO 09/06/25 10:00 Morphine Sulfate 2 mg Q4HPRN PRN IV SEVERE PAIN (7-10 PAIN SCALE) 09/05/25 17:15 Nitroglycerin (Nitro-Bid Capsule) 2.5 mg TID PRN PO FOR CHEST PAIN 09/05/25 17:15 Review of Systems Constitutional: No symptom reported Ears, Nose, & Throat: No symptom reported Eyes: No symptom reported Neurological: No symptoms reported Pulmonary/Respiratory: No symptoms reported Cardiovascular: Chest pain Gastrointestinal: No symptom reported Genitourinary: No symptom reported Musculoskeletal: No symptom reported Skin: No symptom reported Psychiatric: No symptom reported Endocrine: No symptom reported Hematologic/Lymphatic: No symptom reported Vital Signs Vital Signs Date Time Temp Pulse Resp B/P (MAP) Pulse Ox O2 Delivery O2 Flow Rate FiO2 09/05/25 16:49 97.8 83 20 109/69 (82) 95 97.8 09/05/25 08:00 Room Air* 0 21 Physical Exam General Appearance: Cooperative. Well-developed. Well-nourished. No acute distress. Pulmonary/Respiratory: Clear, bilateral breaths sounds. Cardiovascular/Chest: Regular rate and rhythm. Peripheral Pulses: 2+ Radial (R). 2+ Radial (L). 2+ Pedal (R). 2+ Pedal (L) Abdominal Exam: Normal bowel sounds. Ankle Exam: Negative ankle edema Lower extremities: Negative lower extremity edema Neuro/Mental Status: A/OX4, coherent. Thoughts/Psych: Normal thought pattern. Appropriate mood and affect. Good judgment and insight. Appearance: No acute distress. Skin Exam: Normal inspection. Normal color. Warm and dry. Labs/Diagnostic Data Labs Test 09/05/25 13:30 09/05/25 09:49 09/05/25 09:35 09/05/25 09:23 Range/Units Plasma/Serum Blood Alcohol < 3.0 <10 mg/dL Troponin I High Sensitivity 6545 *H </=54 ng/L Influenza Type A Antigen Negative Negative Influenza Type B Antigen Negative Negative Urine Color Light-yellow Yellow Urine Clarity Clear Clear Urine pH 5.5 5.0-9.0 Urine Specific [place] 1.016 1.001-1.035 Urine Protein Negative Negative Urine Ketones Negative Negative Urine Blood Negative Negative /uL Urine Nitrite Negative Negative Urine Bilirubin Negative Negative Urine Urobilinogen Normal Negative mg/dL Urine Leukocyte Esterase 1+ Negative /uL Urine RBC 1 0 - 3 /hpf Urine Microscopic WBC 28 H 0-3 /HPF Urine Squamous Epithelial Cells None seen <5 /hpf Urine Bacteria None seen None Seen /hpf Urine Glucose 4+ H Normal mg/dL Urine Opiates Screen Neg NEGATIVE Urine Fentanyl Screen Pos NEGATIVE Urine Barbiturates Screen Neg NEGATIVE Urine Phencyclidine Screen Neg NEGATIVE Urine Amphetamines Screen Neg NEGATIVE Urine Benzodiazepines Screen Neg NEGATIVE Urine Cocaine Screen Neg NEGATIVE Urine Cannabinoids Screen Neg NEGATIVE Test 09/05/25 08:50 09/04/25 21:01 Range/Units White Blood Count 4.6 4.4-10.8 10^3/uL Red Blood Count 4.67 4.5-5.90 10^6/uL Hemoglobin 14.4 13.5-17.5 g/dL Hematocrit 43.3 41.0-53.0 % Mean Corpuscular Volume 92.7 80.0-100.0 fL Mean Corpuscular Hemoglobin 30.9 28.0-32.0 pg Mean Corpuscular Hemoglobin Concent 33.3 32.0-36.0 g/dL Red Cell Distribution Width 15.2 H 11.8-14.3 % Platelet Count 235 140-450 10^3/uL Mean Platelet Volume 10.5 6.9-10.8 fL Neutrophils (%) (Auto) 57.6 37.0-80.0 % Lymphocytes (%) (Auto) 33.1 10.0-50.0 % Monocytes (%) (Auto) 6.7 0.0-12.0 % Eosinophils (%) (Auto) 2.2 0.0-7.0 % Basophils (%) (Auto) 0.4 0.0-2.0 % Neutrophils # (Auto) 2.7 1.6-8.6 10 ^3/uL Lymphocytes # (Auto) 1.5 0.4-5.4 10 ^3/uL Monocytes # (Auto) 0.3 0-1.3 10 ^3/uL Eosinophils # (Auto) 0.1 0-0.8 10 ^3/uL Basophils # (Auto) 0 0-0.2 10 ^3/uL Nucleated Red Blood Cells 0.1 % Prothrombin Time 15.2 H 9.3-11.8 sec Prothrombin Time INR 1.49 H 0.9-1.15 Activated Partial Thromboplast Time 31.7 24.5-34.5 SEC Sodium Level 140 136-145 mmol/L Potassium Level 3.8 3.5-5.1 mmol/L Chloride Level 99 98-107 mmol/L Carbon Dioxide Level 27 20-31 mmol/L Anion Gap 14 5-15 Blood Urea Nitrogen 21 9-23 mg/dL Creatinine 1.26 0.700-1.30 mg/dL Glomerular Filtration Rate Calc 80 >90 mL/min BUN/Creatinine Ratio 16.7 10.0-20.0 Serum Glucose 105 74-106 mg/dL Calcium Level 9.2 8.7-10.4 mg/dL B-Type Natriuretic Peptide 1271.56 0-100 pg/mL Assessment NSTEMI Acute on chronic decompensated HFrEF, NYHA Class III 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 Sullivan): Case reviewed and discussed with . A recent transthoracic echocardiogram done on 08/30/2025 reveals an EF of 5% with severe global hypokinesis of all cardiac chambers. Initiate guideline directed medical therapy for CHF as tolerated. Continue with preload and afterload reduction. Strict intake and output, daily weights, maintain fluid restriction. The patient is noted to have a significant up trend in troponin level with current level of 6545ng/L. Given the patients noncompliance and active drug use, he is not an ideal candidate for any invasive procedures at this time. The patient has been referred to [facility] where he states he was supposed to follow up today for a further plan of action. Recommendations given by primary drag out worker included a Dependency Course Program and to stay drug/alcohol free for 6 months in order to qualify to be a candidate for a heart transplant. The patient also reported a lapse on home medications as he was not able to refill them on time. Strongly advised on medical compliance and risk factor modifications. Continue with close cardiac surveillance. Thank you for allowing us to care for this patient. Please call with any questions or concerns. Critical care time spent: 44 minutes This medical document was created using an electronic medical record system with voice recognition software and computerized dictation system. Although this document has been carefully reviewed, there might still be some phonetic and typographical errors. Occasional wrong-word or ``sound-alike substitutions may have occurred due to the inherent limitations of voice recognition software. These areas are purely typographical due to imperfections of the software programs and do not reflect any compromise in the patient's medical care. Please read the chart carefully and recognize, using context, where these substitutions have occurred. Plan discussed with: Patient NYHA Physical activity limitations: Class3(Marked) ordinary (activity causes symtoms) Date of Service: Sep 05, 2025 Billing Provider: ZELALEM LUONG Cardiology Common Codes: 65740-[id number] INP/OBS CARE (High) Cardiology Consultation Codes: [id number] CONSULT <45MIN ZELALEM LUONG Sep 05, 2025 17:45
[2025-09-05] MEDS: MORPHINE SULFATE 4 MG/ML SYR/VIAL ONE (18:36)
[2025-09-05] MEDS: MORPHINE SULFATE 4 MG/ML SYR/VIAL IV PRN (18:44)
--- NOTE | 2025-09-05 19:21 | DVHPNRES ---
Progress Note Date Seen: Sep 05, 2025 Resident Creating Document: ENRRIQUE HOFFMAN RESIDENT Medical Necessity Reason Pt with a Central, PICC or Fol: No Subjective Review of Systems John Guevara is a 25-year-old male with past medical history of systolic heart failure with ejection fraction 5%, methamphetamine and marijuana abuse, who presented to the ED with the chief complaint of left-sided chest pain, unprovoked, sharp and nonradiating. He mentioned it was associated with tightness in the chest. He reported shortness of breath improves on sitting up and worsens on lying down. He does not use home oxygen. He denies any fever, chills or sick contacts in the last few days. He was recently hospitalized discharged on 09/02/2025, when he was diagnosed with acute congestive heart failure with ejection fraction 5%. Initial twelve lead electrocardiogram reveals normal sinus rhythm with diffuse ST segment depression and PVCs. Initial troponin level of 42ng/L with significant up trend and current peak level of 6545ng/L. Significant past medical history includes end-stage cardiomyopathy, apical thrombus, supraventricular tachycardia, polysubstance use and alcohol abuse. The patient was scheduled to follow up with his curator natural history museum at [facility] today. Past medical history : Systolic heart failure with ejection fraction 5%, apical thrombus Past surgical history: Home medications: Digoxin, Farxiga, spironolactone, Xarelto Social & Personal history: Lives at home with family, mentions methamphetamine use, alcohol abuse, UA positive for fentanyl Allergies: No known allergies Patient seen and examined at bedside. Patient is alert and oriented to time, place person and responding to all questions. Eyes: No Pain, No Vision change, No Conjunctivae inflammation, No Eyelid inflammation, No Redness ENT: No Ear pain, No Ear discharge, No Nose pain, No Nose discharge, No Nose congestion, No Mouth pain, No Mouth swelling, No Throat pain, No Throat swelling Cardiovascular: No Chest Pain, No Palpitations, No Orthopnea, No Paroxysmal No Dyspnea, No Edema, No Lt Headedness Respiratory: No Cough, No Dry, No Shortness of breath, No SOB with exertion, No Wheezing, No Hemoptysis, No Pleuritic Pain, No Sputum Gastrointestinal: No Nausea, No Vomiting, No Abdominal Pain, No Diarrhea, No Constipation, No Melena, No Hematochezia Genitourinary: No Dysuria, No Frequency, No Incontinence, No Hematuria, No Retention Objective vital signs Vital Sign Date Time Temp Pulse Resp B/P (MAP) Pulse Ox O2 Delivery O2 Flow Rate FiO2 09/05/25 18:44 92 18 111/74 09/05/25 16:49 97.8 95 97.8 09/05/25 08:00 Room Air* 0 21 Total Intake and Output 09/04/25 09/04/25 09/05/25 15:00 23:00 07:00 Intake Total 0 ml Balance 0 ml medications Current Medications Medications Dose Ordered Sig/Chrystal Route Start Time Stop Time Status Last Admin Dose Admin Furosemide 40 mg BIDD IV 09/05/25 06:00 09/05/25 18:43 40 MG Digoxin 0.125 mg DAILY PO 09/05/25 10:00 09/05/25 09:45 0.125 MG Acetaminophen 650 mg Q4HP PRN PO 09/05/25 10:15 Heparin Sodium/ Dextrose 250 ml @ 9 mls/hr Q24H IV 09/05/25 15:00 09/05/25 14:59 9 MLS/HR Atorvastatin Calcium 80 mg HS PO 09/06/25 22:00 Aspirin 81 mg DAILY PO 09/06/25 10:00 Spironolactone 25 mg DAILY PO 09/06/25 10:00 Morphine Sulfate 2 mg Q4HPRN PRN IV 09/05/25 17:15 09/05/25 18:44 2 MG Nitroglycerin 2.5 mg TID PRN PO 09/05/25 17:15 Metoprolol Succinate 25 mg DAILY PO 09/06/25 10:00 UNV Lisinopril 2.5 mg DAILY PO 09/06/25 10:00 UNV Empaglifozin 10 mg DAILY PO 09/06/25 10:00 UNV Examination General Appearance: Cooperative. Well developed. Well nourished. NAD Head Exam: Normal inspection Neck Exam: Normal inspection. Non-tender. Normal alignment Pulmonary/Respiratory: Chest non-tender. Clear bilateral breath sounds, no crackles, no wheezing. Cardiovascular/Chest: Regular rate and rhythm. No murmurs. No JVD., tenderness on palpation of left side of chest Peripheral Pulses: 2+ Radial (R). 2+ Radial (L). 2+ Pedal (R). 2+ Pedal (L) Abdominal Exam: Normal bowel sounds. Soft. normal abdomen, no visible veins, Nontender. No hepatospenomegaly. No masses Ankle Exam: Negative ankle edema Lower extremities: Negative lower extremity edema Neuro/Mental Status: A&O x4. Coherent. Thoughts/Psych: Normal thought pattern. Appropriate mood and affect. Good judgement and insight Skin Exam: Normal inspection. Normal color. Warm. 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 -transthoracic echo: LV ejection fraction only at 5%. Severe global hypokinesis of all cardiac chambers. Severe MR/TR. End-stage dilated cardiomyopathy. -Twelve lead EKG revealed sinus tachycardia suggestive of LVH and repolarization abnormalities. -Troponin levels peaked at 6036, 6545 - started on heparin drip - cardiology recommended to continue heparin drip, outpatient follow-up at [facility] - nitroglycerin for chest pain -morphine 2 mg p.r.n. for pain -aspirin 81 mg p.o. daily -Lipitor 80 mg hs daily -digoxin 0.125 mg daily p.o., furosemide 40 mg b.i.d. IV, spironolactone 25 mg daily p.o. metoprolol 25 mg daily p.o., lisinopril 2.5 mg daily p.o., Jardiance 10 mg daily. # Asymptomatic bacteruria # Recent history of alcohol abuse # History of Amphetamine abuse -Patient was counseled regarding cessation for >10 minutes # Prediabetes - Hemoglobin A1c 07/16/2025: 5.8 - Counseled regarding healthy lifestyle modifications # Medication noncompliance -Counseled regarding the importance of medication compliance GI prophylaxis: Pantoprazole DVT prophylaxis: heparin Diet: Cardiac Goals of care discussed with the patient for more than 23 minutes, full code Plan discussed with Dr. Adams Plan discussed with: Patient My Orders My Orders Orders - ENRRIQUE HOFFMAN Procedure Category Date Status Time Electrocardigram EKG 09/05/25 Logged 06:54 Electrocardigram EKG 09/05/25 Logged 07:54 Electrocardigram EKG 09/05/25 Logged 09:54 Morphine Sulfate [facility] 09/05/25 In Process Injection 17:15 Nitroglycerin Er [facility] 09/05/25 In Process Capsule (Nitro-Bid 17:15 Date of Service: Sep 05, 2025 Billing Provider: JORDON ADAMS MD Common Visit Codes: NOT BILLABLE ENRRIQUE HOFFMAN RESIDENT Sep 05, 2025 19:21 JORDON ADAMS MD Sep 05, 2025 23:24
[2025-09-05 21:58] LABS: INR 1.24 (0.9-1.15); Partial Thromboplastin Time 37.3 SEC (24.5-34.5); Prothrombin Time 12.9 sec (9.3-11.8)
[2025-09-05] MEDS ORDERED: MORPHINE SULFATE 4 MG/ML SYR/VIAL ONE (23:34)
[2025-09-06] VITALS (10 sets, daily range): BP systolic 99–114; BP diastolic 60–94; PULSE 76–109; RESP 16–20; TEMP 97.5–98.5; O2SAT 96–98
[2025-09-06] MEDS ORDERED: MORPHINE SULFATE 4 MG/ML SYR/VIAL ONE (05:48)
[2025-09-06 05:59] LABS: Hematocrit 40.4 % (41.0-53.0); Hemoglobin 13.3 g/dL (13.5-17.5); Mean Corpuscular Hemoglobin 30.1 pg (28.0-32.0); Mean Corpuscular Volume 91.4 fL (80.0-100.0); Nucleated Red Blood Cells % 0.2 %
[2025-09-06 06:12] LABS: INR 1.25 (0.9-1.15); Partial Thromboplastin Time 45.6 SEC (24.5-34.5); Prothrombin Time 13.0 sec (9.3-11.8)
[2025-09-06 06:24] LABS: Alanine Aminotransferase 19 U/L (7-40); Anion Gap 9 (5-15); BUN/Creatinine Ratio 16.2 (10.0-20.0); Blood Urea Nitrogen 19 mg/dL (9-23); Calcium 8.9 mg/dL (8.7-10.4); Carbon Dioxide 28 mmol/L (20-31); Chloride 102 mmol/L (98-107); Glucose 95 mg/dL (74-106); Potassium 3.8 mmol/L (3.5-5.1); Sodium 139 mmol/L (136-145); Total Protein 6.5 g/dL (5.7-8.2)
[2025-09-06 06:25] LABS: Albumin 3.8 g/dL (3.2-4.8); Bilirubin, Total 0.7 mg/dL (0.2-1.0)
[2025-09-06] MEDS: HEPARIN DRIP/D5W 100UNITS/ML 250 ML IV SCH (06:29)
[2025-09-06 06:35] LABS: Alkaline Phosphatase 127 U/L (46-116)
[2025-09-06] MEDS: LISINOPRIL 5 MG TAB PO SCH (10:00)
[2025-09-06] MEDS ORDERED: MORPHINE SULFATE INJ 2 MG/ml SYRG ONE (10:52)
[2025-09-06] MEDS ORDERED: EMPAGLIFLOZIN 10 MG TAB ONE (10:52)
[2025-09-06] MEDS: EMPAGLIFLOZIN 10 MG TAB PO SCH (10:59)
--- NOTE | 2025-09-06 11:07 | ECG ---
[facility] Test Date: 2025-09-05 Test Time: 09:24:46 Pat Name: GABI HANNA Department: Room: 0286T A Gender: M Cloth Neutralizer: CRISTA : 2000 Requested By: ENRRIQUE HOFFMAN Order Number: [id number] Reading MD: Nas Sullivan Measurements Intervals [place] Rate: 87 P: 55 NC: 173 QRS: 56 QRSD: 104 T: -81 QT: 385 QTc: 463 Interpretive Statements Sinus rhythm Left atrial enlargement Abnormal T, consider ischemia, lateral leads Baseline wander in lead(s) V3 Electronically Signed On 09-06-2025 14:14:00 PST by Nas Sullivan Please click the below link to view image of tracing.
[2025-09-06] MEDS: SPIRONOLACTONE 25 MG TAB PO SCH (12:35)
[2025-09-06] MEDS: METOPROLOL SUCCINATE XL 50 MG TAB PO SCH (12:36)
--- NOTE | 2025-09-06 12:47 | DVHPN2 ---
Consult Progress Note Subjective Other Systems: At the time of assessment, patient is in normal sinus rhythm with depressed T-waves on tool grinding technician. Objective vital signs Vital Sign Date Time Temp Pulse Resp B/P (MAP) Pulse Ox O2 Delivery O2 Flow Rate FiO2 09/06/25 12:36 82 101/70 09/06/25 11:01 17 09/06/25 09:00 97.8 97 97.8 09/06/25 08:00 Room Air* 0 21 Total Intake and Output 09/05/25 09/05/25 09/06/25 15:00 23:00 07:00 Intake Total 1570 ml 950 ml Output Total 1045 ml Balance 1570 ml -95 ml medications Current Medications Medications Dose Ordered Sig/Chrystal Route Start Time Stop Time Status Last Admin Dose Admin Furosemide 40 mg BIDD IV 09/05/25 06:00 09/06/25 05:57 40 MG Digoxin 0.125 mg DAILY PO 09/05/25 10:00 09/06/25 10:59 0.125 MG Acetaminophen 650 mg Q4HP PRN PO 09/05/25 10:15 Atorvastatin Calcium 80 mg HS PO 09/06/25 22:00 Aspirin 81 mg DAILY PO 09/06/25 10:00 09/06/25 12:35 81 MG Spironolactone 25 mg DAILY PO 09/06/25 10:00 09/06/25 12:35 25 MG Morphine Sulfate 2 mg Q4HPRN PRN IV 09/05/25 17:15 09/06/25 11:01 2 MG Nitroglycerin 2.5 mg TID PRN PO 09/05/25 17:15 Metoprolol Succinate 25 mg DAILY PO 09/06/25 10:00 09/06/25 12:36 25 MG Lisinopril 2.5 mg DAILY PO 09/06/25 10:00 Empaglifozin 10 mg DAILY PO 09/06/25 10:00 09/06/25 10:59 10 MG Heparin Sodium/ Dextrose 250 ml @ 13 mls/hr [id number] IV 09/06/25 06:30 09/06/25 06:29 13 MLS/HR Examination: GENERAL:Normal, LUNGS:Normal, CVS:Normal, NEURO:Normal laboratory and microbiology Laboratory Tests 09/06/25 05:20 Test 09/06/25 05:20 Range/Units Serum Glucose 95 74-106 mg/dL Problem List/Assessment/Plan Problem List/Assessment/Plan NSTEMI Acute on chronic decompensated HFrEF, NYHA Class III 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 Sullivan): Case reviewed and discussed with . A recent transthoracic echocardiogram done on 08/30/2025 reveals an EF of 5% with severe global hypokinesis of all cardiac chambers. Continue guideline directed medical therapy for CHF as tolerated. Continue with preload and afterload reduction. Strict intake and output, daily weights, maintain fluid restriction. The patient is noted to have a significant up trend in troponin level with current level of 6545ng/L. Given the patients noncompliance and active drug use as well as severely reduced EF, he is not an ideal candidate for any cardiac invasive procedures at this facility. The patient has been referred to [facility] where he states he was supposed to follow up on 09/05/2025 for a further plan of action. He missed his appointment due to coming to this facility. Recommendations given by primary supervisor throwing department included a Dependency Course Program and to stay drug/alcohol free for 6 months in order to qualify to be a candidate for a heart transplant. The patient also reported a lapse on home medications as he was not able to refill them on time. Strongly advised on medical compliance and risk factor modifications. Continue with close cardiac surveillance. Thank you for allowing us to care for this patient. Please call with any questions or concerns. This medical document was created using an electronic medical record system with voice recognition software and computerized dictation system. Although this document has been carefully reviewed, there might still be some phonetic and typographical errors. Occasional wrong-word or ``sound-alike substitutions may have occurred due to the inherent limitations of voice recognition software. These areas are purely typographical due to imperfections of the software programs and do not reflect any compromise in the patient's medical care. Please read the chart carefully and recognize, using context, where these substitutions have occurred. Plan discussed with: Patient, Other (Plan discussed with the primary care team) Date of Service: Sep 06, 2025 Billing Provider: ZELALEM LUONG Common Visit Codes: [id number] INP/OBS CARE(HIGH) ZELALEM LUONG Sep 06, 2025 12:47
[2025-09-06 13:30] LABS: INR 1.23 (0.9-1.15); Partial Thromboplastin Time 61.5 SEC (24.5-34.5); Prothrombin Time 12.8 sec (9.3-11.8)
--- NOTE | 2025-09-06 16:20 | DVHPNRES ---
Progress Note Date Seen: Sep 06, 2025 Resident Creating Document: ENRRIQUE HOFFMAN RESIDENT Medical Necessity Reason Pt with a Central, PICC or Fol: No Subjective Review of Systems John Guevara is a 25-year-old male with past medical history of systolic heart failure with ejection fraction 5%, methamphetamine and marijuana abuse, who presented to the ED with the chief complaint of left-sided chest pain, unprovoked, sharp and nonradiating. He mentioned it was associated with tightness in the chest. He reported shortness of breath which improves on sitting up and worsens on lying down. He does not use home oxygen. He denies any fever, chills or sick contacts in the last few days. He was recently hospitalized and discharged on 09/02/2025, when he was diagnosed with acute on chronic congestive heart failure with ejection fraction 5%. Initial twelve lead electrocardiogram revealed normal sinus rhythm with diffuse ST segment depression and PVCs. Initial troponin level of 42ng/L with significant up trend and current peak level of 6545ng/L. Significant past medical history includes end-stage cardiomyopathy, apical thrombus, supraventricular tachycardia, polysubstance use and alcohol abuse. The patient was scheduled to follow up with his oil prospecting observer at [facility] today. Past medical history : Systolic heart failure with ejection fraction 5%, apical thrombus Past surgical history: Home medications: Digoxin, Farxiga, spironolactone, Xarelto Social & Personal history: Lives at home with family, mentions methamphetamine use, alcohol abuse, UA positive for fentanyl Allergies: No known allergies Patient seen and examined at bedside. Patient is alert and oriented to time, place person and responding to all questions. Eyes: No Pain, No Vision change, No Conjunctivae inflammation, No Eyelid inflammation, No Redness ENT: No Ear pain, No Ear discharge, No Nose pain, No Nose discharge, No Nose congestion, No Mouth pain, No Mouth swelling, No Throat pain, No Throat swelling Cardiovascular: Chest Pain, No Palpitations, No Orthopnea, No Paroxysmal No Dyspnea, No Edema, No Lt Headedness Respiratory: No Cough, No Dry, No Shortness of breath, No SOB with exertion, No Wheezing, No Hemoptysis, No Pleuritic Pain, No Sputum Gastrointestinal: No Nausea, No Vomiting, No Abdominal Pain, No Diarrhea, No Constipation, No Melena, No Hematochezia Genitourinary: No Dysuria, No Frequency, No Incontinence, No Hematuria, No Retention 09/06/25- The patient was seen at bedside today. The patient complained of chest pain. He is on morphine 2 mg q.4 p.r.n. and nitroglycerin 2.5 mg p.o. t.i.d. p.r.n.. for chest pain. We will continue with the heparin drip per pharmacy. Cardiology recommended medical therapy for CHF as tolerated, continue with preload and afterload reduction. Strict intake and output, daily weights, maintain fluid restriction. Given the patients noncompliance and active drug use, he is not an ideal candidate for any invasive procedures at this time. director of environmental services consult was placed to evaluate for transfer to higher level of care for high-risk angiogram to evaluate for high-risk of recurrent readmissions, and patient was recommended to follow up at [place] post discharge. We will trend tropes before discharge and sent patient home on aspirin and Plavix. Objective vital signs Vital Sign Date Time Temp Pulse Resp B/P (MAP) Pulse Ox O2 Delivery O2 Flow Rate FiO2 09/06/25 12:48 97.6 89 17 101/66 (78) 98 97.6 09/06/25 08:00 Room Air* 0 21 Total Intake and Output 09/05/25 09/05/25 09/06/25 15:00 23:00 07:00 Intake Total 1570 ml 950 ml Output Total 1045 ml Balance 1570 ml -95 ml medications Current Medications Medications Dose Ordered Sig/Chrystal Route Start Time Stop Time Status Last Admin Dose Admin Furosemide 40 mg BIDD IV 09/05/25 06:00 09/06/25 05:57 40 MG Digoxin 0.125 mg DAILY PO 09/05/25 10:00 09/06/25 10:59 0.125 MG Acetaminophen 650 mg Q4HP PRN PO 09/05/25 10:15 Atorvastatin Calcium 80 mg HS PO 09/06/25 22:00 Aspirin 81 mg DAILY PO 09/06/25 10:00 09/06/25 12:35 81 MG Spironolactone 25 mg DAILY PO 09/06/25 10:00 09/06/25 12:35 25 MG Morphine Sulfate 2 mg Q4HPRN PRN IV 09/05/25 17:15 09/06/25 11:01 2 MG Nitroglycerin 2.5 mg TID PRN PO 09/05/25 17:15 Metoprolol Succinate 25 mg DAILY PO 09/06/25 10:00 09/06/25 12:36 25 MG Lisinopril 2.5 mg DAILY PO 09/06/25 10:00 Empaglifozin 10 mg DAILY PO 09/06/25 10:00 09/06/25 10:59 10 MG Heparin Sodium/ Dextrose 250 ml @ 13 mls/hr [id number] IV 09/06/25 06:30 09/06/25 06:29 13 MLS/HR Examination General Appearance: Cooperative. Well developed. Well nourished. NAD Head Exam: Normal inspection Neck Exam: Normal inspection. Non-tender. Normal alignment Pulmonary/Respiratory: Chest non-tender. Clear bilateral breath sounds, no crackles, no wheezing. Cardiovascular/Chest: Regular rate and rhythm. No murmurs. No JVD., tenderness on palpation of left side of chest Peripheral Pulses: 2+ Radial (R). 2+ Radial (L). 2+ Pedal (R). 2+ Pedal (L) Abdominal Exam: Normal bowel sounds. Soft. normal abdomen, no visible veins, Nontender. No hepatospenomegaly. No masses Ankle Exam: Negative ankle edema Lower extremities: Negative lower extremity edema Neuro/Mental Status: A&O x4. Coherent. Thoughts/Psych: Normal thought pattern. Appropriate mood and affect. Good judgement and insight Skin Exam: Normal inspection. Normal color. Warm. 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 -transthoracic echo: LV ejection fraction only at 5%. Severe global hypokinesis of all cardiac chambers. Severe MR/TR. End-stage dilated cardiomyopathy. -Twelve lead EKG revealed sinus tachycardia suggestive of LVH and repolarization abnormalities. -Troponin levels peaked at 6036, 6545 - on heparin drip per pharmacy - cardiology recommended to continue heparin drip, outpatient follow-up at [facility] medical management of CHF - nitroglycerin for chest pain -morphine 2 mg p.r.n. for pain -aspirin 81 mg p.o. daily -Lipitor 80 mg hs daily -digoxin 0.125 mg daily p.o., furosemide 40 mg b.i.d. IV, spironolactone 25 mg daily p.o. metoprolol 25 mg daily p.o., lisinopril 2.5 mg daily p.o., Jardiance 10 mg daily. # Asymptomatic bacteruria # Recent history of alcohol abuse # History of Amphetamine abuse -Patient was counseled regarding cessation for >10 minutes # Prediabetes - Hemoglobin A1c 07/16/2025: 5.8 - Counseled regarding healthy lifestyle modifications # Medication noncompliance -Counseled regarding the importance of medication compliance DVT prophylaxis: heparin drip per pharmacy Diet: Cardiac Goals of care discussed with the patient for more than 23 minutes, full code Plan discussed with Plan discussed with: Patient, Other My Orders My Orders Orders - ENRRIQUE HOFFMAN RESIDENT Procedure Category Date Status Time Morphine Sulfate PHA 09/05/25 In Process Injection 17:15 Nitroglycerin Er PHA 09/05/25 In Process Capsule (Nitro-Bid 17:15 * Manager Support Services CONS 09/06/25 Transmitted Consult * Manager Support Services CONS 09/06/25 Transmitted Consult Date of Service: Sep 06, 2025 Billing Provider: [place] DUKE MD Common Visit Codes: [id number] INP/OBS CARE(HIGH) ENRRIQUE HOFFMAN RESIDENT Sep 06, 2025 16:20
[2025-09-06 19:14] LABS: INR 1.2 (0.9-1.15); Partial Thromboplastin Time 53.8 SEC (24.5-34.5); Prothrombin Time 12.5 sec (9.3-11.8)
[2025-09-06] MEDS: ATORVASTATIN 20 MG TAB PO SCH (21:26)
[2025-09-07] VITALS (10 sets, daily range): BP systolic 99–121; BP diastolic 49–78; PULSE 80–139; RESP 16–19; TEMP 97.1–98.2; O2SAT 94–100
[2025-09-07 01:09] LABS: Hematocrit 43.2 % (41.0-53.0); Hemoglobin 14.2 g/dL (13.5-17.5); Mean Corpuscular Hemoglobin 30.5 pg (28.0-32.0); Mean Corpuscular Volume 92.6 fL (80.0-100.0); Nucleated Red Blood Cells % 0.0 %
[2025-09-07 01:15] LABS: Potassium 4.2 mmol/L (3.5-5.1); Sodium 138 mmol/L (136-145)
[2025-09-07 01:16] LABS: Anion Gap 12 (5-15); Carbon Dioxide 29 mmol/L (20-31)
[2025-09-07 01:17] LABS: Calcium 9.7 mg/dL (8.7-10.4)
[2025-09-07 01:19] LABS: Chloride 97 mmol/L (98-107)
[2025-09-07 01:21] LABS: Glucose 87 mg/dL (74-106)
[2025-09-07 01:22] LABS: BUN/Creatinine Ratio 17.7 (10.0-20.0); Blood Urea Nitrogen 22 mg/dL (9-23)
[2025-09-07 01:29] LABS: INR 1.2 (0.9-1.15); Partial Thromboplastin Time 61.9 SEC (24.5-34.5); Prothrombin Time 12.5 sec (9.3-11.8)
--- NOTE | 2025-09-07 13:10 | DVHPNRES ---
Progress Note Date Seen: Sep 07, 2025 Resident Creating Document: KAYLA PAINTING RESIDENT Medical Necessity Reason Pt with a Central, PICC or Fol: No Subjective Review of Systems John Guevara is a 25-year-old male with past medical history of systolic heart failure with ejection fraction 5%, methamphetamine and marijuana abuse, who presented to the ED with the chief complaint of left-sided chest pain, unprovoked, sharp and nonradiating. He mentioned it was associated with tightness in the chest. He reported shortness of breath which improves on sitting up and worsens on lying down. He does not use home oxygen. He denies any fever, chills or sick contacts in the last few days. He was recently hospitalized and discharged on 09/02/2025, when he was diagnosed with acute on chronic congestive heart failure with ejection fraction 5%. Initial twelve lead electrocardiogram revealed normal sinus rhythm with diffuse ST segment depression and PVCs. Initial troponin level of 42ng/L with significant up trend and current peak level of 6545ng/L. Significant past medical history includes end-stage cardiomyopathy, apical thrombus, supraventricular tachycardia, polysubstance use and alcohol abuse. The patient was scheduled to follow up with his forester aide at [facility] today. Past medical history : Systolic heart failure with ejection fraction 5%, apical thrombus Past surgical history: Home medications: Digoxin, Farxiga, spironolactone, Xarelto Social & Personal history: Lives at home with family, mentions methamphetamine use, alcohol abuse, UA positive for fentanyl Allergies: No known allergies Patient seen and examined at bedside. Patient is alert and oriented to time, place person and responding to all questions. Eyes: No Pain, No Vision change, No Conjunctivae inflammation, No Eyelid inflammation, No Redness ENT: No Ear pain, No Ear discharge, No Nose pain, No Nose discharge, No Nose congestion, No Mouth pain, No Mouth swelling, No Throat pain, No Throat swelling Cardiovascular: Chest Pain, No Palpitations, No Orthopnea, No Paroxysmal No Dyspnea, No Edema, No Lt Headedness Respiratory: No Cough, No Dry, No Shortness of breath, No SOB with exertion, No Wheezing, No Hemoptysis, No Pleuritic Pain, No Sputum Gastrointestinal: No Nausea, No Vomiting, No Abdominal Pain, No Diarrhea, No Constipation, No Melena, No Hematochezia Genitourinary: No Dysuria, No Frequency, No Incontinence, No Hematuria, No Retention 09/06/25- The patient was seen at bedside today. The patient complained of chest pain. He is on morphine 2 mg q.4 p.r.n. and nitroglycerin 2.5 mg p.o. t.i.d. p.r.n.. for chest pain. We will continue with the heparin drip per pharmacy. Cardiology recommended medical therapy for CHF as tolerated, continue with preload and afterload reduction. Strict intake and output, daily weights, maintain fluid restriction. Given the patients noncompliance and active drug use, he is not an ideal candidate for any invasive procedures at this time. youth services specialist consult was placed to evaluate for transfer to higher level of care for high-risk angiogram to evaluate for high-risk of recurrent readmissions, and patient was recommended to follow up at [facility] post discharge. We will trend tropes before discharge and sent patient home on aspirin and Plavix. : Patient seen at bedside. Patient is still complaining of chest pain 10/10 in intensity. Patient is on heparin drip. [facility] accepted for transfer. Awaiting bed. Objective vital signs Vital Sign Date Time Temp Pulse Resp B/P (MAP) Pulse Ox O2 Delivery O2 Flow Rate FiO2 09/07/25 11:56 50 14 127/66 09/07/25 08:38 97.8 94 97.8 09/07/25 08:00 Room Air* 0 21 Total Intake and Output 09/06/25 09/06/25 09/07/25 15:00 23:00 07:00 Intake Total 898 ml 350 ml Output Total 900 ml Balance 898 ml -550 ml medications Current Medications Medications Dose Ordered Sig/Chrystal Route Start Time Stop Time Status Last Admin Dose Admin Furosemide 40 mg BIDD IV 09/05/25 06:00 09/07/25 06:34 40 MG Digoxin 0.125 mg DAILY PO 09/05/25 10:00 09/07/25 11:44 0.125 MG Acetaminophen 650 mg Q4HP PRN PO 09/05/25 10:15 Atorvastatin Calcium 80 mg HS PO 09/06/25 22:00 09/06/25 21:26 80 MG Aspirin 81 mg DAILY PO 09/06/25 10:00 09/07/25 11:43 81 MG Spironolactone 25 mg DAILY PO 09/06/25 10:00 09/07/25 11:44 25 MG Morphine Sulfate 2 mg Q4HPRN PRN IV 09/05/25 17:15 09/07/25 11:56 2 MG Nitroglycerin 2.5 mg TID PRN PO 09/05/25 17:15 Metoprolol Succinate 25 mg DAILY PO 09/06/25 10:00 09/07/25 11:44 25 MG Lisinopril 2.5 mg DAILY PO 09/06/25 10:00 09/07/25 11:43 2.5 MG Empaglifozin 10 mg DAILY PO 09/06/25 10:00 09/07/25 11:44 10 MG Heparin Sodium/ Dextrose 250 ml @ 13 mls/hr [id number] IV 09/06/25 06:30 09/07/25 02:19 13 MLS/HR Examination General Appearance: Cooperative. Well developed. Well nourished. NAD Head Exam: Normal inspection Neck Exam: Normal inspection. Non-tender. Normal alignment Pulmonary/Respiratory: Chest non-tender. Clear bilateral breath sounds, no crackles, no wheezing. Cardiovascular/Chest: Regular rate and rhythm. No murmurs. No JVD., tenderness on palpation of left side of chest Peripheral Pulses: 2+ Radial (R). 2+ Radial (L). 2+ Pedal (R). 2+ Pedal (L) Abdominal Exam: Normal bowel sounds. Soft. normal abdomen, no visible veins, Nontender. No hepatospenomegaly. No masses Ankle Exam: Negative ankle edema Lower extremities: Negative lower extremity edema Neuro/Mental Status: A&O x4. Coherent. Thoughts/Psych: Normal thought pattern. Appropriate mood and affect. Good judgement and insight Skin Exam: Normal inspection. Normal color. Warm. 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 -transthoracic echo: LV ejection fraction only at 5%. Severe global hypokinesis of all cardiac chambers. Severe MR/TR. End-stage dilated cardiomyopathy. -Twelve lead EKG revealed sinus tachycardia suggestive of LVH and repolarization abnormalities. -Troponin levels peaked at 6036, 6545 - on heparin drip per pharmacy - cardiology recommended to continue heparin drip, outpatient follow-up at [facility], medical management of CHF - nitroglycerin for chest pain -morphine 2 mg p.r.n. for pain -aspirin 81 mg p.o. daily -Lipitor 80 mg hs daily -digoxin 0.125 mg daily p.o., furosemide 40 mg b.i.d. IV, spironolactone 25 mg daily p.o. metoprolol 25 mg daily p.o., lisinopril 2.5 mg daily p.o., Jardiance 10 mg daily. # Asymptomatic bacteruria # Recent history of alcohol abuse # History of Amphetamine abuse -Patient was counseled regarding cessation for >10 minutes # Prediabetes - Hemoglobin A1c 07/16/2025: 5.8 - Counseled regarding healthy lifestyle modifications # Medication noncompliance -Counseled regarding the importance of medication compliance DVT prophylaxis: heparin drip per pharmacy Diet: Cardiac Goals of care discussed with the patient for more than 23 minutes, full code Plan discussed with Plan discussed with: Patient Date of Service: Sep 07, 2025 Billing Provider: [place] DUKE MD Common Visit Codes: [id number] INP/OBS CARE(HIGH) KAYLA PAINTING RESIDENT Sep 07, 2025 13:10
--- NOTE | 2025-09-07 17:36 | DVHPN2 ---
Consult Progress Note Subjective Other Systems: Patient denies chest pain at time of assessment. Patient in sinus tachycardia with ST-depression on target worker Objective vital signs Vital Sign Date Time Temp Pulse Resp B/P (MAP) Pulse Ox O2 Delivery O2 Flow Rate FiO2 09/07/25 17:29 93 18 102/50 09/07/25 16:59 97.9 97 97.9 09/07/25 13:21 Room Air* 0 21 Total Intake and Output 09/06/25 09/06/25 09/07/25 15:00 23:00 07:00 Intake Total 898 ml 350 ml Output Total 900 ml Balance 898 ml -550 ml medications Current Medications Medications Dose Ordered Sig/Chrystal Route Start Time Stop Time Status Last Admin Dose Admin Furosemide 40 mg BIDD IV 09/05/25 06:00 09/07/25 17:28 40 MG Digoxin 0.125 mg DAILY PO 09/05/25 10:00 09/07/25 11:44 0.125 MG Acetaminophen 650 mg Q4HP PRN PO 09/05/25 10:15 Atorvastatin Calcium 80 mg HS PO 09/06/25 22:00 09/06/25 21:26 80 MG Aspirin 81 mg DAILY PO 09/06/25 10:00 09/07/25 11:43 81 MG Spironolactone 25 mg DAILY PO 09/06/25 10:00 09/07/25 11:44 25 MG Morphine Sulfate 2 mg Q4HPRN PRN IV 09/05/25 17:15 09/07/25 17:29 2 MG Nitroglycerin 2.5 mg TID PRN PO 09/05/25 17:15 Metoprolol Succinate 25 mg DAILY PO 09/06/25 10:00 09/07/25 11:44 25 MG Lisinopril 2.5 mg DAILY PO 09/06/25 10:00 09/07/25 11:43 2.5 MG Empaglifozin 10 mg DAILY PO 09/06/25 10:00 09/07/25 11:44 10 MG Heparin Sodium/ Dextrose 250 ml @ 13 mls/hr [id number] IV 09/06/25 06:30 09/07/25 02:19 13 MLS/HR Examination: GENERAL:Normal, LUNGS:Normal, CVS:Abnormal (Sinus tachycardia with ST-depression on monitor), NEURO:Normal laboratory and microbiology Laboratory Tests 09/07/25 00:42 Test 09/07/25 00:42 Range/Units Serum Glucose 87 74-106 mg/dL Problem List/Assessment/Plan Problem List/Assessment/Plan NSTEMI Acute on chronic decompensated HFrEF, NYHA Class III 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 Sullivan): Case reviewed and discussed with . A recent transthoracic echocardiogram done on 08/30/2025 reveals an EF of 5% with severe global hypokinesis of all cardiac chambers. Continue guideline directed medical therapy for CHF as tolerated. Continue with preload and afterload reduction. Strict intake and output, daily weights, maintain fluid restriction. The patient is noted to have a significant up trend in troponin level with current level of 6545ng/L. Given the patients noncompliance and active drug use as well as severely reduced EF, he is not an ideal candidate for any cardiac invasive procedures at this facility. The patient has been referred to [facility] where he states he was supposed to follow up on 09/05/2025 for a further plan of action. He missed his appointment due to coming to this facility. Recommendations given by primary crook operator included a Dependency Course Program and to stay drug/alcohol free for 6 months in order to qualify to be a candidate for a heart transplant. The patient also reported a lapse on home medications as he was not able to refill them on time. Strongly advised on medical compliance and risk factor modifications. Primary team has consulted psychotherapist social worker to transfer patient to [place]. The patient has been accepted in his pending transfer at this time upon bed availability. Continue with close cardiac surveillance. Thank you for allowing us to care for this patient. Please call with any questions or concerns. This medical document was created using an electronic medical record system with voice recognition software and computerized dictation system. Although this document has been carefully reviewed, there might still be some phonetic and typographical errors. Occasional wrong-word or ``sound-alike substitutions may have occurred due to the inherent limitations of voice recognition software. These areas are purely typographical due to imperfections of the software programs and do not reflect any compromise in the patient's medical care. Please read the chart carefully and recognize, using context, where these substitutions have occurred. Plan discussed with: Patient Date of Service: Sep 07, 2025 Billing Provider: ZELALEM LUONG Common Visit Codes: [id number] INP/OBS CARE(HIGH) ZELALEM LUONG Sep 07, 2025 17:36
== END 2025-09-07 23:15 | disposition short-term general hospital (02) | DRG 194 ==
LOC: EDBD 20:53 → ER 20:53 → OVERFLOW 09-05 01:09 → ER 09-05 01:12 → TELE-WESTW 09-05 03:45
PROVIDERS: ADMIT Internal Medicine; ATTEND Internal Medicine
DX: I50.23 Acute on chronic systolic (congestive) heart failure (principal); I21.A1 Myocardial infarction type 2; I08.1 Rheumatic disorders of both mitral and tricuspid valves; I42.7 Cardiomyopathy due to drug and external agent; R73.03 Prediabetes; I42.0 Dilated cardiomyopathy; F17.290 Nicotine dependence, other tobacco product, uncomplicated; Z91.199 Patient's noncompliance with other medical treatment and regimen due to unspecified reason; Z83.3 Family history of diabetes mellitus
CPT/HCPCS: 36415; 71045; 80048; 80053; 80307; 80320; 81001; 83880; 84484; 85025; 85610; 85730; 87081; 87804; 93005; 96374; 96375; 96376; G0378